=== PATIENT | male | born 1940 | race Caucasian/White ===

== ENCOUNTER → 2019-10-24 | Outpatient (CLI) | payer MEDICARE, OTHER, SELFPAY | PROVIDERS: Family Provider Electrodiagnostic Medicine; Visit Provider Nurse Practitioner | DX: E22.0 Acromegaly and pituitary gigantism (principal); D51.9 Vitamin B12 deficiency anemia, unspecified | CPT/HCPCS: 96372; J2353; J3420 ==

== ENCOUNTER 2019-11-04 12:59 | Outpatient (CLI) | payer MEDICARE, OTHER, SELFPAY ==
--- NOTE | 2019-11-04 13:15 | MR_ITS ---
WS: [id number] MRI HEAD WITH CONTRAST WITH PITUITARY PROTOCOL TECHNIQUE: Sagittal T1, T2 axial, T2 axial FLAIR, axial susceptibility weighted imaging, axial diffus ion weighted images, and coronal T2 images were obtained. Pre and post-T1 axial and post T1 coronal i mages. ADC and FSPGR images. High-resolution pituitary imaging CLINICAL INFORMATION: PITUITARY ADENOMA COMPARISON: MRI 6 30,015 FINDINGS: No evidence of restricted diffusion to suggest acute ischemia. Ventricular system and basal cisterns are patent. Moderate small vessel changes with moderate parenchymal volume loss. Small vessel changes in the basia. Normal posterior fossa. Normal vascular flow voids at the skull base. No extra-axial fl uid collections. No evidence of mass or mass effect. No hemosiderin on the susceptibility weighted im ages. Normal optic chiasm and pituitary infundibulum. No evidence of sellar or suprasellar mass. No evidenc e of microadenoma. Normal cavernous sinuses and Meckel's cave. Normal dural venous sinuses. No abnorm al intracranial enhancement. Normal vascular flow voids at the skull base. Proximal 7th and 8th cranial nerves appear normal. Mild disc bulging upper cervical spine at C3-C4 with mild central canal stenosis. MR/MR pituitary wo/w con* [id number] IMPRESSION: 1. No evidence of restricted diffusion to suggest acute ischemia. 2. Moderate small vessel changes with moderate parenchymal volume loss. Small vessel changes in the basia. This is slightly progressed since 2014. 3. No evidence of enhancing sellar or suprasellar mass. No evidence of microad enoma. 4. No abnormal intracranial enhancement. 5. No other significant interval changes.
== END 2019-11-04 13:00 | disposition home or self-care (01) ==
LOC: RADWPI 13:05
PROVIDERS: Family Provider Electrodiagnostic Medicine; PCP Electrodiagnostic Medicine; Referring Provider Electrodiagnostic Medicine; Visit Provider Electrodiagnostic Medicine
DX: D35.2 Benign neoplasm of pituitary gland (principal)
CPT/HCPCS: 70553; A9579

== ENCOUNTER 2019-11-17 09:03 | Outpatient (CLI) | payer MEDICARE, OTHER, SELFPAY ==
[2019-11-17 10:23] LABS: Alanine Aminotransferase 252 U/L (0-41); Albumin Level 4.1 g/dL (3.5-5.2); Alkaline Phosphatase 197 IU/L (40-130); Anion Gap 13.2 (5-19); Aspartate Amino Transferase 201 U/L (0-40); Blood Urea Nitrogen 19 mg/dL (8-23); Carbon Dioxide 31 mmol/L (22-29); Chloride 96 mmol/L (98-107); Free T4 Free Thyroxine 1.23 ng/dL (0.82-1.77); Globulin 3.3 g/dL (1.3-4.6); Glucose 177 mg/dL (74-106); Potassium 4.2 mmol/L (3.5-5.1); Sodium 136 mmol/L (136-145); Thyroid Stimulating Hormone 0.03 uIU/mL (0.27-4.20); Total Bilirubin 2.8 mg/dL (0.15-1.2); Total Protein 7.4 g/dL (6.6-8.7)
[2019-11-17 11:36] LABS: Basophils % 0.1 %; Eosinophils % 0.4 %; Hematocrit 45.5 % (42.0-52.0); Hemoglobin 14.8 g/dL (11.7-16.6); Lymphocytes # 0.7 10^3/uL (0.8-4.8); Lymphocytes % 8.6 %; Mean Corpuscular HGB Conc 32.5 g/dL (30.0-36.0); Mean Corpuscular Hemoglobin 29.7 pg (28.0-34.0); Mean Corpuscular Volume 91.2 fL (80-94); Mean Platelet Volume 10.3 fL (7.4-10.4); Monocytes # 0.4 10^3/uL (0.2-0.9); Monocytes % 5.3 %; Neutrophils # 6.6 10^3/uL (1.8-7.7); Neutrophils % 85.5 %; Nucleated Red Blood Cells % 0 %; Platelet Count 150 10^3/cmm (130-400); Red Blood Count 4.99 10^6/uL (4.1-5.3); Red Cell Distribution Width 12.6 % (12.1-15.1); White Blood Count 7.7 10^3/uL (4.0-10.0)
== END 2019-11-17 09:04 | disposition home or self-care (01) ==
LOC: ONCMED 09:08
PROVIDERS: Family Provider Electrodiagnostic Medicine; PCP Electrodiagnostic Medicine; Visit Provider Nurse Practitioner
DX: E22.0 Acromegaly and pituitary gigantism (principal); D51.9 Vitamin B12 deficiency anemia, unspecified; D35.2 Benign neoplasm of pituitary gland
CPT/HCPCS: 80053; 83003; 84146; 84305; 84307; 84439; 84443; 85025

== ENCOUNTER 2019-11-24 13:02 | Outpatient (CLI) | payer MEDICARE, OTHER, SELFPAY ==
[2019-11-24] MEDS: octreotide LAR depot 30 mg Kit IM (13:40)
[2019-11-24] MEDS: cyanocobalamin 1,000 mcg/mL SDV 1000 MCG IM (13:45)
--- NOTE | 2019-11-24 23:03 | ONC FU_ITS ---
Dr. Epstein Patient Follow-Up Note Patient: Asif Mcmillan Unit #: [id number]: 1940 Dicatated By: Yandel Epstein M.D.Date of Visit:Nov 24, 2019 Onc Med Follow-up/Prog Note Chief Complaint: Pituitary adenoma/acromegaly. 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 He also has B12 deficiency. He underwent transsphenoidal hypophysectomy for pituitary adenoma in 1999. He had associated acromegaly. He has since then been on treatment with Sandostatin analog. During this time he has continued to have mildly elevated but stable growth hormone levels. He has been stable clinically with no obvious recurrence/progression of his tumor. During followup, he did develop evidence of B12 deficiency, for which he remains on B12 replacement. His other medical illnesses include hypertension, hyperlipidemia, type 2 diabetes, GERD, and benign prostatic hypertrophy. He also is being followed by Dr. Mejias for thyroid nodules. He had smoked in the past, but he quit at least 25 years ago. On a visit in March 2013 he had reported some mild GI symptoms, which he had just attributed to a bug . His symptoms, however, persisted. He eventually presented to the emergency room in June 2013, at which point he had elevated liver enzymes and jaundice. CT showed multiple obstructing calculi in the common bile duct. He was transferred to [facility] in [place] where he underwent ERCP and stone extraction. In December 2013 he underwent left total knee arthroplasty by Dr. Miller in [place]. He underwent carpal tunnel release surgery in November or December 2017. He has been feeling pretty good generally, though he says that about a month ago he developed chills and pretty severe abdominal pain. Those symptoms had subsequently improved, but since then he has continued to have some mild discomfort in the epigastric area. He has had pretty good energy. ECOG score is 1. Appetite has been okay. He has not had shortness of breath or cough. He occasionally has a little bit of chest pain. He also sometimes has acid reflux. His bowel and bladder function have been okay. He currently is not having any significant joint or bone pain. He sometimes has lightheadedness, and he sometimes has numbness in his feet. Medications: Acetaminophen 1 Tablet (of 500 mg) Oral PRN, Lovastatin 40 mg - Take 1 Tablet Oral daily, MetFORMIN HCl 1 (500 mg) Tablet Oral daily, Metoprolol Succinate ER 1 Tablet (of 25 mg) Tablet SR 24 HR Oral daily, Probiotic Daily 1 Capsule Oral daily, Quinapril HCl 1 (10 mg) Tablet Oral daily PRN Allergies: No Known Allergies. Review of Systems: Constitutional - His energy is pretty good. He does light work. Appetite is good and weight is stable. He had chills about a month ago, but no documented fever. He has no night sweating. ECOG score is 1, ENMT - His sinuses are dry. No mouth sores. No sore throat or difficulty swallowing, Hematologic/Lymphatic - No abnormal bruising or bleeding, Respiratory - No shortness of breath. No cough. No pleuritic pain or hemoptysis, Cardiovascular - He occasionally has a little bit of chest pain. No palpitations, Gastrointestinal - He has had some discomfort in the epigstric area. No nausea or vomiting. He sometimes has acid reflux. No diarrhea or constipation. No blood in the stool or black stools, Genitourinary (M) - No dysuria or hematuria. No urinary frequency. No urgency or incontinence, Musculoskeletal - He currently has no significant joint or bone pain, Integumentary - No skin complications, Neurologic - No headache. He sometimes has lightheadedness. He sometimes has numbness in his feet, Psychiatric - No anxiety or depression. No insomnia. Vital Signs: Performed on Nov 24, 2019 13:18 Height - 68.00 in Weight - 199.8 lbs (LOW) BSA - 2.04 sq.m BMI - 30.38 (HIGH) Temperature - 97.8 F (LOW) Pulse - 77 /min Respiration - 20 /min BP - 163/80 mm(hg) (HIGH) O2 Sat - 93 % (LOW) Pain - 0 Physical Examination: Constitutional - He looks good generally, Eyes - Sclerae nonicteric. Conjunctivae clear, ENMT - No lesions noted in the oral cavity, Hematologic/Lymphatic - No cervical, clavicular, or axillary adenopathy, Respiratory - Lungs are clear with good air movement bilaterally, Cardiovascular - Heart rhythm is regular. There is a II/ systolic murmur at the base. There is no gallop or rub noted, Abdomen - Soft and nontender. Liver and spleen are not enlarged. There is no abdominal mass or ascites noted and there is no inguinal adenopathy, Extremities - No edema, Integumentary - There is a raised, keratotic skin lesion in the posterior aspect of the upper left arm. The appearance is suspicious for squamous cell cancer, Neurologic - No focal neurologic deficits noted. Lab/Imaging: CBC shows hemoglobin 14.8 g, white blood cell count 7700, and platelet count 150,000. His comprehensive metabolic profile shows elevated total bilirubin at 2.8 mg/dL with SGOT 201/40 U/L, SGPT 252/41 U/L, and alkaline phosphatase 197/130 IU/L. Impression: 1. Patient with pituitary adenoma with associated acromegaly. He has been on treatment with Sandostatin LAR following transsphenoidal hypophysectomy in 1999, thus far with no evidence of disease progression. 2. During followup he also was found to have evidence of B12 deficiency, for which he has been on B12 replacement. His other medical illnesses include: 3. Hypertension. 4. Hyperlipidemia. 5. Type II diabetes. 6. GERD. 7. Benign prostatic hypertrophy, status post TURP in September 2009. 8. Degenerative arthritis. 9. He had an episode of choledocholithiasis in June 2013. He was treated successfully with ERCP and stone extraction. 10. He is followed by Dr. Mejias for thyroid nodules. During follow-up he has continued his monthly somatostatin analog injections and he also has continued monthly B12 injections. His overall clinical status has remained stable, though last month he did have an episode of significant abdominal pain with chills. Since then he is continued to have some mild discomfort in the epigastric area. His bilirubin and liver enzymes are again mildly elevated. The clinical picture is very suspicious for recurrence of common duct stones. In addition, he does have a fairly prominent skin lesion on the left arm, appearance of which is suspicious for a squamous cell cancer. Plan: He continues treatment with Sandostatin LAR 30 mg by intramuscular injection monthly, and he will continue his monthly B12 injections. He will be scheduled for CT abdomen/pelvis. He will have further evaluation as indicated. In the meantime, he is to check with Dr. Soto regarding excision of the skin lesion on his left arm. I will see him again in 6 months, or sooner as needed. Signed By: Yanedl Epstein M.D. <<Signature on File>>
== END 2019-11-24 13:03 | disposition home or self-care (01) ==
LOC: ONCMED 13:06
PROVIDERS: Family Provider Electrodiagnostic Medicine; PCP Electrodiagnostic Medicine; Visit Provider Internal Medicine Medical Oncology
DX: E22.0 Acromegaly and pituitary gigantism (principal); D51.9 Vitamin B12 deficiency anemia, unspecified; E04.1 Nontoxic single thyroid nodule; I10 Essential (primary) hypertension; E78.5 Hyperlipidemia, unspecified; E11.9 Type 2 diabetes mellitus without complications; K21.9 Gastro-esophageal reflux disease without esophagitis; N40.0 Benign prostatic hyperplasia without lower urinary tract symptoms; M19.90 Unspecified osteoarthritis, unspecified site; L98.9 Disorder of the skin and subcutaneous tissue, unspecified; Z79.84 Long term (current) use of oral hypoglycemic drugs; Z87.891 Personal history of nicotine dependence
CPT/HCPCS: 96372; 99214; J2353; J3420

== ENCOUNTER 2019-12-05 08:51 | Outpatient (CLI) | payer MEDICARE, OTHER, SELFPAY ==
--- NOTE | 2019-12-05 08:59 | CT_ITS ---
WS: [id number] CT scan of the abdomen and pelvis with Oral and IV contrast. Additional two-dimensional coronal and s agittal reconstruction was performed. 12/05/2019 Clinical Data: Anemia, esophageal REFLUX, BENIGN NEOPLASM OF PITUITARY GLAND Comparison: CT abdomen and pelvis, 12/31/2017 DLP: 1165.[address] scans at [facility] use at least one of these dose optimization techniques: automat ed exposure control; mA and/or kV adjustment per patient size (includes targeted exams where dose is matched to clinical indication); or iterative reconstruction. Findings: The lower lungs show no nodules, masses or effusions. The liver, spleen, adrenal glands and pancreas are not changed. There is air in the liver bile ducts unchanged. The gallbladder is absent with clips in the gallbladder fossa from a cholecystectomy. The kidneys show equal bilateral contrast excretion with bilateral cysts. The left cyst is 6.0 cm with p eripheral calcification. No renal masses, hydronephrosis or calculi can be seen. The abdominal aorta is normal in size with calcification in the wall.. No appendicitis or diverticulitis is seen. Oral contrast is in the stomach, small bowel and proximal colon and there is no bowel dilatation. No abscess, adenopathy, ascites, mass, obstruction or free ai r is seen. The bladder shows a thick wall probably from chronic outlet obstruction. The prostate is enlarged.. N o inguinal hernia is seen. 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 CT/CT abdomen pelvis w con* [id number] Impression: 1. Cholecystectomy, biliary air, prostate enlargement, renal cysts and bladder wall thickening unchanged. 2. Negative for acute intra-abdominal or pelvic abnormalities.
[2019-12-05] MEDS: iohexol 300 mg/mL 50 mL Btl PO (09:08)
[2019-12-05] MEDS: iohexol 300 mg/mL 100 mL Btl IV (11:47)
== END 2019-12-05 08:52 | disposition home or self-care (01) ==
LOC: ONCMED 08:56
PROVIDERS: Family Provider Electrodiagnostic Medicine; PCP Electrodiagnostic Medicine; Visit Provider Internal Medicine Medical Oncology
DX: R10.13 Epigastric pain (principal); R74.8 Abnormal levels of other serum enzymes; N40.0 Benign prostatic hyperplasia without lower urinary tract symptoms; Q61.02 Congenital multiple renal cysts; Z90.49 Acquired absence of other specified parts of digestive tract
CPT/HCPCS: 74177; Q9967

== ENCOUNTER → 2019-12-22 08:13 | Outpatient (BNVA) | payer MEDICARE, OTHER, SELFPAY | PROVIDERS: Family Provider Electrodiagnostic Medicine; PCP Electrodiagnostic Medicine; Visit Provider Urology | DX: C67.9 Malignant neoplasm of bladder, unspecified (principal); N39.9 Disorder of urinary system, unspecified; N42.1 Congestion and hemorrhage of prostate; N40.1 Benign prostatic hyperplasia with lower urinary tract symptoms; Z85.51 Personal history of malignant neoplasm of bladder | CPT/HCPCS: 81001 ==

== ENCOUNTER 2019-12-25 12:12 | Outpatient (CLI) | payer MEDICARE, OTHER, SELFPAY ==
[2019-12-25] MEDS: octreotide LAR depot 30 mg Kit IM (12:39)
[2019-12-25] MEDS: cyanocobalamin 1,000 mcg/mL SDV 1000 MCG SUBCUT (12:40)
== END 2019-12-25 12:13 | disposition home or self-care (01) ==
LOC: ONCMED 12:14
PROVIDERS: Family Provider Electrodiagnostic Medicine; PCP Electrodiagnostic Medicine; Visit Provider Internal Medicine Medical Oncology
DX: E22.0 Acromegaly and pituitary gigantism (principal); D51.9 Vitamin B12 deficiency anemia, unspecified
CPT/HCPCS: 96372; J2353; J3420

== ENCOUNTER 2020-01-23 09:53 | Outpatient (CLI) | payer MEDICARE, OTHER, SELFPAY ==
[2020-01-23] MEDS: cyanocobalamin 1,000 mcg/mL SDV 1000 MCG SUBCUT (10:10)
[2020-01-23] MEDS: octreotide LAR depot 30 mg Kit IM (10:12)
== END 2020-01-23 09:54 | disposition home or self-care (01) ==
LOC: ONCMED 09:53
PROVIDERS: Family Provider Electrodiagnostic Medicine; PCP Electrodiagnostic Medicine; Visit Provider Internal Medicine Medical Oncology
DX: E22.0 Acromegaly and pituitary gigantism (principal); D51.9 Vitamin B12 deficiency anemia, unspecified
CPT/HCPCS: 96372; J2353; J3420

== ENCOUNTER 2020-02-23 13:45 | Outpatient (CLI) | payer MEDICARE, OTHER, SELFPAY ==
[2020-02-23] MEDS: cyanocobalamin 1,000 mcg/mL SDV 1000 MCG IM (13:55)
[2020-02-23] MEDS: octreotide LAR depot 30 mg Kit IM (13:55)
== END 2020-02-23 13:46 | disposition home or self-care (01) ==
LOC: ONCMED 13:45
PROVIDERS: Family Provider Electrodiagnostic Medicine; PCP Electrodiagnostic Medicine; Visit Provider Internal Medicine Medical Oncology
DX: E22.0 Acromegaly and pituitary gigantism (principal); D35.2 Benign neoplasm of pituitary gland; D51.9 Vitamin B12 deficiency anemia, unspecified
CPT/HCPCS: 96372; J2353; J3420

== ENCOUNTER 2020-03-07 19:50 | Emergency (ER) | payer MEDICARE, OTHER, SELFPAY ==
[2020-03-07 19:51] VITALS: BP 96/62; PULSE 118; RESP 20; TEMP 37.5; O2SAT 97; BMI 27.2
--- NOTE | 2020-03-07 19:57 | CTR_ITS ---
PROCEDURE INFORMATION: Exam: CT Head Without Contrast Exam date and time: 03/07/2020 8:05 PM Age: 79 years old Clinical indication: Altered mental status/memory loss and fever; Confusion or disorientation; Patient HX: AMS - fever - known pituitary adenoma TECHNIQUE: Imaging protocol: Computed tomography of the head without contrast. Radiation optimization: All CT scans at this facility use at least one of these dose optimization techniques: automated exposure control; mA and/or kV adjustment per patient size (includes targeted exams where dose is matched to clinical indication); or iterative reconstruction.Total DLP: 797.96 mGy-cm COMPARISON: MR pituitary wo/w con* [id number] 11/04/2019 1:13 PM FINDINGS: Brain: Mild atrophy and mild white matter chronic microvascular changes are noted. No hemorrhage or CT evidence of acute infarction is seen. Ventricles: Normal. No ventriculomegaly. Bones/joints: Unremarkable. No acute fracture. Sinuses: Mild right anterior ethmoid sinusitis is appreciated. Mastoid air cells: Visualized mastoid air cells are well aerated. Soft tissues: Unremarkable. CT/CT head wo con* [id number] IMPRESSION: No acute intracranial abnormality. Radiation Dose CTDIVOL = (mGy): DLP = 797.96 (mGy-cm)
--- NOTE | 2020-03-07 19:57 | XR_ITS ---
WS: [id number] PORTABLE CHEST HISTORY: ams COMPARISON: 07/11/2013 Pacer pads are present over the thorax. Coarse interstitial thickening throughout both lungs. Increasing consolidation and density in the RIG HT infrahilar region is probably areas of atelectasis. Similar findings on the LEFT which are partial ly obscured. No pleural effusion or pneumothorax. Cardiac size: Normal. Mediastinum/Aorta: Moderate atherosclerosis aorta with ectasia. 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 Sclerotic foci in the RIGHT scapula. Degenerative changes at the glenohumeral joints. XR/XR chest 1V portable [id number] IMPRESSION: 1. Chronic emphysema. 2. Bilateral lower lung fuller increasing consolidations. Probably atelectasis but developing pneumonia is a possibility also.
--- NOTE | 2020-03-07 20:00 | ECG_ITS ---
Measurements Intervals [place] Rate: 112 P: -67 CA: 94 QRS: -30 QRSD: 94 T: -17 QT: 278 QTc: 380 JUNCTIONAL TACHYCARDIA INFERIOR MYOCARDIAL INFARCTION , OF INDETERMINATE AGE [40+ ms Q WAVE AND/OR ST/T ABNORMALITY IN II/aVF] No previous ECG available for comparison Electronically Signed On 03-08-2020 18:33:01 CDT by Joanne Carpenter M.D. [id number]
[2020-03-07 20:05] LABS: ABG PH Result 7.41 (7.35-7.45); Arterial Blood Gas Hematocrit 46.9 % (42-52); Base Excess ABG -4.7 mmol/L (-2.0-2.0); Blood Gas Allen Test Pos; Blood Gas Sample Site Radial, right; Blood Gas Sample Type Arterial; HCO3 ABG 18.5 mmol/L (22-26); Oxygen Device NRB; PO2 ABG 62.5 mmHg (80.0-100.0)
[2020-03-07 20:10] LABS: Hematocrit 48.6 % (42.0-52.0); Hemoglobin 16.3 g/dL (11.7-16.6); Mean Corpuscular HGB Conc 33.5 g/dL (30.0-36.0); Mean Corpuscular Hemoglobin 30.9 pg (28.0-34.0); Mean Platelet Volume 9.8 fL (7.4-10.4); Nucleated Red Blood Cells % 0 %; Platelet Count 112 10^3/cmm (130-400); Positive M 1; Red Blood Count 5.28 10^6/uL (4.1-5.3); White Blood Count 5.9 10^3/uL (4.0-10.0)
--- NOTE | 2020-03-07 20:15 | W.ED.FEVER ---
HPI - Fever General: Chief Complaint: Fever Stated Complaint: fever/ sob/ htn Time Seen by Provider: 03/07/20 19:57 History of Present Illness: HPI Narrative: 79-year-old male presents with fever and altered mental status. Temperature 100.4 at home, with altered mental status. He is normally ANO x4 according to family. He was significantly confused, and on the way to the hospital in the ambulance became unresponsive for a brief period. At that point his blood pressure was 77 systolic. His oxygen levels were low as well. He is awake and talking on arrival here. MD elicited complaint: fever Onset (ago): hour(s) Associated symptoms: Reports chills and confusion; Deny chest pain, dysuria, headache(s), sinus pain or vomiting Review of Systems Const: Reports: fever and chills Eyes: Denies: change in vision ENMT: Denies: painful swallowing or facial/sinus pain Card: Denies: chest pain Resp: Reports: shortness of breath GI: Denies: vomiting : Reports: urinary frequency; Denies: painful urination or urinary urgency Neuro: Reports: confusion; Denies: headache or seizure-like activity PFS ED PFSH: Social History Smoking and tobacco status: former smoker Alcohol intake: never Adopted: No Caregiver/support person: No Lives independently: Yes Marital status: / Current occupational status: retired History of recent travel: No Current gender identity: Male Physical Exam Const: GENERAL APPEARANCE: well developed ORIENTATION/CONSCIOUSNESS: Yes oriented to person; not oriented to place and not oriented to time HENMT: COMMON NORMALS: normocephalic HEAD & SCALP: normocephalic FACE & SINUS: normal facial exam NOSE: no nasal discharge Eye: COMMON NORMALS: PERRL, EOMs intact bilaterally and conjunctivae normal EYELID: eyelids normal CONJUNCTIVA: Yes conjunctivae normal PUPIL: Yes PERRL Neck/C-Spine: COMMON NORMALS: full ROM GENERAL: No tracheal deviation OTHER: Soft tissue mass present in the base of the anterior neck. Reportedly a fatty tumor. Chest: COMMONS NORMALS: inspection of chest normal CHEST: No tenderness Resp: COMMON NORMALS: clear to auscultation bilaterally EFFORT & INSPECTION: Yes tachypneic, Yes respiratory distress, No retractions, No uses accessory muscles and No tracheal deviation AUSCULTATION: clear to auscultation bilaterally, no rhonchi, no wheezes and diminished lung sounds Cardio: COMMON NORMALS: regular rhythm RATE: tachycardic RHYTHM: regular rhythm HEART SOUNDS: no murmurs PERIPHERAL PULSES: radial pulses present GI: INSPECTION: No abdominal distension AUSCULTATION: No hyperactive bowel sounds and No hypoactive bowel sounds PALPATION: No guarding and No rigid PERCUSSION: no dullness to percussion and no tympanic to percussion Neuro: SENSORIUM/ORIENTATION: Yes oriented to person, No oriented to place and No oriented to time Skin: COMMON NORMALS: no rashes or lesions noted GENERAL SKIN EXAM: no rashes or lesions noted Course Vital Signs: Vital signs: Vital Signs Temperature 99.5 F 03/07/20 19:51 Pulse Rate 96 03/08/20 00:25 Respiratory Rate 20 H 03/08/20 00:25 Blood Pressure 104/52 03/08/20 00:25 Pulse Oximetry 93 03/08/20 00:25 MDM - Fever MDM Narrative: Medical decision making narrative: 79-year-old male presents with mental status changes and low blood pressure. Blood pressure was 77 systolic in the ambulance. Fluid boluses brought his pressure up some. At the beginning of his ER stay, he went into SVT with a sustained rate over 200-220. 2 doses of adenosine did not completely break his rhythm. He was then bolused 15 mg of Cardizem with resolution to sinus tachycardia with a rate of 100 or so. He is placed on a drip. He is given 4 L of fluid now. His blood pressure is 120/52. He is awake and talking. He is on oxygen. Chest x-ray shows some likely pulmonary edema as does CTA of the chest done for hypoxia. CT of the belly shows dilated liver and bile ducts with small stones throughout. His bilirubin is 6.1. He has elevated transaminases. His lactic acid was 7. ERCP is suggested. We do not have that capability here. He has been given Levaquin Vanco and Zosyn. He is not on pressors at this point. We have a call out to the hospitalist team at [facility] in [place] as we do not have gastroenterology here. Lab Data: Labs: Lab Results 03/07/20 03/07/20 03/07/20 Range/Units 19:55 19:55 19:55 WBC 5.9 (4.0-10.0) 10^3/ uL RBC 5.28 (4.1-5.3) 10^6/u L Hgb 16.3 (11.7-16.6) g/dL Hct 48.6 (42.0-52.0) % MCV 92.0 (80-94) fL MCH 30.9 (28.0-34.0) pg MCHC 33.5 (30.0-36.0) g/dL RDW 13.0 (12.1-15.1) % Plt Count 112 L (130-400) 10^3/c mm MPV 9.8 (7.4-10.4) fL Nucleated RBC % (a uto) 0 % Total Counted 100 (0-100) Segmented Neutroph ils 51 % Band Neutrophils 34.0 % Lymphocytes (Manua l) 7 % Monocytes (Manual) 8.0 % Absolute Monocytes 0.5 (0.1-0.6) 10^3/c mm Nucleated RBCs # 0.0 /100WBC Platelet Estimate Decreased (Normal) Specimen Type Sample Site ABG pH (7.35-7.45) ABG pCO2 (35-45) mmHg ABG pO2 (80.0-100.0) mmH g ABG HCO3 (22-26) mmol/L ABG Base Excess (-2.0-2.0) mmol/ L Aniket Test Hematocrit (42-52) % O2 Delivery Device O2 Liters/Min % Business Enterprise Officer ID Sodium 140 (136-145) mmol/L Potassium 4.4 (3.5-5.1) mmol/L Chloride 100 (98-107) mmol/L Carbon Dioxide 23 (22-29) mmol/L Anion Gap 21.4 H (5-19) BUN 25 H (8-23) mg/dL Creatinine 1.3 H (0.7-1.2) mg/dL Glucose 298 H (65-115) mg/dL Calculated Osmolal ity 298 H (285-295) mOsm/k g Lactate 7.3 H* (0.5-2.2) mmol/L Calcium 11.0 H (8.5-10.5) mg/dL Total Bilirubin 6.1 H (0.15-1.2) mg/dL AST 281 H (0-40) U/L ALT 367 H (0-41) U/L Alkaline Phosphata se 192 H (40-130) IU/L Troponin T Baselin e (0-15) ng/mL C-Reactive Protein 130.1 H (0.0-4.9) mg/L NT-Pro-B Natriuret Pep (0-450) pg/mL Total Protein 6.3 L (6.6-8.7) g/dL Albumin 3.3 L (3.5-5.2) g/dL Globulin 3.0 (1.3-4.6) g/dL 03/07/20 03/07/20 03/07/20 Range/Units 19:55 19:55 20:05 WBC (4.0-10.0) 10^3/ uL RBC (4.1-5.3) 10^6/u L Hgb (11.7-16.6) g/dL Hct (42.0-52.0) % MCV (80-94) fL MCH (28.0-34.0) pg MCHC (30.0-36.0) g/dL RDW (12.1-15.1) % Plt Count (130-400) 10^3/c mm MPV (7.4-10.4) fL Nucleated RBC % (a uto) % Total Counted (0-100) Segmented Neutroph ils % Band Neutrophils % Lymphocytes (Manua l) % Monocytes (Manual) % Absolute Monocytes (0.1-0.6) 10^3/c mm Nucleated RBCs # /100WBC Platelet Estimate (Normal) Specimen Type Arterial Sample Site Radial, right ABG pH 7.41 (7.35-7.45) ABG pCO2 29.0 L (35-45) mmHg ABG pO2 62.5 L (80.0-100.0) mmH g ABG HCO3 18.5 L (22-26) mmol/L ABG Base Excess -4.7 L (-2.0-2.0) mmol/ L Aniket Test Pos Hematocrit 46.9 (42-52) % O2 Delivery Device Nrb O2 Liters/Min 12.0 % Business Enterprise Officer ID [email or web address] Sodium (136-145) mmol/L Potassium (3.5-5.1) mmol/L Chloride (98-107) mmol/L Carbon Dioxide (22-29) mmol/L Anion Gap (5-19) BUN (8-23) mg/dL Creatinine (0.7-1.2) mg/dL Glucose (65-115) mg/dL Calculated Osmolal ity (285-295) mOsm/k g Lactate (0.5-2.2) mmol/L Calcium (8.5-10.5) mg/dL Total Bilirubin (0.15-1.2) mg/dL AST (0-40) U/L ALT (0-41) U/L Alkaline Phosphata se (40-130) IU/L Troponin T Baselin e 49 H (0-15) ng/mL C-Reactive Protein (0.0-4.9) mg/L NT-Pro-B Natriuret Pep 6473 H (0-450) pg/mL Total Protein (6.6-8.7) g/dL Albumin (3.5-5.2) g/dL Globulin (1.3-4.6) g/dL Critical Care Time Critical Care Time: Critical Care Time: Yes Total Critical Care Time: 70 Attestation: This case had a high probability of a clinically significant, sudden, or life threatening deterioration of this patient's condition which required my full and direct attention, intervention and personal management. Discharge Plan Discharge Prescriptions: No Action lidocaine HCl 2 % jelly 1 applic INTRA-URET ONCE Qty: 1 RF: 0 metoprolol succinate 25 mg tablet extended release 24 hr 25 mg PO DAILY RF: 0 lovastatin 40 mg tablet 40 mg PO DAILY RF: 0 metformin 500 mg tablet 500 mg PO DAILY RF: 0 Adult Probiotic 3 billion cell capsule 3,000 mmu cells PO DAILY RF: 0 Coding Level of Care Code ED Api Product Manager for Chg Fwd Exam Comprehensive
[2020-03-07 20:25] LABS: Alanine Aminotransferase 367 U/L (0-41); Albumin Level 3.3 g/dL (3.5-5.2); Alkaline Phosphatase 192 IU/L (40-130); Anion Gap 21.4 (5-19); Aspartate Amino Transferase 281 U/L (0-40); Blood Urea Nitrogen 25 mg/dL (8-23); C Reactive Protein 130.1 mg/L (0.0-4.9); Carbon Dioxide 23 mmol/L (22-29); Chloride 100 mmol/L (98-107); Glucose 298 mg/dL (65-115); Osmolality Calculated 298 mOsm/kg (285-295); Potassium 4.4 mmol/L (3.5-5.1); Sodium 140 mmol/L (136-145); Total Bilirubin 6.1 mg/dL (0.15-1.2); Total Protein 6.3 g/dL (6.6-8.7)
[2020-03-07] MEDS: sodium chloride 0.9% 1,000 ML 999 ML IV ×2 (20:34→20:35)
[2020-03-07 20:37] LABS: Lactate (Lactic Acid level) 7.3 mmol/L (0.5-2.2)
[2020-03-07 20:45] LABS: Slide Review Slide Review Perform
[2020-03-07 20:46] LABS: Segmented Neutrophils 51 %; Total Cells Counted 100 (0-100)
[2020-03-07 20:47] LABS: Lymphocytes 7 %; Monocytes Absolute 0.5 10^3/cmm (0.1-0.6); Platelet Estimate Decreased (Normal)
[2020-03-07 20:56] VITALS: BP 86/34; PULSE 191; RESP 20; O2SAT 94
[2020-03-07 20:57] VITALS: BP 86/34; PULSE 94; RESP 18
[2020-03-07] MEDS: adenosine 3 mg/mL SDV 2mL 6 MG IVP (20:58)
[2020-03-07] MEDS: adenosine 3 mg/mL SDV 2mL 12 MG IVP (20:59)
--- NOTE | 2020-03-07 21:02 | US_ITS ---
WS: [id number] RIGHT UPPER QUADRANT ULTRASOUND HISTORY: sepsis, elevated liver enzymes COMPARISON: CT 03/07/2020 Liver: 18.1 cm in length. Liver slightly enlarged with mild central bile duct dilatation. No mass ramona ntified. Gallbladder: Gallbladder has been surgically removed. CBD: 2.1 cm, marked dilatation of the common bile duct and the central intrahepatic ducts demonstrate s mild to moderate dilatation. Pancreatic head is not well visualized. Pancreas: Poorly visualized. Right kidney: 13.4 cm in length. Mild diffuse cortical thinning. Pelvic cyst in the lower pole with a maximum diameter of 2.0 cm. Aorta and IVC: Unremarkable. No ascites. US/US gall bladder [id number] IMPRESSION: 1. Intrahepatic and extra hepatic bile duct dilatation. Highly suspicious for distal obstructing process such as choledocholithiasis or pancreatic mass. 2. Prior cholecystectomy. 3. Mild hepatomegaly.
[2020-03-07 21:09] VITALS: BP 105/51; PULSE 101; RESP 21; O2SAT 94
[2020-03-07 21:45] VITALS: BP 97/51; PULSE 100; RESP 20; O2SAT 93
[2020-03-07] MEDS: acetaminophen 325 mg Tablet 650 MG PO (21:46)
[2020-03-07] MEDS: cefTRIAXone 1,000 MG in sodium chloride 0.9% (plus) 50 ML 100 MG IV (21:46)
[2020-03-07] MEDS: vancomycin 1,000 MG in sodium chloride 0.9% 250 ML 250 MG IV (22:34)
[2020-03-07 22:36] VITALS: BP 113/59; PULSE 101; RESP 23; O2SAT 92
[2020-03-07] MEDS: iodixanol 320 mg/mL 100mL Btl IV (22:48)
[2020-03-07 23:05] LABS: NT Pro B Type Natriuretic Pept 6473 pg/mL (0-450)
--- NOTE | 2020-03-07 23:20 | CTR_ITS ---
PROCEDURE INFORMATION: Exam: CT Angiography Chest With Contrast Exam date and time: 03/07/2020 11:43 PM Age: 79 years old Clinical indication: Fever; Abdominal pain; Generalized; Dyspnea; Chest pain; Type not specified; Prior surgery; Surgery date: 6+ months; Surgery type: Gb, back, hernia; Additional info: Hypoxia, abdominal pain TECHNIQUE: Imaging protocol: Computed tomographic angiography of the chest with intravenous contrast. 3D rendering: MIP and/or 3D reconstructed images were created by the technologist. Radiation optimization: All CT scans at this facility use at least one of these dose optimization techniques: automated exposure control; mA and/or kV adjustment per patient size (includes targeted exams where dose is matched to clinical indication); or iterative reconstruction.Total DLP: 1756.95 mGy-cm Contrast material: VISI; Contrast volume: 95 ml; Contrast route: IV; COMPARISON: CT chest wo con [id number] 10/26/2014 10:54 AM FINDINGS: Pulmonary arteries: Mild patient motion occurs during the examination. No pulmonary embolus is seen. Aorta: Atherosclerotic changes are seen in the thoracic aorta. 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 Lungs: Mild dependent atelectasis is seen in both lungs high. Mild pulmonary edema is also appreciated. Pleural space: Unremarkable. No pneumothorax. No pleural effusion. Heart: Unremarkable. No cardiomegaly. No pericardial effusion. Lymph nodes: Unremarkable. No enlarged lymph nodes. Bones/joints: Unremarkable. No acute fracture. Soft tissues: Unremarkable. IMPRESSION: 1. Mild patient motion. No pulmonary embolus is seen. 2. Mild pulmonary edema and bilateral subsegmental atelectasis. 3. Atherosclerosis and coronary artery disease. 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 PROCEDURE INFORMATION: Exam: CT Abdomen And Pelvis With Contrast Exam date and time: 03/07/2020 11:43 PM Age: 79 years old Clinical indication: Fever; Abdominal pain; Generalized; Dyspnea; Chest pain; Type not specified; Prior surgery; Surgery date: 6+ months; Surgery type: Gb, back, hernia; Additional info: Hypoxia, abdominal pain TECHNIQUE: Imaging protocol: Computed tomography of the abdomen and pelvis with intravenous contrast. Radiation optimization: All CT scans at this facility use at least one of these dose optimization techniques: automated exposure control; mA and/or kV adjustment per patient size (includes targeted exams where dose is matched to clinical indication); or iterative reconstruction.Total DLP: 1756.95 mGy-cm Contrast material: VISI; Contrast volume: 95 ml; Contrast route: IV; COMPARISON: CT chest wo con [id number] 10/26/2014 10:54 AM FINDINGS: Liver: Normal. No mass. Gallbladder and bile ducts: The gallbladder is been removed. Moderate biliary ductal dilatation is noted. Trace pneumobilia is also appreciated. Small radiodense structures are seen in the distal common bile duct. The largest structure and is near the ampulla and measures 15 mm. Pancreas: The pancreas appears normal. No pancreatic ductal dilatation. Spleen: Normal. No splenomegaly. Adrenals: Normal. No mass. Kidneys and ureters: A 5.7 cm exophytic left renal cyst with tiny wall calcifications is noted. A small 2.7 cm right renal cyst is also seen. No hydronephrosis. Stomach and bowel: Diverticulosis coli is seen, without evidence of diverticulitis. No intestinal obstruction. Appendix: The appendix is normal. Intraperitoneal space: Unremarkable. No free air. No significant fluid collection. Vasculature: Unremarkable. No abdominal aortic aneurysm. Lymph nodes: Unremarkable. No enlarged lymph nodes. Bladder: Unremarkable as visualized. Reproductive: The prostate gland is moderately enlarged. Bones/joints: Unremarkable. No acute fracture. Soft tissues: Unremarkable. CT/CT angio chest w abd pel w con IMPRESSION: 1. Biliary ductal dilatation and small radiodense structures in the distal common bile duct. Ductal stones, small hematomas or a neoplastic process are primary considerations. Consider ERCP for further assessment. 2. Complex left renal cyst. 3. Prostatomegaly. 4. Diverticulosis coli. Radiation Dose CTDIVOL = (mGy): DLP = 1756.95~1756.95 (mGy-cm)
[2020-03-07 23:26] LABS: Troponin(5th) Baseline 49 ng/mL (0-15)
[2020-03-08] MEDS: levofloxacin-dextrose 5 % 750 MG/150 ML PREMIX 100 MG IV (00:24)
[2020-03-08 00:25] VITALS: BP 104/52; PULSE 96; RESP 20; O2SAT 93
[2020-03-08 01:49] LABS: Add Urine Microscopic? YES; Bilirubin Urine 2+ (NEGATIVE); Blood Urine 3+ (Negative); Glucose Urine UA 4+ (Normal); Ketones Urine 1+ (Negative); Leukocyte Esterase Urine Trace (Negative); Nitrate Urine Negative (Negative); Protein Urine 1+ (Negative); Specific Gravity, Urine 1.015 (1.005-1.030); Urine Appearance Cloudy (CLEAR); Urine Color Amber (Yellow); Urobilinogen Urine 4+ mg/dL (Negative); pH Urine 5 (5-7)
[2020-03-08 01:50] LABS: RBC Urine >100 /hpf (0-2)
[2020-03-08 01:51] LABS: Squamous Epithelial Cell Urine 0-4 (0-5); WBC Urine 0-4 /hpf (0-5)
[2020-03-08 01:52] LABS: Renal Epithelial Cells Urine 0-4 /hpf
[2020-03-08 01:53] LABS: Bacteria Urine 1+; Fine Granular Casts Urine 0-4 /lpf; Mucus Urine TRACE
[2020-03-08 01:54] LABS: Coarse Granular Casts Urine 0-4 /lpf
[2020-03-08 01:55] LABS: Add Urine Culture? Yes; Other Casts Urine EPITHELIAL /lpf
--- NOTE | 2020-03-08 10:14 | PC.NURSE ---
Lab called critical blood culture results. Neha Dillard called d/t pt being transferred there last evening. Spoke with MANUELA Seals on unit and reported blood culture results 2/2 bottles positive for gram negative rods.
--- NOTE | 2020-03-08 17:01 | PC.NURSE ---
Spoke with MANUELA Pierre at [facility]. Relayed critical blood culture results. 4/4 bottles with gram negative rods. 1/4 bottles with gram + cocci in chains.
== END 2020-03-08 02:13 ==
LOC: ER 20:34
PROVIDERS: Emergency Provider Emergency Medicine; PCP Electrodiagnostic Medicine
DX: R50.9 Fever, unspecified (principal); R06.02 Shortness of breath; R41.82 Altered mental status, unspecified; Z79.84 Long term (current) use of oral hypoglycemic drugs; Z87.891 Personal history of nicotine dependence
CPT/HCPCS: 12345; 36415; 36600; 51702; 70450; 71045; 71275; 74177; 76705; 80053; 81001; 82803; 83605; 83880; 84484; 85007; 85025; 86140; 87040; 87077; 87086; 87186; 87205; 93005; 96365; 96366; 96367; 96368; 96375; 99284; 99291; J0153; J0696; J1956; J3370; J3490; J7030; J7050; Q9967

== ENCOUNTER 2020-03-24 13:44 | Outpatient (CLI) | payer MEDICARE, OTHER, SELFPAY ==
[2020-03-24] MEDS: octreotide LAR depot 30 mg Kit IM (14:06)
[2020-03-24] MEDS: cyanocobalamin 1,000 mcg/mL SDV 1000 MCG IM (14:07)
== END 2020-03-24 13:45 | disposition home or self-care (01) ==
LOC: ONCMED 13:49
PROVIDERS: PCP Electrodiagnostic Medicine; Visit Provider Internal Medicine Medical Oncology
DX: E22.0 Acromegaly and pituitary gigantism (principal); D51.9 Vitamin B12 deficiency anemia, unspecified; D35.2 Benign neoplasm of pituitary gland; I10 Essential (primary) hypertension; E11.9 Type 2 diabetes mellitus without complications; E78.5 Hyperlipidemia, unspecified; K21.9 Gastro-esophageal reflux disease without esophagitis; N40.0 Benign prostatic hyperplasia without lower urinary tract symptoms
CPT/HCPCS: 96372; J2353; J3420

== ENCOUNTER 2020-04-26 12:58 | Outpatient (CLI) | payer MEDICARE, OTHER, SELFPAY ==
[2020-04-26] MEDS: cyanocobalamin 1,000 mcg/mL SDV 1000 MCG SUBCUT (13:20)
[2020-04-26] MEDS: octreotide LAR depot 30 mg Kit IM (13:25)
== END 2020-04-26 12:59 | disposition home or self-care (01) ==
LOC: ONCMED 13:01
PROVIDERS: PCP Electrodiagnostic Medicine; Visit Provider Internal Medicine Medical Oncology
DX: E22.0 Acromegaly and pituitary gigantism (principal); D51.9 Vitamin B12 deficiency anemia, unspecified; D35.2 Benign neoplasm of pituitary gland; I10 Essential (primary) hypertension; E11.9 Type 2 diabetes mellitus without complications; E78.5 Hyperlipidemia, unspecified; K21.9 Gastro-esophageal reflux disease without esophagitis; N40.0 Benign prostatic hyperplasia without lower urinary tract symptoms
CPT/HCPCS: 96372; J2353; J3420

== ENCOUNTER → 2020-04-27 14:26 | Outpatient (BNVA) | payer MEDICARE, OTHER, SELFPAY | PROVIDERS: PCP Electrodiagnostic Medicine; Visit Provider Urology | DX: N40.1 Benign prostatic hyperplasia with lower urinary tract symptoms (principal); R33.8 Other retention of urine; Z85.51 Personal history of malignant neoplasm of bladder; N32.89 Other specified disorders of bladder | CPT/HCPCS: 81001 ==

== ENCOUNTER → 2020-05-03 07:58 | Outpatient (BNVA) | payer MEDICARE, OTHER, SELFPAY | PROVIDERS: PCP Electrodiagnostic Medicine; Visit Provider Urology | DX: R33.8 Other retention of urine (principal); N32.89 Other specified disorders of bladder; N42.1 Congestion and hemorrhage of prostate; Z85.51 Personal history of malignant neoplasm of bladder | CPT/HCPCS: 81001 ==

== ENCOUNTER 2020-05-19 09:42 | Outpatient (CLI) | payer MEDICARE, OTHER, SELFPAY ==
[2020-05-19 10:48] LABS: Basophils % 0.3 %; Eosinophils # 0.1 10^3/uL (0.0-0.8); Eosinophils % 1.9 %; Hemoglobin 12.6 g/dL (11.7-16.6); Lymphocytes % 28.6 %; Mean Corpuscular HGB Conc 30.7 g/dL (30.0-36.0); Mean Corpuscular Volume 94.5 fL (80-94); Mean Platelet Volume 10.1 fL (7.4-10.4); Monocytes # 0.3 10^3/uL (0.2-0.9); Monocytes % 7.7 %; Neutrophils # 2.24 10^3/uL (1.8-7.7); Neutrophils % 61.5 %; Nucleated Red Blood Cells % 0 %; Platelet Count 183 10^3/cmm (130-400); Red Blood Count 4.34 10^6/uL (4.1-5.3); Red Cell Distribution Width 12.1 % (12.1-15.1); White Blood Count 3.6 10^3/uL (4.0-10.0)
[2020-05-19 11:01] LABS: Alanine Aminotransferase 11 U/L (0-41); Albumin Level 4.3 g/dL (3.5-5.2); Alkaline Phosphatase 57 IU/L (40-130); Anion Gap 10.1 (5-19); Aspartate Amino Transferase 20 U/L (0-40); Blood Urea Nitrogen 10 mg/dL (8-23); Calcium 10.1 mg/dL (8.5-10.5); Carbon Dioxide 31 mmol/L (22-29); Chloride 98 mmol/L (98-107); Globulin 3.1 g/dL (1.3-4.6); Glucose 126 mg/dL (65-115); Osmolality Calculated 278 mOsm/kg (285-295); Potassium 4.1 mmol/L (3.5-5.1); Sodium 135 mmol/L (136-145); Total Bilirubin 0.6 mg/dL (0.15-1.2); Total Protein 7.4 g/dL (6.6-8.7)
== END 2020-05-19 09:43 | disposition home or self-care (01) ==
LOC: ONCMED 09:46
PROVIDERS: PCP Electrodiagnostic Medicine; Visit Provider Internal Medicine Medical Oncology
DX: D35.2 Benign neoplasm of pituitary gland (principal); E22.0 Acromegaly and pituitary gigantism
CPT/HCPCS: 80053; 84305; 85025

== ENCOUNTER 2020-05-26 13:51 | Outpatient (CLI) | payer MEDICARE, OTHER, SELFPAY ==
[2020-05-26] MEDS: cyanocobalamin 1,000 mcg/mL SDV 1000 MCG IM (14:55)
[2020-05-26] MEDS: octreotide LAR depot 30 mg Kit IM (15:04)
--- NOTE | 2020-05-30 17:22 | ONC FU_ITS ---
[facility] Patient Note Patient: Asif Mcmillan Unit #: [id number]: 1940 Dictated By: Arash RichmondDate of Visit: May 26, 2020 Onc MED Follow-Up/Prog Note Chief Complaint: Pituitary adenoma/acromegaly. 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 He also has B12 deficiency. He underwent transsphenoidal hypophysectomy for pituitary adenoma in 1999. He had associated acromegaly. He has since then been on treatment with Sandostatin analog. During this time he has continued to have mildly elevated but stable growth hormone levels. He has been stable clinically with no obvious recurrence/progression of his tumor. During followup, he did develop evidence of B12 deficiency, for which he remains on B12 replacement. His other medical illnesses include hypertension, hyperlipidemia, type 2 diabetes, GERD, and benign prostatic hypertrophy. He also is being followed by Dr. Mejias for thyroid nodules. He had smoked in the past, but he quit at least 25 years ago. On a visit in March 2013 he had reported some mild GI symptoms, which he had just attributed to a bug . His symptoms, however, persisted. He eventually presented to the emergency room in June 2013, at which point he had elevated liver enzymes and jaundice. CT showed multiple obstructing calculi in the common bile duct. He was transferred to [facility] in [place] where he underwent ERCP and stone extraction. In December 2013 he underwent left total knee arthroplasty by Dr. Miller in [place]. He underwent carpal tunnel release surgery in November or December 2017. Mr Mcmillan is here today for followup. He was last seen in October [address] Epstein. He had reported some abdominal pain at that visit and Dr. Epstein had ordered a CT of the abdomen pelvis. This was done on December 05, 2019. There was no acute findings. Reported cholecystectomy, biliary area, prostate enlargement, renal cyst and bladder wall thickening unchanged. Was negative for acute intra-abdominal or pelvic abnormalities. 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 Mr. Manjarrez presented to the emergency room on March 07, 2020 with complaints of fever and altered mental status. His temperature had been 100.4 at home. He was confused and on the way to the hospital became unresponsive for a brief moment while in the ambulance. However he was awake and talkative upon arrival to the ER. He was hypotensive. He did have SVT with sustained rate of over 200-2 20. 2 doses of adenosine did not completely break his rhythm. He then had Cardizem bolus which resolved the tachycardia to a rate of 100 or so. His chest x-ray showed some pulmonary edema and did this CTA. CTA of the abdomen showed dilated liver and bile ducts with small stones throughout. His bilirubin was 6.1 and he had elevated transaminases. Lactic acid was 7. An ERCP was suggested and therefore he was transferred to [facility] in [place]. Mr. Manjarrez reports no recent abdominal pain. He states overall he is doing pretty good but has had some gas in his abdomen which does cause a little discomfort. But he states he is eating good and his bowels are moving well. He denies any constipation. He denies any fever or chills. He denies any shortness of breath or orthopnea. He denies any chest pain or palpitations. He states overall he is been more active and is doing well. His ECOG is 1. Past Medical History: Benign prostatic hypertorphy Diabetes type II Gastroesophageal reflux disease Hyperlipidemia Hypertension Melanoma Past Surgical History: Laminectomy Flu vaccine in 2019 Carpal tunnel surgery in 2018 Flu vaccine in 2017 Flu vaccine in 2016 Flu vaccine in 2014 Flu vaccine in 2013 Left knee surgery in 2008 PANSPHENOIDAL HYPOPHYSECTOY 1999,TURP 2008,BACK SURGERY 2000,MELANOMA EXCISION RIGHT EAR 1994,DEVIATED SEPTUM REPAIR 1994 Allergies: No Known Allergies. Medications: Acetaminophen 1 Tablet (of 500 mg) Oral PRN [employer]S Gas Relief 1 Capsule (of 125 mg) Oral daily PRN Finasteride 1 Tablet (of 5 mg) Oral daily Lovastatin 40 mg - Take 1 Tablet Oral daily MetFORMIN HCl 1 (500 mg) Tablet Oral daily Metoprolol Succinate ER 1 Tablet (of 25 mg) Tablet SR 24 HR Oral daily Probiotic Daily 1 Capsule Oral daily Quinapril HCl 1 (10 mg) Tablet Oral daily PRN Family History: Mr. Mcmillan does not know if his mother is alive. Mr. Mcmillan does not know if his father is alive. Social History: Mr. Mcmillan is and he is retired. Mr. Mcmillan no longer smokes. He has no history of drinking. He has indicated exposure to the following products: cigarettes. Mr. Mcmillan reports the following support systems: lives with spouse, significant other, family, or friends, lives in own house, supportive family/friends willing to assist with needs, and adequate transportation available for expected visits. His diet consists of regular meals. He indicates his activity level as: daily activities. Review Of Symptoms: Constitutional Denies fevers, chills, night sweats, excessive fatigue or weight loss. Allergic/Immunologic No reactions. Eyes Denies significant visual changes. No diplopia. No amaurosis. ENMT Denies changes in hearing, sore throat, mouth sores, difficulty or changes in swallowing ability, and/or sinus drainage. Endocrine Denies hot flashes or night sweats. Hematologic/Lymphatic Denies easy bruising or bleeding. The patient denies any tender or palpable lymph nodes. Respiratory Denies dyspnea on exertion, chest pain, cough or hemoptysis. Denies orthopnea. Cardiovascular Denies anginal chest pain, palpitations or orthopnea. Gastrointestinal Denies nausea, vomiting, diarrhea, GI bleeding, or constipation. Denies change in bowel habits and/or stool color, no heartburn or early satiety. More prone to constipation that diarrhea . Constipation is controlled. Genitourinary (M) Denies hematuria, dysuria, increased frequency, urgency, hesitancy or incontinence. Musculoskeletal Denies joint pain, swelling or redness. No decreased range of motion. Integumentary Denies chronic rashes, inflammation, ulcerations or skin changes. Neurologic Denies headache, blurred vision, and no areas of focal weakness or numbness. Normal gait. No sensory problems. Psychiatric Denies insomnia, depression, radha or mood swings. Vital Signs: Performed on May 26, 2020 14:20 Height - 68.00 in Weight - 200.8 lbs (HIGH) BSA - 2.05 sq.m BMI - 30.53 (HIGH) Temperature - 98.2 F (LOW) Pulse - 67 /min Respiration - 18 /min BP - 152/72 mm(hg) (HIGH) O2 Sat - 96 % Pain - 0,1 - No physically strenuous activity, but ambulatory and able to carry out light or sedentary work (e.g. office work, light house work). (ECOG) Physical Examination: Constitutional Alert, oriented, no acute distress. Skin pink, warm and dry. Head Normocephalic; atraumatic. Eyes Conjunctivae and sclerae are clear and without icterus. Pupils are reactive and equal. Neck Supple without masses or thyromegaly. No jugular venous distension. Hematologic/Lymphatic No petechiae or purpura. No tender or palpable lymph nodes in the cervical, supraclavicular area. Respiratory Lungs are clear to auscultation without rhonchi or wheezing. Cardiovascular Regular rate and rhythm of heart without murmurs,clicks, gallops or rubs. Abdomen Non-tender, non-distended, no masses, ascites. No guarding or rebound tenderness. No pulsatile masses. Back/Spine Non-tender to palpation. Extremities No visible deformities, no cyanosis, clubbing or edema. Musculoskeletal No tenderness or swelling, normal range of motion without obvious weakness. Integumentary No rashes or lesions. Neurologic No sensory or motor deficits, normal cerebellar function, normal gait. Psychiatric Alert and oriented times three. Coherent speech. Verbalizes understanding of our discussions today. Laboratory:Test performed on May 19, 2020 09:55 Sodium 135 mmol/L Potassium 4.1 mmol/L Chloride 98 mmol/L CO2 31 mmol/L Anion Gap 10.1 BUN 10 mg/dL Creatinine 0.6 mg/dL Cr Clearance (Est) 125.8700 mL/min Glucose 126 mg/dL Calcium 10.1 mg/dL Protein, Total 7.4 g/dL Albumin 4.3 g/dL Globulin 3.1 g/dL Bilirubin, Total 0.6 mg/dL ALT (SGPT) 11 U/L AST (SGOT) 20 U/L Alkaline Phosphatase 57 IU/L WBC 3.6 10 3/uL RBC 4.34 10 6/uL HGB 12.6 g/dL HCT 41.0 % MCV 94.5 fL MCH 29.0 pg MCHC 30.7 g/dL RDW 12.1 % Platelet Count 183 10 3/cmm MPV 10.1 fL Neutrophils 2.24 10 3/uL Lymphocytes 1.0 10 3/uL Monocytes 0.3 10 3/uL Eosinophils 0.1 10 3/uL Basophils 0.0 10 3/uL Neutrophil % 61.5 % Lymphocyte % 28.6 % Monocyte % 7.7 % Eosinophil % 1.9 % Basophils % 0.3 % NRBC % 0 % Impression: 1. Patient with pituitary adenoma with associated acromegaly. He has been on treatment with Sandostatin LAR following transsphenoidal hypophysectomy in 1999, thus far with no evidence of disease progression. 2. During followup he also was found to have evidence of B12 deficiency, for which he has been on B12 replacement. His other medical illnesses include: 3. Hypertension. 4. Hyperlipidemia. 5. Type II diabetes. 6. GERD. 7. Benign prostatic hypertrophy, status post TURP in September 2009. 8. Degenerative arthritis. 9. He had an episode of choledocholithiasis in June 2013. He was treated successfully with ERCP and stone extraction. 10. He is followed by Dr. Mejias for thyroid nodules. During follow-up he has continued his monthly somatostatin analog injections and he also has continued monthly B12 injections. His overall clinical status has remained stable, though last month he did have an episode of significant abdominal pain with chills. Since then he is continued to have some mild discomfort in the epigastric area. His bilirubin and liver enzymes are again mildly elevated. The clinical picture is very suspicious for recurrence of common duct stones. In addition, he does have a fairly prominent skin lesion on the left arm, appearance of which is suspicious for a squamous cell cancer. In February 2020 who presented to the ER with fever, confusion and elevated bilirubin of 6.1 and elevated transaminases. He did have abnormalities on the CT which warranted him being transferred to [facility] for ERCP. He is continued with monthly Sandostatin and B12. He is tolerated this well. He has recovered from his procedure in February and states overall he thinks he is doing much better. He continues to have a little bit of abdominal gas but is following with Dr. Soto for that. Plan: 1. Proceed with monthly Sandostatin LAR 30 mg by intramuscular injection 2. continue his monthly B12 injections. 3. Labs from May 19, 2020 were reviewed and discussed with Mr. Manjarrez in detail. White count 3.6, hemoglobin 12.6, platelets 1 83,000 ANC is 2200. Potassium 4.1 random glucose 126, bilirubin 0.6 and LFTs are normal. 4. We will plan to have him return in 3 months for follow-up with Dr. Epstein which is all earlier than his normal 6-month appointment due to the bile duct extraction in February 2020. At that time I requested that he have a somatomedin, CBC CMP. 5. He will continue monthly B12 and Sandostatin injections in the interim. 6. Mr. Byrne was instructed to contact us in the interim should questions or problems arise. 7. He states that he has did have a follow-up CT of the abdomen pelvis and thinks Dr. Soto is ordering this. He will call us if they request that we order it instead. This would be a 3 follow-up of his bile duct extraction in February 2020. Signed By: Arash Richmond-, AOCNP Yandel Epstein MD <<Signature on File>>
== END 2020-05-26 13:52 | disposition home or self-care (01) ==
LOC: ONCMED 13:55
PROVIDERS: PCP Electrodiagnostic Medicine; Visit Provider Nurse Practitioner
DX: E22.0 Acromegaly and pituitary gigantism (principal); D35.2 Benign neoplasm of pituitary gland; E53.8 Deficiency of other specified B group vitamins; I10 Essential (primary) hypertension; E78.5 Hyperlipidemia, unspecified; E11.9 Type 2 diabetes mellitus without complications; K21.9 Gastro-esophageal reflux disease without esophagitis; E04.1 Nontoxic single thyroid nodule; Z79.899 Other long term (current) drug therapy
CPT/HCPCS: 96372; 99214; J2353; J3420

== ENCOUNTER 2020-06-28 13:37 | Outpatient (CLI) | payer MEDICARE, OTHER, SELFPAY ==
[2020-06-28] MEDS: cyanocobalamin 1,000 mcg/mL SDV 1000 MCG IM (14:00)
[2020-06-28] MEDS: octreotide LAR depot 30 mg Kit IM (14:05)
== END 2020-06-28 13:38 | disposition home or self-care (01) ==
LOC: ONCMED 13:39
PROVIDERS: PCP Electrodiagnostic Medicine; Visit Provider Nurse Practitioner
DX: E22.0 Acromegaly and pituitary gigantism (principal); D35.2 Benign neoplasm of pituitary gland; D51.9 Vitamin B12 deficiency anemia, unspecified; I10 Essential (primary) hypertension; E11.9 Type 2 diabetes mellitus without complications; E78.5 Hyperlipidemia, unspecified; K21.9 Gastro-esophageal reflux disease without esophagitis; N40.0 Benign prostatic hyperplasia without lower urinary tract symptoms
CPT/HCPCS: 96372; J2353; J3420

== ENCOUNTER 2020-07-30 08:12 | Outpatient (CLI) | payer MEDICARE, OTHER, SELFPAY ==
[2020-07-30] MEDS: cyanocobalamin 1,000 mcg/mL SDV 1000 MCG IM (08:36)
[2020-07-30] MEDS: octreotide LAR depot 30 mg Kit IM (08:37)
== END 2020-07-30 08:13 | disposition home or self-care (01) ==
LOC: ONCMED 08:14
PROVIDERS: PCP Electrodiagnostic Medicine; Visit Provider Nurse Practitioner
DX: D35.2 Benign neoplasm of pituitary gland (principal); D51.9 Vitamin B12 deficiency anemia, unspecified; E22.0 Acromegaly and pituitary gigantism; E11.9 Type 2 diabetes mellitus without complications
CPT/HCPCS: 96372; J2353; J3420

== ENCOUNTER → 2020-08-09 08:25 | Outpatient (BNVA) | payer MEDICARE, OTHER, SELFPAY | PROVIDERS: PCP Electrodiagnostic Medicine; Visit Provider Urology | DX: N40.1 Benign prostatic hyperplasia with lower urinary tract symptoms (principal); N32.89 Other specified disorders of bladder | CPT/HCPCS: 81001 ==

== ENCOUNTER 2020-08-23 06:17 | Outpatient (CLI) | payer MEDICARE, OTHER, SELFPAY ==
[2020-08-23 09:16] LABS: Basophils % 0.2 %; Eosinophils # 0.1 10^3/uL (0.0-0.8); Hematocrit 41.8 % (42.0-52.0); Hemoglobin 12.8 g/dL (11.7-16.6); Lymphocytes # 1.2 10^3/uL (0.8-4.8); Lymphocytes % 29.8 %; Mean Corpuscular HGB Conc 30.6 g/dL (30.0-36.0); Mean Corpuscular Hemoglobin 27.4 pg (28.0-34.0); Mean Corpuscular Volume 89.5 fL (80-94); Monocytes # 0.2 10^3/uL (0.2-0.9); Monocytes % 5.7 %; Neutrophils # 2.47 10^3/uL (1.8-7.7); Neutrophils % 61.3 %; Nucleated Red Blood Cells % 0 %; Platelet Count 161 10^3/cmm (130-400); Red Blood Count 4.67 10^6/uL (4.1-5.3); Red Cell Distribution Width 14.7 % (12.1-15.1)
[2020-08-23 09:44] LABS: Alanine Aminotransferase 10 U/L (0-41); Albumin Level 4.2 g/dL (3.5-5.2); Alkaline Phosphatase 76 IU/L (40-130); Anion Gap 8.5 (5-19); Aspartate Amino Transferase 14 U/L (0-40); Blood Urea Nitrogen 11 mg/dL (8-23); Calcium 10.4 mg/dL (8.5-10.5); Carbon Dioxide 31 mmol/L (22-29); Chloride 100 mmol/L (98-107); Globulin 2.6 g/dL (1.3-4.6); Glucose 224 mg/dL (65-115); Osmolality Calculated 286 mOsm/kg (285-295); Potassium 4.5 mmol/L (3.5-5.1); Sodium 135 mmol/L (136-145); Total Bilirubin 0.4 mg/dL (0.15-1.2); Total Protein 6.8 g/dL (6.6-8.7)
[2020-08-29 17:43] LABS: IGF1 LC/MS 391 ng/mL (34-246); Z Score (Female) 3.1 SD (-2.0 - +2.0)
== END 2020-08-23 06:18 | disposition home or self-care (01) ==
LOC: ONCMED 06:20
PROVIDERS: PCP Electrodiagnostic Medicine; Visit Provider Nurse Practitioner
DX: D35.2 Benign neoplasm of pituitary gland (principal); E22.0 Acromegaly and pituitary gigantism; D51.9 Vitamin B12 deficiency anemia, unspecified; Z23 Encounter for immunization; I10 Essential (primary) hypertension; E78.5 Hyperlipidemia, unspecified; K21.9 Gastro-esophageal reflux disease without esophagitis; N40.0 Benign prostatic hyperplasia without lower urinary tract symptoms
CPT/HCPCS: 36415; 80053; 84305; 85025; 90471; 90686

== ENCOUNTER 2020-08-30 06:13 | Outpatient (CLI) | payer MEDICARE, OTHER, SELFPAY ==
[2020-08-30] MEDS: octreotide LAR depot 30 mg Kit IM (15:35)
[2020-08-30] MEDS: cyanocobalamin 1,000 mcg/mL SDV 1000 MCG IM (15:35)
--- NOTE | 2020-09-03 12:42 | ONC FU_ITS ---
Dr. Epstein Patient Follow-Up Note Patient: Asif Mcmillan Unit #: [id number]: 1940 Dicatated By: Yandel Epstein M.D.Date of Visit:Aug 30, 2020 Onc Med Follow-up/Prog Note Chief Complaint: Pituitary adenoma/acromegaly. 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 He also has B12 deficiency. He underwent transsphenoidal hypophysectomy for pituitary adenoma in 1999. He had associated acromegaly. He has since then been on treatment with Sandostatin analog. During this time he has continued to have mildly elevated but stable growth hormone levels. He has been stable clinically with no obvious recurrence/progression of his tumor. During followup, he did develop evidence of B12 deficiency, for which he remains on B12 replacement. His other medical illnesses include hypertension, hyperlipidemia, type 2 diabetes, GERD, and benign prostatic hypertrophy. He also is being followed by Dr. Mejias for thyroid nodules. He had smoked in the past, but he quit at least 25 years ago. On a visit in March 2013 he had reported some mild GI symptoms, which he had just attributed to a bug . His symptoms, however, persisted. He eventually presented to the emergency room in June 2013, at which point he had elevated liver enzymes and jaundice. CT showed multiple obstructing calculi in the common bile duct. He was transferred to [facility] in [place] where he underwent ERCP and stone extraction. In December 2013 he underwent left total knee arthroplasty by Dr. Miller in [place]. He underwent carpal tunnel release surgery in November or December 2017. INTERIM HISTORY: I had seen him for a follow-up visit in October 2019. At that time he was having recurrence of some mild GI symptoms and his bilirubin and liver enzymes had become mildly elevated. His CT abdomen/pelvis on 12/05/2019 showed no acute findings. On 03/07/2020 he presented to the emergency room with fever and altered mental status. His CT scans at that time showed biliary ductal dilatation with small radiodense structures in the distal common bile duct, consistent with stones, hematomas, or neoplastic process. He was transferred to [place] for hospital admission, where he underwent another ERCP/bile duct drainage procedure. He recovered uneventfully. He is seen for a follow-up visit. He has been feeling pretty good generally. He has not been as active, he says he needs more exercise. His ECOG score is 1. He has good appetite. He has not had fever. He has very occasional night sweating. He does not complain of shortness of breath, cough, or chest pain. He has no GI complaints other than some mild constipation, which he manages adequately with a laxative. Bladder function is adequate. He does follow with Dr. Rubin. He has no significant joint or bone pain. He does report having numbness going down the lateral aspect of his left leg. Medications: Acetaminophen 1 Tablet (of 500 mg) Oral PRN, CVS Gas Relief 1 Capsule (of 125 mg) Oral daily PRN, Finasteride 1 Tablet (of 5 mg) Oral daily, Lovastatin 40 mg - Take 1 Tablet Oral daily, MetFORMIN HCl 1 (500 mg) Tablet Oral daily, Metoprolol Succinate ER 1 Tablet (of 25 mg) Tablet SR 24 HR Oral daily, Probiotic Daily 1 Capsule Oral daily, Quinapril HCl 1 (10 mg) Tablet Oral daily PRN Allergies: No Known Allergies. Review of Systems: Constitutional - His energy is pretty good, though he has not been as active. Appetite is good. He has not had fever. He has just very occasional night sweating. ECOG score is 1, ENMT - No sinus congestion/drainage. No mouth sores. No sore throat or difficulty swallowing, Hematologic/Lymphatic - He does have some bruising, Respiratory - No shortness of breath. No cough. No pleuritic pain or hemoptysis, Cardiovascular - No angina pain. No palpitations, Gastrointestinal - No nausea or vomiting. No heartburn or acid reflux. He does complain of having a lot of gas. He has mild constipation, adequately managed with senna. No blood in the stool or black stools, Genitourinary (M) - No dysuria or hematuria. No urinary frequency. No urgency or incontinence, Musculoskeletal - He currently is not having any significant joint or bone pain, Integumentary - No skin rash, Neurologic - No headache or dizziness. He has some numbness going down the lateral aspect of his left leg. No other focal neurologic symptoms, Psychiatric - No anxiety or depression. No insomnia. Vital Signs: Weight is 203 pounds. Blood pressure 150/64, pulse 68, respirations 18, temp 97.6 degrees, oxygen saturation 98%. Physical Examination: Constitutional - He looks good generally, Eyes - Sclerae nonicteric. Conjunctivae clear, ENMT - No lesions noted in the oral cavity, Hematologic/Lymphatic - No cervical, clavicular, or axillary adenopathy, Respiratory - Lungs are clear with good air movement bilaterally, Cardiovascular - Heart rhythm is regular. There is a II/ systolic murmur. There is no gallop or rub noted, Abdomen - Mildly distended and tympanic. Liver and spleen are not enlarged. There is no abdominal mass or ascites noted and there is no inguinal adenopathy, Extremities - No edema, Neurologic - No focal neurologic deficits noted. Lab/Imaging: CBC shows hemoglobin 12.8 g, white blood cell count 4000, and platelet count 161,000. Comprehensive metabolic profile shows normal renal function with BUN 11 and creatinine 0.7 mg/dL. The bilirubin and liver enzymes are normal. Impression: 1. Patient with pituitary adenoma with associated acromegaly. He has been on treatment with Sandostatin LAR following transsphenoidal hypophysectomy in 1999, thus far with no evidence of disease progression. 2. During followup he also was found to have evidence of B12 deficiency, for which he has been on B12 replacement. His other medical illnesses include: 3. Hypertension. 4. Hyperlipidemia. 5. Type II diabetes. 6. GERD. 7. Benign prostatic hypertrophy, status post TURP in September 2009. 8. Degenerative arthritis. 9. He had an episode of choledocholithiasis in June 2013. He was treated successfully with ERCP and stone extraction. 10. He is followed by Dr. Mejias for thyroid nodules. During follow-up he continued his monthly somatostatin analog injections and he also continued monthly B12 injections. In February 2020 he had another episode of choledocholithiasis requiring hospitalization and another ERCP/biliary drainage procedure. He has otherwise been stable. Overall, he appears to be doing well clinically. Plan: He continues treatment with Sandostatin LAR 30 mg by intramuscular injection monthly, and he will continue his monthly B12 injections. He will be scheduled for a follow-up visit in 6 months. Signed By: Yandel Epstein M.D. <<Signature on File>>
== END 2020-08-30 06:14 | disposition home or self-care (01) ==
LOC: ONCMED 06:16
PROVIDERS: PCP Electrodiagnostic Medicine; Visit Provider Internal Medicine Medical Oncology
DX: D35.2 Benign neoplasm of pituitary gland (principal); E22.0 Acromegaly and pituitary gigantism; E53.8 Deficiency of other specified B group vitamins; I10 Essential (primary) hypertension; E78.5 Hyperlipidemia, unspecified; E11.9 Type 2 diabetes mellitus without complications; K21.9 Gastro-esophageal reflux disease without esophagitis; N40.0 Benign prostatic hyperplasia without lower urinary tract symptoms; M19.90 Unspecified osteoarthritis, unspecified site; E04.1 Nontoxic single thyroid nodule; Z87.19 Personal history of other diseases of the digestive system; Z79.899 Other long term (current) drug therapy
CPT/HCPCS: 96372; 99214; J2353; J3420

== ENCOUNTER 2020-09-30 12:42 | Outpatient (CLI) | payer MEDICARE, OTHER, SELFPAY ==
[2020-09-30] MEDS: octreotide LAR depot 30 mg Kit IM (13:15)
[2020-09-30] MEDS: cyanocobalamin 1,000 mcg/mL SDV 1000 MCG SUBCUT (13:20)
== END 2020-09-30 12:43 | disposition home or self-care (01) ==
LOC: ONCMED 12:45
PROVIDERS: PCP Electrodiagnostic Medicine; Visit Provider Internal Medicine Medical Oncology
DX: Z51.11 Encounter for antineoplastic chemotherapy (principal); D35.2 Benign neoplasm of pituitary gland; D51.9 Vitamin B12 deficiency anemia, unspecified; E22.0 Acromegaly and pituitary gigantism; E11.9 Type 2 diabetes mellitus without complications; K21.9 Gastro-esophageal reflux disease without esophagitis; N40.0 Benign prostatic hyperplasia without lower urinary tract symptoms; Z79.899 Other long term (current) drug therapy
CPT/HCPCS: 96372; J2353; J3420

== ENCOUNTER 2020-11-04 12:39 | Outpatient (CLI) | payer MEDICARE, OTHER, SELFPAY ==
[2020-11-04] MEDS: octreotide LAR depot 30 mg Kit IM (12:57)
[2020-11-04] MEDS: cyanocobalamin 1,000 mcg/mL SDV 1000 MCG IM (13:00)
== END 2020-11-04 12:40 | disposition home or self-care (01) ==
PROVIDERS: PCP Electrodiagnostic Medicine; Visit Provider Internal Medicine Medical Oncology
DX: E22.0 Acromegaly and pituitary gigantism (principal); D51.9 Vitamin B12 deficiency anemia, unspecified; D35.2 Benign neoplasm of pituitary gland; I10 Essential (primary) hypertension; E11.9 Type 2 diabetes mellitus without complications; E78.5 Hyperlipidemia, unspecified; K21.9 Gastro-esophageal reflux disease without esophagitis; N40.0 Benign prostatic hyperplasia without lower urinary tract symptoms
CPT/HCPCS: 96372; J2353; J3420

== ENCOUNTER 2020-12-06 12:43 | Outpatient (CLI) | payer MEDICARE, OTHER, SELFPAY ==
[2020-12-06] MEDS: cyanocobalamin 1,000 mcg/mL SDV 1000 MCG IM (13:10)
[2020-12-06] MEDS: octreotide LAR depot 30 mg Kit IM (13:12)
== END 2020-12-06 12:44 | disposition home or self-care (01) ==
LOC: ONCMED 12:45
PROVIDERS: PCP Electrodiagnostic Medicine; Visit Provider Internal Medicine Medical Oncology
DX: D35.2 Benign neoplasm of pituitary gland (principal); D51.9 Vitamin B12 deficiency anemia, unspecified; E22.0 Acromegaly and pituitary gigantism
CPT/HCPCS: 96372; J2353; J3420

== ENCOUNTER → 2020-12-17 08:11 | Outpatient (BNVA) | payer MEDICARE, OTHER, SELFPAY | PROVIDERS: PCP Electrodiagnostic Medicine; Visit Provider Urology | DX: Z85.51 Personal history of malignant neoplasm of bladder (principal); N42.1 Congestion and hemorrhage of prostate; N40.1 Benign prostatic hyperplasia with lower urinary tract symptoms | CPT/HCPCS: 81003 ==

== ENCOUNTER 2021-01-04 12:28 | Outpatient (CLI) | payer MEDICARE, OTHER, SELFPAY ==
[2021-01-04] MEDS: cyanocobalamin 1,000 mcg/mL SDV 1000 MCG IM (12:54)
[2021-01-04] MEDS: octreotide LAR depot 30 mg Kit IM (12:56)
== END 2021-01-04 12:29 | disposition home or self-care (01) ==
PROVIDERS: PCP Electrodiagnostic Medicine; Visit Provider Internal Medicine Medical Oncology
DX: E22.0 Acromegaly and pituitary gigantism (principal); D51.9 Vitamin B12 deficiency anemia, unspecified
CPT/HCPCS: 96372; J2353; J3420

== ENCOUNTER 2021-01-24 08:21 | Outpatient (CLI) | payer MEDICARE, OTHER, SELFPAY ==
--- NOTE | 2021-01-24 08:33 | CT_ITS ---
WS: [id number] CT ABDOMEN PELVIS TECHNIQUE: Contrast-enhanced CT of the abdomen and pelvis with coronal and sagittal reformatted image s. CLINICAL INFORMATION: RIGHT LOWER ABDOMINAL PAIN COMPARISON: CT December 05, 2019 DLP: 1133.[address] scans at [facility] use at least one of these dose optimization techniques: automat ed exposure control; mA and/or kV adjustment per patient size (includes targeted exams where dose is matched to clinical indication); or iterative reconstruction. FINDINGS: Diffuse fatty infiltration of the liver. Cholecystectomy. Pneumobilia. This is similar in appearance to the prior examinations. Mild hepatomegaly. Normal portal vein and splenic vein. Prominence of the common bile duct with pneumobilia in the proximal common bile duct. Common bile duct dilatation is im proved since March 07, 2020. Suggestion of increased attenuation debris within the proximal common bile duct. Pancreas appears normal. Normal spleen. Lung bases are well aerated. Adrenal glands are normal. Bilateral renal cortical atrop hy. No hydronephrosis. Calcified left renal exophytic cyst measuring 5 cm unchanged. Normal caliber a bdominal aorta. Heterogeneously enhancing markedly enlarged prostate is unchanged. Diffuse thickening of the bladder. Prostate measures 7.0 CM. Sigmoid diverticulosis. No evidence of acute diverticulitis. No free fluid in the pelvis. Mild spondylitic changes lumbar spine. CT/CT abdomen pelvis w con* [id number] IMPRESSION: 1. Markedly enlarged prostate with heterogeneous enhancement and bladder outle t obstruction is unchanged measuring 7 cm. Diffuse bladder wall thickening. 2. Cholecystectomy with pneumobilia. Prominent common bile duct is persistent but improved since March 07, 2020 with suggestion of increased attenuation debris . This can be further evaluated with MRCP. 3. Bilateral renal cortical atrophy. Stable calcified 5.1 cm left renal cyst. 4. Normal caliber abdominal aorta. 5. No other significant changes from previous.
[2021-01-24] MEDS: iohexol 300 mg/mL 50 mL Btl PO (08:56)
[2021-01-24 09:03] LABS: Blood Urea Nitrogen 14 mg/dL (8-23)
[2021-01-24] MEDS: iohexol 300 mg/mL 100 mL Btl IV (10:09)
== END 2021-01-24 08:22 | disposition home or self-care (01) ==
PROVIDERS: PCP Electrodiagnostic Medicine; Visit Provider Electrodiagnostic Medicine
DX: R10.31 Right lower quadrant pain (principal); K80.50 Calculus of bile duct without cholangitis or cholecystitis without obstruction; N26.1 Atrophy of kidney (terminal); N28.1 Cyst of kidney, acquired; Z90.49 Acquired absence of other specified parts of digestive tract; N40.0 Benign prostatic hyperplasia without lower urinary tract symptoms; R10.9 Unspecified abdominal pain
CPT/HCPCS: 74177; 80053; 82565; 84520; Q9967

== ENCOUNTER 2021-01-24 08:37 | Outpatient (CLI) | payer MEDICARE, OTHER, SELFPAY ==
[2021-01-24 10:17] LABS: Alanine Aminotransferase 42 U/L (0-41); Albumin Level 3.9 g/dL (3.5-5.2); Alkaline Phosphatase 103 IU/L (40-130); Anion Gap 9.3 (5-19); Aspartate Amino Transferase 16 U/L (0-40); Blood Urea Nitrogen 15 mg/dL (8-23); Calcium 10.1 mg/dL (8.5-10.5); Carbon Dioxide 32 mmol/L (22-29); Chloride 97 mmol/L (98-107); Globulin 2.7 g/dL (1.3-4.6); Glucose 162 mg/dL (65-115); Osmolality Calculated 282 mOsm/kg (285-295); Potassium 4.3 mmol/L (3.5-5.1); Sodium 134 mmol/L (136-145); Total Bilirubin 0.4 mg/dL (0.15-1.2); Total Protein 6.6 g/dL (6.6-8.7)
== END 2021-01-24 08:38 | disposition home or self-care (01) ==
LOC: LAB 08:41
PROVIDERS: PCP Electrodiagnostic Medicine; Visit Provider Electrodiagnostic Medicine
DX: R10.9 Unspecified abdominal pain (principal); K80.50 Calculus of bile duct without cholangitis or cholecystitis without obstruction
CPT/HCPCS: 80053

== ENCOUNTER 2021-02-07 12:27 | Outpatient (CLI) | payer MEDICARE, OTHER, SELFPAY ==
[2021-02-07] MEDS: cyanocobalamin 1,000 mcg/mL SDV 1000 MCG IM (12:50)
[2021-02-07] MEDS: octreotide LAR depot 30 mg Kit IM (12:54)
== END 2021-02-07 12:28 | disposition home or self-care (01) ==
PROVIDERS: PCP Electrodiagnostic Medicine; Visit Provider Internal Medicine Medical Oncology
DX: E22.0 Acromegaly and pituitary gigantism (principal); D35.2 Benign neoplasm of pituitary gland; D51.9 Vitamin B12 deficiency anemia, unspecified; I10 Essential (primary) hypertension; E11.9 Type 2 diabetes mellitus without complications; E78.5 Hyperlipidemia, unspecified; K21.9 Gastro-esophageal reflux disease without esophagitis; N40.0 Benign prostatic hyperplasia without lower urinary tract symptoms
CPT/HCPCS: 96372; J2353; J3420

== ENCOUNTER 2021-03-03 12:35 | Outpatient (CLI) | payer MEDICARE, OTHER, SELFPAY ==
[2021-03-03 13:13] LABS: Basophils % 0.3 %; Eosinophils # 0.1 10^3/uL (0.0-0.8); Eosinophils % 1.5 %; Hematocrit 42.7 % (42.0-52.0); Hemoglobin 13.3 g/dL (11.7-16.6); Lymphocytes # 1.3 10^3/uL (0.8-4.8); Lymphocytes % 32.8 %; Mean Corpuscular HGB Conc 31.1 g/dL (30.0-36.0); Mean Corpuscular Hemoglobin 28.6 pg (28.0-34.0); Mean Corpuscular Volume 91.8 fL (80-94); Mean Platelet Volume 9.9 fL (7.4-10.4); Monocytes # 0.3 10^3/uL (0.2-0.9); Neutrophils # 2.32 10^3/uL (1.8-7.7); Neutrophils % 58.1 %; Nucleated Red Blood Cells % 0 %; Platelet Count 165 10^3/cmm (130-400); Red Blood Count 4.65 10^6/uL (4.1-5.3); Red Cell Distribution Width 13.9 % (12.1-15.1)
[2021-03-03 13:35] LABS: Alanine Aminotransferase 17 U/L (0-41); Albumin Level 3.9 g/dL (3.5-5.2); Alkaline Phosphatase 95 IU/L (40-130); Anion Gap 11.5 (5-19); Aspartate Amino Transferase 13 U/L (0-40); Blood Urea Nitrogen 12 mg/dL (8-23); Carbon Dioxide 31 mmol/L (22-29); Chloride 102 mmol/L (98-107); Globulin 2.6 g/dL (1.3-4.6); Glucose 143 mg/dL (65-115); Osmolality Calculated 292 mOsm/kg (285-295); Potassium 4.5 mmol/L (3.5-5.1); Sodium 140 mmol/L (136-145); Total Bilirubin 0.4 mg/dL (0.15-1.2); Total Protein 6.5 g/dL (6.6-8.7)
--- NOTE | 2021-03-06 10:41 | ONC FU_ITS ---
Dr. Epstein Patient Follow-Up Note Patient: Asif Mcmillan Unit #: [id number]: [id number] Dicatated By: Yandel Eptsein M.D.Date of Visit:March 03, 2021 Onc Med Follow-up/Prog Note Chief Complaint: Pituitary adenoma/acromegaly. History of Present Illness: This is an 80 year-old man with acromegaly. He also has B12 deficiency. He underwent transsphenoidal hypophysectomy for pituitary adenoma in 1999. He had associated acromegaly. He has since then been on treatment with Sandostatin analog. During this time he has continued to have mildly elevated but stable growth hormone levels. He has been stable clinically with no obvious recurrence/progression of his tumor. During followup, he did develop evidence of B12 deficiency, for which he remains on B12 replacement. His other medical illnesses include hypertension, hyperlipidemia, type 2 diabetes, GERD, and benign prostatic hypertrophy. He also is being followed by Dr. Mejias for thyroid nodules. He had smoked in the past, but he quit at least 25 years ago. On a visit in March 2013 he had reported some mild GI symptoms, which he had just attributed to a bug . His symptoms, however, persisted. He eventually presented to the emergency room in June 2013, at which point he had elevated liver enzymes and jaundice. CT showed multiple obstructing calculi in the common bile duct. He was transferred to [facility] in [place] where he underwent ERCP and stone extraction. In December 2013 he underwent left total knee arthroplasty by Dr. Miller in [place]. He underwent carpal tunnel release surgery in November or December 2017. INTERIM HISTORY: I had seen him for a follow-up visit in October 2019. At that time he was having recurrence of some mild GI symptoms and his bilirubin and liver enzymes had become mildly elevated. His CT abdomen/pelvis on 12/05/2019 showed no acute findings. On 03/07/2020 he presented to the emergency room with fever and altered mental status. His CT scans at that time showed biliary ductal dilatation with small radiodense structures in the distal common bile duct, consistent with stones, hematomas, or neoplastic process. He was transferred to [place] for hospital admission, where he underwent another ERCP/bile duct drainage procedure. He recovered uneventfully. He is seen for a follow-up visit. He has been feeling pretty good, though is concerned that he may be starting another round of GI problems. Is in pain complaint has been postprandial bloating. He had seen Dr. Soto, and he is going to try stopping the Metformin. His energy is not been terribly good, but he is doing light work. ECOG score is one. He has good appetite. He has not had fever. He did have an episode of night sweating 3 or 4 days ago. He does not complain of shortness of breath or cough. He had an episode of chest pain last week. He has not been having abdominal pain or nausea, and he has not been having acid reflux symptoms. Bowel function has been adequate with a laxative. He has no complaints. He has been having pain in his right shoulder and he also has pain in his knees and in his lower back. He does not complain of headache or dizziness. He has no focal neurologic symptoms. Medications: Acetaminophen 1 Tablet (of 500 mg) Oral PRN, [employer] Gas Relief 1 Capsule (of 125 mg) Oral daily PRN, Finasteride 1 Tablet (of 5 mg) Oral daily, Lovastatin 40 mg - Take 1 Tablet Oral daily, Metoprolol Succinate ER 1 Tablet (of 25 mg) Tablet SR 24 HR Oral daily, Probiotic Daily 1 Capsule Oral daily, Quinapril HCl 1 (10 mg) Tablet Oral daily PRN Allergies: No Known Allergies. Vital Signs: Performed on March 03, 2021 14:56 Height - 68.00 in Weight - 201.6 lbs (HIGH) BSA - 2.05 sq.m BMI - 30.65 (HIGH) Temperature - 98.6 F Pulse - 65 /min Respiration - 18 /min BP - 140/63 mm(hg) O2 Sat - 96 % Pain - 0 Fatigue - 0 Physical Examination: Constitutional - He looks pretty good generally, Eyes - Sclerae nonicteric. Conjunctivae clear, ENMT - No lesions noted in the oral cavity, Hematologic/Lymphatic - No cervical, clavicular, or axillary adenopathy, Respiratory - Lungs are clear with good air movement bilaterally, Cardiovascular - Heart rhythm is regular. There is a II/ systolic murmur. There is no gallop or rub noted, Abdomen - Mildly distended and tympanic. Liver and spleen are not enlarged. There is no abdominal mass or ascites noted and there is no inguinal adenopathy, Extremities - No edema, Neurologic - No focal neurologic deficits noted. Lab/Imaging: Test performed on March 03, 2021 12:55 Sodium 140 mmol/L Potassium 4.5 mmol/L Chloride 102 mmol/L CO2 31 mmol/L Anion Gap 11.5 BUN 12 mg/dL Creatinine 0.7 mg/dL Cr Clearance (Est) 107.05 mL/min Glucose 143 mg/dL Osmolality - Calculated 292 mOsm/kg Calcium 10.0 mg/dL Protein, Total 6.5 g/dL Albumin 3.9 g/dL Globulin 2.6 g/dL Bilirubin, Total 0.4 mg/dL ALT (SGPT) 17 U/L AST (SGOT) 13 U/L Alkaline Phosphatase 95 IU/L WBC 4.0 10 3/uL RBC 4.65 10 6/uL HGB 13.3 g/dL HCT 42.7 % MCV 91.8 fL MCH 28.6 pg MCHC 31.1 g/dL RDW 13.9 % Platelet Count 165 10 3/cmm MPV 9.9 fL Neutrophils 2.32 10 3/uL Lymphocytes 1.3 10 3/uL Monocytes 0.3 10 3/uL Eosinophils 0.1 10 3/uL Basophils 0.0 10 3/uL Neutrophil % 58.1 % Lymphocyte % 32.8 % Monocyte % 7.0 % Eosinophil % 1.5 % Basophils % 0.3 % NRBC % 0 % Problem List: 1. Pituitary adenoma with associated acromegaly. He has been on treatment with Sandostatin LAR following transsphenoidal hypophysectomy in 1999, thus far with no evidence of disease progression. 2. During followup he also was found to have evidence of B12 deficiency, for which he has been on B12 replacement. 3. He has had episodes of choledocholithiasis. He was treated with ERCP and stone extraction in June 2013 and with ERCP and a biliary drainage procedure in February 2020. 4. Hypertension. 5. Hyperlipidemia. 6. Type II diabetes. 7. GERD. 8. Benign prostatic hypertrophy, status post TURP in September 2009. 9. Degenerative arthritis. 10. He is followed by Dr. Mejias for thyroid nodules. Problems Addressed with this Encounter and Plan: 1. Patient with pituitary adenoma with associated acromegaly. He has been on treatment with Sandostatin LAR following transsphenoidal hypophysectomy in 1999. During follow-up his clinical status has remained stable with no evidence of progression of the pituitary adenoma. He continues treatment with Sandostatin LAR 30 mg by intramuscular injection monthly He will be scheduled for a follow-up visit in 6 months. 2. During followup he also was found to have evidence of B12 deficiency. He continues replacement therapy with B12 1000 mcg by subcutaneous injection monthly. Signed By: Yandel Epstein M.D. <<Signature on File>>
[2021-03-07 14:52] LABS: IGF1 LC/MS 430 ng/mL (34-246); Z Score (Female) 3.4 SD (-2.0 - +2.0)
== END 2021-03-03 12:36 | disposition home or self-care (01) ==
PROVIDERS: PCP Electrodiagnostic Medicine; Visit Provider Internal Medicine Medical Oncology
DX: D35.2 Benign neoplasm of pituitary gland (principal); D51.9 Vitamin B12 deficiency anemia, unspecified; E22.0 Acromegaly and pituitary gigantism; E11.9 Type 2 diabetes mellitus without complications; E78.5 Hyperlipidemia, unspecified; K21.9 Gastro-esophageal reflux disease without esophagitis; N40.0 Benign prostatic hyperplasia without lower urinary tract symptoms; M19.90 Unspecified osteoarthritis, unspecified site; E04.2 Nontoxic multinodular goiter; Z79.818 Long term (current) use of other agents affecting estrogen receptors and estrogen levels; Z79.899 Other long term (current) drug therapy
CPT/HCPCS: 36415; 80053; 84305; 85025; 99214

== ENCOUNTER 2021-03-10 06:19 | Outpatient (CLI) | payer MEDICARE, OTHER, SELFPAY ==
[2021-03-10] MEDS: cyanocobalamin 1,000 mcg/mL SDV 1000 MCG IM (08:30)
[2021-03-10] MEDS: octreotide LAR depot 30 mg Kit IM (08:35)
== END 2021-03-10 06:20 | disposition home or self-care (01) ==
PROVIDERS: PCP Electrodiagnostic Medicine; Visit Provider Nurse Practitioner
DX: C75.1 Malignant neoplasm of pituitary gland (principal); E22.0 Acromegaly and pituitary gigantism; D51.9 Vitamin B12 deficiency anemia, unspecified; K80.50 Calculus of bile duct without cholangitis or cholecystitis without obstruction
CPT/HCPCS: 96372; J2353; J3420

== ENCOUNTER 2021-04-07 12:14 | Outpatient (CLI) | payer MEDICARE, OTHER, SELFPAY ==
[2021-04-07] MEDS: octreotide LAR depot 30 mg Kit IM (13:25)
[2021-04-07] MEDS: cyanocobalamin 1,000 mcg/mL SDV 1000 MCG IM (16:30)
== END 2021-04-07 12:15 | disposition home or self-care (01) ==
LOC: ONCMED 12:17
PROVIDERS: PCP Electrodiagnostic Medicine; Visit Provider Internal Medicine Medical Oncology
DX: D35.2 Benign neoplasm of pituitary gland (principal); E22.0 Acromegaly and pituitary gigantism; Z79.899 Other long term (current) drug therapy
CPT/HCPCS: 96372; J2353; J3420

== ENCOUNTER 2021-05-11 15:17 | Outpatient (CLI) | payer MEDICARE, OTHER, SELFPAY ==
[2021-05-11] MEDS: cyanocobalamin 1,000 mcg/mL SDV 1000 MCG IM (16:00)
[2021-05-11] MEDS: octreotide LAR depot 30 mg Kit IM (16:10)
== END 2021-05-11 15:18 | disposition home or self-care (01) ==
LOC: ONCMED 15:17
PROVIDERS: PCP Electrodiagnostic Medicine; Visit Provider Internal Medicine Medical Oncology
DX: D36.7 Benign neoplasm of other specified sites (principal); E22.0 Acromegaly and pituitary gigantism; D51.9 Vitamin B12 deficiency anemia, unspecified; Z79.899 Other long term (current) drug therapy; Z79.818 Long term (current) use of other agents affecting estrogen receptors and estrogen levels
CPT/HCPCS: 96372; J2353; J3420

== ENCOUNTER 2021-06-09 12:21 | Outpatient (CLI) | payer MEDICARE, OTHER, SELFPAY ==
[2021-06-09] MEDS: octreotide LAR depot 30 mg Kit IM (13:00)
[2021-06-09] MEDS: cyanocobalamin 1,000 mcg/mL SDV 1000 MCG IM (13:00)
== END 2021-06-09 12:22 | disposition home or self-care (01) ==
LOC: ONCMED 12:25
PROVIDERS: PCP Electrodiagnostic Medicine; Visit Provider Internal Medicine Medical Oncology
DX: E22.0 Acromegaly and pituitary gigantism (principal); D51.9 Vitamin B12 deficiency anemia, unspecified; Z79.899 Other long term (current) drug therapy
CPT/HCPCS: 96372; J2353; J3420

== ENCOUNTER 2021-07-14 12:28 | Outpatient (CLI) | payer MEDICARE, OTHER, SELFPAY ==
[2021-07-14] MEDS: cyanocobalamin 1,000 mcg/mL SDV 1000 MCG IM (13:03)
[2021-07-14] MEDS: octreotide LAR depot 30 mg Kit IM (13:05)
== END 2021-07-14 12:29 | disposition home or self-care (01) ==
PROVIDERS: PCP Electrodiagnostic Medicine; Visit Provider Internal Medicine Medical Oncology
DX: D35.2 Benign neoplasm of pituitary gland (principal); E22.0 Acromegaly and pituitary gigantism; E53.8 Deficiency of other specified B group vitamins
CPT/HCPCS: 96372; J2353; J3420

== ENCOUNTER → 2021-08-09 07:53 | Outpatient (BNVA) | payer MEDICARE, OTHER, SELFPAY | PROVIDERS: PCP Electrodiagnostic Medicine; Visit Provider Urology | DX: N40.1 Benign prostatic hyperplasia with lower urinary tract symptoms (principal); N42.1 Congestion and hemorrhage of prostate; Z85.51 Personal history of malignant neoplasm of bladder | CPT/HCPCS: 81003 ==

== ENCOUNTER 2021-08-11 12:34 | Outpatient (CLI) | payer MEDICARE, OTHER, SELFPAY ==
[2021-08-11] MEDS: cyanocobalamin 1,000 mcg/mL SDV 1000 MCG IM (12:57)
[2021-08-11] MEDS: octreotide LAR depot 30 mg Kit IM (12:58)
== END 2021-08-11 12:35 | disposition home or self-care (01) ==
PROVIDERS: PCP Electrodiagnostic Medicine; Visit Provider Internal Medicine Medical Oncology
DX: E22.0 Acromegaly and pituitary gigantism (principal); D51.9 Vitamin B12 deficiency anemia, unspecified; Z79.899 Other long term (current) drug therapy
CPT/HCPCS: 96372; J2353; J3420

== ENCOUNTER 2021-09-01 10:34 | Outpatient (CLI) | payer MEDICARE, OTHER, SELFPAY ==
[2021-09-01 11:08] LABS: Eosinophils # 0.1 10^3/uL (0.0-0.8); Eosinophils % 2.2 %; Hematocrit 45.2 % (42.0-52.0); Hemoglobin 14.4 g/dL (11.7-16.6); Lymphocytes # 1.3 10^3/uL (0.8-4.8); Lymphocytes % 24.4 %; Mean Corpuscular HGB Conc 31.9 g/dL (30.0-36.0); Mean Corpuscular Hemoglobin 29.2 pg (28.0-34.0); Mean Corpuscular Volume 91.7 fl (80-94); Mean Platelet Volume 9.6 fL (7.4-10.4); Monocytes # 0.5 10^3/uL (0.2-0.9); Monocytes % 8.4 %; Neutrophils # 3.57 10^3/uL (1.8-7.7); Neutrophils % 64.8 %; Nucleated Red Blood Cells % 0 %; Platelet Count 199 10^3/cmm (130-400); Red Blood Count 4.93 10^6/uL (4.1-5.3); Red Cell Distribution Width 13.6 % (12.1-15.1); White Blood Count 5.5 10^3/uL (4.0-10.0)
[2021-09-01 11:29] LABS: Alanine Aminotransferase 19 U/L (0-41); Albumin Level 3.9 g/dL (3.5-5.2); Alkaline Phosphatase 123 IU/L (40-130); Anion Gap 10.7 (5-19); Aspartate Amino Transferase 14 U/L (0-40); Blood Urea Nitrogen 10 mg/dL (8-23); Calcium 10.3 mg/dL (8.5-10.5); Carbon Dioxide 32 mmol/L (22-29); Chloride 98 mmol/L (98-107); Glucose 86 mg/dL (65-115); Osmolality Calculated 280 mOsm/kg (285-295); Potassium 4.7 mmol/L (3.5-5.1); Sodium 136 mmol/L (136-145); Total Bilirubin 0.4 mg/dL (0.15-1.2); Total Protein 6.9 g/dL (6.6-8.7)
[2021-09-01 14:07] LABS: Estmated Average Glucose 166; Hemoglobin A1C 7.4 % (4.0-6.0)
--- NOTE | 2021-09-03 11:04 | ONC FU_ITS ---
Dr. Epstein Patient Follow-Up Note Patient: Asif Mcmillan Unit #: [id number]: [id number] Dicatated By: Yandel Epstein M.D.Date of Visit:Sep 01, 2021 Onc Med Follow-up/Prog Note Chief Complaint: Pituitary adenoma/acromegaly. History of Present Illness: This is an 80 year-old man with acromegaly. He also has B12 deficiency. He underwent transsphenoidal hypophysectomy for pituitary adenoma in 1999. He had associated acromegaly. He has since then been on treatment with Sandostatin analog. During this time he has continued to have mildly elevated but stable growth hormone levels. He has been stable clinically with no obvious recurrence/progression of his tumor. During followup, he did develop evidence of B12 deficiency, for which he remains on B12 replacement. His other medical illnesses include hypertension, hyperlipidemia, type 2 diabetes, GERD, and benign prostatic hypertrophy. He also is being followed by Dr. Mejias for thyroid nodules. He had smoked in the past, but he quit at least 25 years ago. On a visit in March 2013 he had reported some mild GI symptoms, which he had just attributed to a bug . His symptoms, however, persisted. He eventually presented to the emergency room in June 2013, at which point he had elevated liver enzymes and jaundice. CT showed multiple obstructing calculi in the common bile duct. He was transferred to [facility] in [place] where he underwent ERCP and stone extraction. In December 2013 he underwent left total knee arthroplasty by Dr. Miller in [place]. He underwent carpal tunnel release surgery in November or December 2017. INTERIM HISTORY: I had seen him for a follow-up visit in October 2019. At that time he was having recurrence of some mild GI symptoms and his bilirubin and liver enzymes had become mildly elevated. His CT abdomen/pelvis on 12/05/2019 showed no acute findings. On 03/07/2020 he presented to the emergency room with fever and altered mental status. His CT scans at that time showed biliary ductal dilatation with small radiodense structures in the distal common bile duct, consistent with stones, hematomas, or neoplastic process. He was transferred to [place] for hospital admission, where he underwent another ERCP/bile duct drainage procedure. He recovered uneventfully. He then continued his Somatostatin and B12 injections monthly. He is seen for a follow-up visit. His main complaint is the recently have been having significant problems again with his stomach , mainly constipation and bloating. Recently he has been able to get his bowel function straightened out taking MiraLAX and prune juice, but with an added laxative as needed. He says his energy is pretty good. He is able to do light work. ECOG score is 1. He has good appetite. He has no fever or night sweats. He occasionally has cough. He does not complain of shortness of breath. He has chest pain occasionally, but that is attributable to gas. His bladder function remains adequate. He has continued to follow-up with Dr. Rubin. He currently has no significant joint or bone pain. He does not complain of headache and he has no focal neurologic symptoms. Medications: Acetaminophen 1 Tablet (of 500 mg) Oral PRN, CVS Gas Relief 1 Capsule (of 125 mg) Oral daily PRN, Lovastatin 40 mg - Take 1 Tablet Oral daily, Metoprolol Succinate ER 1 Tablet (of 25 mg) Tablet SR 24 HR Oral daily, Probiotic Daily 1 Capsule Oral daily, Quinapril HCl 1 (10 mg) Tablet Oral daily PRN Allergies: No Known Allergies. Vital Signs: Performed on Sep 01, 2021 13:28 Height - 68.00 in Weight - 207.2 lbs (HIGH) BSA - 2.07 sq.m BMI - 31.50 (HIGH) Temperature - 98.1 F (LOW) Pulse - 64 /min Respiration - 18 /min BP - 153/73 mm(hg) (HIGH) O2 Sat - 94 % (LOW) Pain - 0 Fatigue - 0 Physical Examination: Constitutional - He looks pretty good generally, Eyes - Sclerae nonicteric. Conjunctivae clear, ENMT - No lesions noted in the oral cavity, Hematologic/Lymphatic - No cervical, clavicular, or axillary adenopathy, Respiratory - Lungs are clear with good air movement bilaterally, Cardiovascular - Heart rhythm is regular. There is a II/ systolic murmur. There is no gallop or rub noted, Abdomen - Mildly distended but soft. Liver and spleen are not enlarged. There is no abdominal mass or ascites noted and there is no inguinal adenopathy, Extremities - No edema, Neurologic - No focal neurologic deficits noted. Lab/Imaging: Test performed on Sep 01, 2021 10:56 Sodium 136 mmol/L Potassium 4.7 mmol/L Chloride 98 mmol/L Est Avg Glucose (eAG) 166 mg/dL CO2 32 mmol/L Anion Gap 10.7 BUN 10 mg/dL Creatinine 0.5 mg/dL Cr Clearance (Est) 154.03 mL/min Glucose 86 mg/dL Osmolality - Calculated 280 mOsm/kg Calcium 10.3 mg/dL Protein, Total 6.9 g/dL Albumin 3.9 g/dL Globulin 3.0 g/dL Bilirubin, Total 0.4 mg/dL ALT (SGPT) 19 U/L AST (SGOT) 14 U/L Alkaline Phosphatase 123 IU/L Hemoglobin A1C % 7.4 % WBC 5.5 10 3/uL RBC 4.93 10 6/uL HGB 14.4 g/dL HCT 45.2 % MCV 91.7 fl MCH 29.2 pg MCHC 31.9 g/dL RDW 13.6 % Platelet Count 199 10 3/cmm MPV 9.6 fL Neutrophils 3.57 10 3/uL Lymphocytes 1.3 10 3/uL Monocytes 0.5 10 3/uL Eosinophils 0.1 10 3/uL Basophils 0.0 10 3/uL Neutrophil % 64.8 % Lymphocyte % 24.4 % Monocyte % 8.4 % Eosinophil % 2.2 % Basophils % 0.0 % NRBC % 0 % Problem List: 1. Pituitary adenoma with associated acromegaly. He has been on treatment with Sandostatin LAR following transsphenoidal hypophysectomy in 1999, thus far with no evidence of disease progression. 2. During followup he also was found to have evidence of B12 deficiency, for which he has been on B12 replacement. 3. He has had episodes of choledocholithiasis. He was treated with ERCP and stone extraction in June 2013 and with ERCP and a biliary drainage procedure in February 2020. 4. Hypertension. 5. Hyperlipidemia. 6. Type II diabetes. 7. GERD. 8. Benign prostatic hypertrophy, status post TURP in September 2009. 9. Degenerative arthritis. 10. He is followed by Dr. Mejias for thyroid nodules. Problems Addressed with this Encounter and Plan: 1. Patient with pituitary adenoma with associated acromegaly. He has been on treatment with Sandostatin LAR following transsphenoidal hypophysectomy in 1999. During follow-up his clinical status has remained stable with no evidence of progression of the pituitary adenoma. He continues treatment with Sandostatin LAR 30 mg by intramuscular injection monthly. He will be scheduled for a follow-up visit in 6 months. 2. During followup he also was found to have evidence of B12 deficiency. He continues replacement therapy with B12 1000 mcg by subcutaneous injection monthly. Signed By: Yandel Epstein M.D. <<Signature on File>>
[2021-09-05 15:47] LABS: IGF1 LC/MS 468 ng/mL (34-246); Z Score (Male) 3.6 SD (-2.0 - +2.0)
== END 2021-09-01 10:35 | disposition home or self-care (01) ==
LOC: ONCMED 10:36
PROVIDERS: PCP Electrodiagnostic Medicine; Visit Provider Internal Medicine Medical Oncology
DX: D35.2 Benign neoplasm of pituitary gland (principal); E22.0 Acromegaly and pituitary gigantism; D51.9 Vitamin B12 deficiency anemia, unspecified; K80.50 Calculus of bile duct without cholangitis or cholecystitis without obstruction; I10 Essential (primary) hypertension; E78.5 Hyperlipidemia, unspecified; E11.9 Type 2 diabetes mellitus without complications; K21.9 Gastro-esophageal reflux disease without esophagitis; N40.0 Benign prostatic hyperplasia without lower urinary tract symptoms; M19.90 Unspecified osteoarthritis, unspecified site; E04.2 Nontoxic multinodular goiter; Z79.818 Long term (current) use of other agents affecting estrogen receptors and estrogen levels; Z79.899 Other long term (current) drug therapy
CPT/HCPCS: 36415; 80053; 83003; 83036; 84305; 85025; 99214

== ENCOUNTER 2021-09-08 06:29 | Outpatient (CLI) | payer MEDICARE, OTHER, SELFPAY ==
[2021-09-08] MEDS: cyanocobalamin 1,000 mcg/mL SDV 1000 MCG IM (08:32)
[2021-09-08] MEDS: octreotide LAR depot 30 mg Kit IM (08:34)
== END 2021-09-08 06:30 | disposition home or self-care (01) ==
LOC: ONCMED 06:29
PROVIDERS: PCP Electrodiagnostic Medicine; Visit Provider Nurse Practitioner
DX: D35.2 Benign neoplasm of pituitary gland (principal); E22.0 Acromegaly and pituitary gigantism; D51.9 Vitamin B12 deficiency anemia, unspecified; Z79.899 Other long term (current) drug therapy
CPT/HCPCS: 96372; J2353; J3420

== ENCOUNTER 2021-10-11 08:22 | Outpatient (CLI) | payer MEDICARE, OTHER, SELFPAY ==
[2021-10-11] MEDS: octreotide LAR depot 30 mg Kit IM (08:54)
[2021-10-11] MEDS: cyanocobalamin 1,000 mcg/mL SDV 1000 MCG IM (08:54)
== END 2021-10-11 08:23 | disposition home or self-care (01) ==
LOC: ONCMED 08:24
PROVIDERS: PCP Electrodiagnostic Medicine; Visit Provider Internal Medicine Medical Oncology
DX: D35.2 Benign neoplasm of pituitary gland (principal); E53.8 Deficiency of other specified B group vitamins; E22.0 Acromegaly and pituitary gigantism
CPT/HCPCS: 96372; J2353; J3420

== ENCOUNTER 2021-10-19 07:57 | Outpatient (CLI) | payer MEDICARE, OTHER, SELFPAY ==
--- NOTE | 2021-10-19 08:07 | XRR_ITS ---
PROCEDURE INFORMATION: Exam: XR Abdomen Exam date and time: 10/19/2021 8:07 AM Age: 81 years old Clinical indication: Abdominal pain; Generalized; Prior surgery; Surgery type: Gb; Patient HX: History--abd pain all over abd; Additional info: Constipation/gastritis/dm type ii TECHNIQUE: Imaging protocol: XR of the abdomen. Views: Frontal supine view of the abdomen. 1 View. COMPARISON: CT abdomen pelvis w con* [id number] 01/24/2021 10:06 AM FINDINGS: Gastrointestinal tract: The bowel gas pattern is nonspecific. No evidence of bowel obstruction. A metallic density is seen in the right central pelvis Bones/joints: Unremarkable. XR/XR KUB [id number] IMPRESSION: No acute findings.
== END 2021-10-19 07:58 | disposition home or self-care (01) ==
LOC: RAD 08:00
PROVIDERS: PCP Electrodiagnostic Medicine; Visit Provider Electrodiagnostic Medicine
DX: I10 Essential (primary) hypertension (principal); K59.00 Constipation, unspecified; K29.70 Gastritis, unspecified, without bleeding; E11.9 Type 2 diabetes mellitus without complications
CPT/HCPCS: 74018

== ENCOUNTER 2021-11-10 12:18 | Outpatient (CLI) | payer MEDICARE, SELFPAY ==
[2021-11-10] MEDS: cyanocobalamin 1,000 mcg/mL SDV 1000 MCG IM (12:52)
[2021-11-10] MEDS: octreotide LAR depot 30 mg Kit IM (12:53)
== END 2021-11-10 12:19 | disposition home or self-care (01) ==
LOC: ONCMED 12:24
PROVIDERS: PCP Electrodiagnostic Medicine; Visit Provider Internal Medicine Medical Oncology
DX: D35.2 Benign neoplasm of pituitary gland (principal); D51.9 Vitamin B12 deficiency anemia, unspecified; E22.0 Acromegaly and pituitary gigantism; Z79.899 Other long term (current) drug therapy
CPT/HCPCS: 96372; J2353; J3420

== ENCOUNTER 2021-12-12 13:16 | Outpatient (CLI) | payer MEDICARE, SELFPAY ==
[2021-12-12] MEDS: cyanocobalamin 1,000 mcg/mL SDV 1000 MCG IM (13:35)
[2021-12-12] MEDS: octreotide LAR depot 30 mg Kit IM (13:40)
== END 2021-12-12 13:17 | disposition home or self-care (01) ==
PROVIDERS: PCP Electrodiagnostic Medicine; Visit Provider Internal Medicine Medical Oncology
DX: E22.0 Acromegaly and pituitary gigantism (principal); D51.9 Vitamin B12 deficiency anemia, unspecified; D35.2 Benign neoplasm of pituitary gland; Z79.818 Long term (current) use of other agents affecting estrogen receptors and estrogen levels
CPT/HCPCS: 96372; J2353; J3420

== ENCOUNTER → 2021-12-13 08:16 | Outpatient (BNVA) | payer MEDICARE, SELFPAY | PROVIDERS: PCP Electrodiagnostic Medicine; Visit Provider Urology | DX: N40.1 Benign prostatic hyperplasia with lower urinary tract symptoms (principal) | CPT/HCPCS: 81003 ==

== ENCOUNTER 2022-01-09 13:30 | Outpatient (CLI) | payer MEDICARE, SELFPAY ==
[2022-01-09] MEDS: octreotide LAR depot 30 mg Kit IM (13:56)
[2022-01-09] MEDS: cyanocobalamin 1,000 mcg/mL SDV 1000 MCG SUBCUT (13:56)
== END 2022-01-09 13:31 | disposition home or self-care (01) ==
PROVIDERS: PCP Electrodiagnostic Medicine; Visit Provider Internal Medicine Medical Oncology
DX: D35.2 Benign neoplasm of pituitary gland (principal); E22.0 Acromegaly and pituitary gigantism; D51.9 Vitamin B12 deficiency anemia, unspecified; Z79.818 Long term (current) use of other agents affecting estrogen receptors and estrogen levels
CPT/HCPCS: 96372; 96401; J2353; J3420

== ENCOUNTER 2022-02-09 13:05 | Outpatient (CLI) | payer MEDICARE, SELFPAY ==
[2022-02-09] MEDS: octreotide LAR depot 30 mg Kit IM (13:45)
[2022-02-09] MEDS: cyanocobalamin 1,000 mcg/mL SDV 1000 MCG IM (14:26)
== END 2022-02-09 13:06 | disposition home or self-care (01) ==
PROVIDERS: PCP Electrodiagnostic Medicine; Visit Provider Internal Medicine Medical Oncology
DX: D35.2 Benign neoplasm of pituitary gland (principal); D51.9 Vitamin B12 deficiency anemia, unspecified; E22.0 Acromegaly and pituitary gigantism; Z79.818 Long term (current) use of other agents affecting estrogen receptors and estrogen levels; Z79.899 Other long term (current) drug therapy
CPT/HCPCS: 96372; J2353; J3420

== ENCOUNTER 2022-03-13 12:34 | Oncology outpatient (recurring) (ONCR) | payer MEDICARE, SELFPAY ==
[2022-03-13] MEDS: octreotide LAR depot 30 mg Kit IM (14:23)
[2022-03-13] MEDS: cyanocobalamin 1,000 mcg/mL SDV 1000 MCG IM (14:24)
== END 2022-03-28 23:59 | disposition home or self-care (01) ==
PROVIDERS: PCP Electrodiagnostic Medicine; Referring Provider Internal Medicine Endocrinology, Diabetes & Metabolism; Visit Provider Internal Medicine Medical Oncology
DX: D35.2 Benign neoplasm of pituitary gland (principal); E22.0 Acromegaly and pituitary gigantism; D51.9 Vitamin B12 deficiency anemia, unspecified; Z79.818 Long term (current) use of other agents affecting estrogen receptors and estrogen levels; Z79.899 Other long term (current) drug therapy
CPT/HCPCS: 80053; 83003; 84305; 85025; 96372; 99214; 99999; J2353; J3420

== ENCOUNTER 2022-03-29 21:44 | Emergency (ER) | payer MEDICARE, SELFPAY ==
--- NOTE | 2022-03-29 21:48 | XRR_ITS ---
PROCEDURE INFORMATION: Exam: XR Chest Exam date and time: 03/29/2022 10:17 PM Age: 81 years old Clinical indication: Dyspnea and shortness of breath TECHNIQUE: Imaging protocol: XR of the chest. Views: 1 view. COMPARISON: 1. CT angio chest w abd pel w con 03/07/2020 11:31 PM 2. CR XR chest 1V portable [id number] 03/07/2020 8:[address] FINDINGS: Lungs: The lung bases are suboptimally assessed due to technique however the upper lungs are clear of focal consolidation. Minimal interstitial prominence in the lung bases with some interval improvement. Tiny calcified granuloma right upper lobe. Pleural spaces: Unremarkable. No pleural effusion. No pneumothorax. Heart/Mediastinum: Cardiac silhouette appears normal in size. No obvious vascular congestion. Vasculature: Tortuous thoracic aorta which is probable mildly aneurysmal as noted on most recent CT. Bones/joints: Calcific densities around the right glenohumeral joint are likely ossified bodies in the joint/bursa, unchanged. No acute osseous findings. Other findings: Single view was submitted. XR/XR chest 1V portable [id number] IMPRESSION: 1. No obvious acute consolidation. Suboptimal lung base assessment. Followup including lateral view may be obtained if clinically indicated. 2. Mild ascending aortic aneurysm. Follow-up CT with contrast may be considered if there is a clinical concern for acute aortic pathology.
[2022-03-29 22:04] VITALS: BP 150/67; PULSE 101; RESP 18; TEMP 37.1; O2SAT 92
[2022-03-29 22:42] LABS: Basophils % 0.2 %; Eosinophils % 0.3 %; Hematocrit 43.6 % (42.0-52.0); Lymphocytes # 0.3 10^3/uL (0.8-4.8); Mean Corpuscular HGB Conc 32.1 g/dL (30.0-36.0); Mean Corpuscular Hemoglobin 29.8 pg (28.0-34.0); Mean Corpuscular Volume 92.8 fl (80-94); Mean Platelet Volume 9.4 fL (7.4-10.4); Monocytes # 0.2 10^3/uL (0.2-0.9); Monocytes % 3.5 %; Neutrophils # 5.64 10^3/uL (1.8-7.7); Neutrophils % 90.8 %; Nucleated Red Blood Cells % 0 %; Platelet Count 159 10^3/cmm (130-400); Red Cell Distribution Width 13.1 % (12.1-15.1); White Blood Count 6.2 10^3/uL (4.0-10.0)
--- NOTE | 2022-03-29 22:57 | ED_ITS ---
HPI - Abdominal Pain General: Chief Complaint: Abdominal Pain Stated Complaint: ABD Pain/SOB/N/V Time Seen by Provider: 03/29/22 22:33 Source: patient Mode of arrival: ambulatory Limitations: no limitations History of Present Illness: History [id number] male Mcswelucho been having since resolved. He denies any constipation denies any vomiting states when he gets the pain he has some shortness of breath with it. Denies any cough or fever denies any chest pain. Iintermittent epigastric abdominal pain And cramping in nature and states that happened earlier in the night Associated Symptoms: Denies chills, dysuria and fever(s) Review of Systems Const: Denies: fever(s), chills, body aches or change in appetite Eyes: Denies: blurry vision or eye discomfort ENMT: Denies: throat pain or dental pain Card: Denies: chest pain Resp: Denies: dyspnea GI: Reports: abdominal pain : Denies: dysuria Musc: Denies: neck pain or back pain Skin/Breast: Denies: rash Neuro: Denies: headache(s) Psych: Denies: depression [place]/Lymph: Denies: easy bruising All/Imm: Denies: urticaria PFSH ED PFSH: Medical History Acromegaly Benign essential hypertension BPH NOS w ur obs/LUTS Degenerative arthritis Diabetes mellitus Elevated PSA GERD (gastroesophageal reflux disease) History of primary bladder cancer History of thyroid nodule Other and unspecified hyperlipidemia Pituitary adenoma, GH-producing Prostatic hemorrhage Type 2 diabetes mellitus without complications Vitamin B12 deficiency anemia, unspecified Surgical History H/O transurethral destruction of bladder lesion History of back surgery History of carpal tunnel release History of cholecystectomy History of ERCP ERCP with stone extraction for choledocholithiasis in 2012 and in 2019 History of knee replacement History of left inguinal hernia repair History of melanoma excision (1994) excision of melanoma from the right ear 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 Family History Father , AT AGE 75 Renal failure Diabetes Mother , AT AGE 63 Cancer CAD (coronary artery disease) Denies family history of Clotting disorder Dementia Hyperlipidemia Psychiatric illness Chronic kidney disease (CKD) Suicide Anesthesia complication Bleeding disorder Lung disease Hypertension Stroke Social History Smoking and tobacco status: former smoker Alcohol intake: never Adopted: No Caregiver/support person: No Lives independently: Yes Marital status: / Current occupational status: retired History of recent travel: No Current gender identity: Male Physical Exam Const: COMMON NORMALS: no acute distress, patient oriented x3 and healthy appearing HENMT: COMMON NORMALS: normocephalic and atraumatic HEAD & SCALP: normocephalic and atraumatic Eye: COMMON NORMALS: Equal, round and reactive pupils present and EOMs intact bilaterally PUPIL: Yes Equal, round and reactive pupils present Neck/C-Spine: COMMON NORMALS: full ROM and supple Chest: COMMONS NORMALS: normal inspection of the chest and normal palpation of entire chest wall Resp: COMMON NORMALS: normal respiratory effort, No retractions, No use of accessory muscles and clear to auscultation bilaterally AUSCULTATION: clear to auscultation bilaterally Cardio: COMMON NORMALS: regular rate, regular rhythm and No murmurs present (Cardio) RATE: regular rate RHYTHM: regular rhythm GI: COMMON NORMALS: Normal to inspection, nondistended, normoactive bowel sounds present, Soft to palpation, non-tender and no masses PALPATION: Yes Soft to palpation Extremity: COMMON NORMALS: normal to inspection and full ROM Neuro: COMMON NORMALS: patient oriented x3, moves all extremities and no focal motor deficits Psych: COMMON NORMALS: mental status grossly normal, Normal thought process present and cooperative THOUGHT PROCESS: Normal thought process present Skin: COMMON NORMALS: no rashes or lesions noted and no wounds GENERAL SKIN EXAM: no rashes or lesions noted Course Vital Signs: Vital signs: Vital Signs Temperature 98.7 F 03/29/22 22:04 Pulse Rate 101 H 03/29/22 22:04 Respiratory Rate 18 03/29/22 22:04 Blood Pressure 150/67 03/29/22 22:04 Pulse Oximetry 92 03/29/22 22:04 MDM - Abdominal Pain Medical Decision Making Patient presents here with choledocholithiasis with pancreatitis likely caused by stone patient's pain is improved here he does not appear to be septic he has a normal white count did speak to physician at [facility] will transfer for higher level of care as patient needs an ERCP. Lab Data : 03/29/22 22:35 03/29/22 22:35 Labs/Radiology: Radiology Impressions Chest X-Ray 03/29/22 21:48 IMPRESSION: 1. No obvious acute consolidation. Suboptimal lung base assessment. Followup including lateral view may be obtained if clinically indicated. 2. Mild ascending aortic aneurysm. Follow-up CT with contrast may be considered if there is a clinical concern for acute aortic pathology. Abdomen/Pelvis CT 03/29/22 23:27 IMPRESSION: 1. Common bile duct dilated to 16 mm with a suspected 15 mm calculus in the distal common bile duct at level of the pancreatic head, MRCP could further evaluate this. 2. Emphysematous changes. 3. Bibasilar atelectasis. 4. Left kidney cyst with thin peripheral calcification of the wall similar to prior exam appears benign, negative follow-up advised. 5. Prostate gland enlarged and nodular appearance. 6. Diverticulosis without diverticulitis. COMMENTS: Consistent with the [place] [employer]'s Incidental Findings Committee white paper (J Am Crista Radiol 2018): Any incidental renal lesion less than 1 cm or classified as too small to characterize, or any incidental cystic renal lesion characterized as simple-appearing, is likely benign. No follow-up imaging is recommended for these lesions per consensus recommendations based on imaging criteria. Laboratory Results WBC 6.2 10^3/uL (4.0-10.0) 03/29/22 22:35 RBC 4.70 10^6/uL (4.1-5.3) 03/29/22 22:35 Hgb 14.0 g/dL (11.7-16.6) 03/29/22 22:35 Hct 43.6 % (42.0-52.0) 03/29/22 22:35 MCV 92.8 fl (80-94) 03/29/22 22:35 MCH 29.8 pg (28.0-34.0) 03/29/22 22:35 MCHC 32.1 g/dL (30.0-36.0) 03/29/22 22:35 RDW 13.1 % (12.1-15.1) 03/29/22 22:35 Plt Count 159 10^3/cmm (130-400) 03/29/22 22:35 MPV 9.4 fL (7.4-10.4) 03/29/22 22:35 Neut % (Auto) 90.8 % 03/29/22 22:35 Lymph % (Auto) 5.0 % 03/29/22 22:35 [place] % (Auto) 3.5 % 03/29/22 22:35 Eos % (Auto) 0.3 % 03/29/22 22:35 Baso % (Auto) 0.2 % 03/29/22 22:35 Neut # (Auto) 5.64 10^3/uL (1.8-7.7) 03/29/22 22:35 Lymph # (Auto) 0.3 10^3/uL (0.8-4.8) L 03/29/22 22:35 [place] # (Auto) 0.2 10^3/uL (0.2-0.9) 03/29/22 22:35 Eos # (Auto) 0.0 10^3/uL (0.0-0.8) 03/29/22 22:35 Baso # (Auto) 0.0 10^3/uL (0.0-0.1) 03/29/22 22:35 Nucleated RBC % (auto) 0 % 03/29/22: Nucleated RBCs # 0.0 /100WBC 03/29/22 22:35 Sodium 137 mmol/L (136-145) 03/29/22 22:35 Potassium 4.4 mmol/L (3.5-5.1) 03/29/22 22:35 Chloride 101 mmol/L (98-107) 03/29/22 22:35 Carbon Dioxide 24 mmol/L (22-29) 03/29/22 22:35 Anion Gap 16.4 (5-19) 03/29/22 22:35 BUN 13 mg/dL (8-23) 03/29/22 22:35 Creatinine 0.7 mg/dL (0.7-1.2) 03/29/22 22:35 GFR Calculation Not Reportable 03/29/22 22:35 Glucose 177 mg/dL (65-115) H 03/29/22 22:35 Calculated Osmolality 288 mOsm/kg (285-295) 03/29/22 22:35 Calcium 10.4 mg/dL (8.5-10.5) 03/29/22 22:35 Total Bilirubin 1.7 mg/dL (0.15-1.2) H 03/29/22 22:35 AST 402 U/L (0-40) H 03/29/22 22:35 ALT 196 U/L (0-41) H 03/29/22 22:35 Alkaline Phosphatase 326 IU/L (40-130) H 03/29/22 22:35 Total Protein 7.0 g/dL (6.6-8.7) 03/29/22 22:35 Albumin 4.0 g/dL (3.5-5.2) 03/29/22 22:35 Globulin 3.0 g/dL (1.3-4.6) 03/29/22 22:35 Lipase 6357 U/L (13-60) H 03/29/22 22:35 EKG Data EKG 1: I personally reviewed and interpreted this EKG as follows: EKG interpretation date: 03/30/22 EKG interpretation time: 00:10 Interpretation: nsr hr [address] or t wave abnormalities qrs 96 qtc 371 Discharge Plan Discharge Patient Disposition: Xfer Short-Term Hosp Clinical Impression: Choledocholithiasis, Pancreatitis Condition: Stable Referrals: David Soto DO [Primary Care Provider] - Coding Level of Care Code ED Physical Chemistry Teacher for Chg Fwd Exam Comprehensive
--- NOTE | 2022-03-29 22:59 | ECG_ITS ---
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 Measurements Intervals [place] Rate: 96 P: 48 WV: 180 QRS: -15 QRSD: 96 T: 46 QT: 317 QTc: 402 Interpretive Statements SINUS RHYTHM Compared to ECG 03/07/2020 20:01:29 Junctional tachycardia no longer present Myocardial infarct finding no longer present Electronically Signed On 03-30-2022 9:33:52 CDT by Mahad Aldana M.D. [id number]
[2022-03-29 23:02] LABS: Alanine Aminotransferase 196 U/L (0-41); Alkaline Phosphatase 326 IU/L (40-130); Aspartate Amino Transferase 402 U/L (0-40); Blood Urea Nitrogen 13 mg/dL (8-23); Calcium 10.4 mg/dL (8.5-10.5); Carbon Dioxide 24 mmol/L (22-29); Chloride 101 mmol/L (98-107); Glucose 177 mg/dL (65-115); Osmolality Calculated 288 mOsm/kg (285-295); Sodium 137 mmol/L (136-145); Total Bilirubin 1.7 mg/dL (0.15-1.2)
[2022-03-29 23:17] LABS: Anion Gap 16.4 (5-19); Potassium 4.4 mmol/L (3.5-5.1)
--- NOTE | 2022-03-29 23:27 | CTR_ITS ---
PROCEDURE INFORMATION: Exam: CT Abdomen And Pelvis Without Contrast Exam date and time: 03/29/2022 11:40 PM Age: 81 years old Clinical indication: Bloating and nausea and vomiting; Prior surgery; Surgery type: Left inguinal hernia repair. Gb. Patient HX: C/O abd bloating with n/v. History of bladder cancer. ; Additional info: Abd pain TECHNIQUE: Imaging protocol: Computed tomography of the abdomen and pelvis without contrast. Radiation optimization: All CT scans at this facility use at least one of these dose optimization techniques: automated exposure control; mA and/or kV adjustment per patient size (includes targeted exams where dose is matched to clinical indication); or iterative reconstruction. COMPARISON: CT abdomen pelvis w con* [id number] 01/24/2021 10:06 AM RADIATION DOSE METRICS: Total DLP (mGy-cm): 1769.03 FINDINGS: Lungs: Emphysematous changes. Bibasilar atelectasis. Liver: Normal. No mass. Gallbladder and bile ducts: Common bile duct dilated to 16 mm with a suspected 15 mm calculus in the distal common bile duct at level of the pancreatic head, MRCP could further evaluate this. Pancreas: Normal. No ductal dilation. Spleen: Normal. No splenomegaly. Adrenal glands: Normal. No mass. Kidneys and ureters: Left kidney cyst with thin peripheral calcification of the wall similar to prior exam appears benign, negative follow-up advised. Stomach and bowel: Diverticulosis without diverticulitis. Appendix: No evidence of appendicitis. Intraperitoneal space: Unremarkable. No free air. No significant fluid collection. Vasculature: Unremarkable. No abdominal aortic aneurysm. Lymph nodes: Unremarkable. No enlarged lymph nodes. Urinary bladder: Unremarkable as visualized. Reproductive: Prostate gland enlarged and nodular appearance. Bones/joints: Unremarkable. No acute fracture. Soft tissues: Unremarkable. Left buttocks punctate pocket of air in the subcutaneous fat may be related to an injection. CT/CT abdomen pelvis wo con [id number] IMPRESSION: 1. Common bile duct dilated to 16 mm with a suspected 15 mm calculus in the distal common bile duct at level of the pancreatic head, MRCP could further evaluate this. 2. Emphysematous changes. 3. Bibasilar atelectasis. 4. Left kidney cyst with thin peripheral calcification of the wall similar to prior exam appears benign, negative follow-up advised. 5. Prostate gland enlarged and nodular appearance. 6. Diverticulosis without diverticulitis. COMMENTS: Consistent with the [place] [employer]'s Incidental Findings Committee white paper (J Am Crista Radiol 2018): Any incidental renal lesion less than 1 cm or classified as too small to characterize, or any incidental cystic renal lesion characterized as simple-appearing, is likely benign. No follow-up imaging is recommended for these lesions per consensus recommendations based on imaging criteria.
[2022-03-30 00:14] LABS: Lipase 6357 U/L (13-60)
[2022-03-30] MEDS: piperacillin-tazobactam 3.375 GM in sodium chloride 0.9% (plus) 50 ML IV (00:30)
--- NOTE | 2022-03-30 03:05 | PC.NURSE ---
report called to Courtney Cooney RN at [facility], daughter updated AWAITING EMS TRANSPORT
[2022-03-30 03:07] VITALS: BP 132/62; PULSE 75; RESP 18; O2SAT 92
--- NOTE | 2022-03-30 03:56 | PC.NURSE ---
0330 Assumed pt care from Janie ROY
[2022-03-30 05:37] VITALS: BP 142/56; PULSE 77; RESP 18; O2SAT 91
--- NOTE | 2022-03-30 05:56 | PC.NURSE ---
0315 Pt sleeping no distress noted.
--- NOTE | 2022-03-30 05:57 | PC.NURSE ---
0545 Pt sleeping and arouses easily awaiting transfer to [facility] via EMS
--- NOTE | 2022-03-30 07:15 | PC.NURSE ---
Shift report received. Pt resting in bed, eyes closed, resp even and unlabored. Care assumed.
[2022-03-30 07:48] VITALS: BP 129/64; PULSE 76; RESP 18; O2SAT 93
== END 2022-03-30 07:46 | disposition short-term general hospital (02) ==
PROVIDERS: Emergency Medicine; Emergency Provider Emergency Medicine; PCP Electrodiagnostic Medicine
DX: K80.50 Calculus of bile duct without cholangitis or cholecystitis without obstruction (principal); K85.90 Acute pancreatitis without necrosis or infection, unspecified
CPT/HCPCS: 71045; 74176; 80053; 83690; 85025; 93005; 96365; 99284; J2543

== ENCOUNTER 2022-04-14 09:27 | Oncology outpatient (recurring) (ONCR) | payer MEDICARE, SELFPAY ==
[2022-04-14] MEDS: cyanocobalamin 1,000 mcg/mL SDV 1000 MCG IM (10:16)
[2022-04-14] MEDS: octreotide LAR depot 30 mg Kit IM (10:19)
== END 2022-04-27 23:59 | disposition home or self-care (01) ==
LOC: ONCMED 09:27
PROVIDERS: PCP Electrodiagnostic Medicine; Referring Provider Internal Medicine Endocrinology, Diabetes & Metabolism; Visit Provider Internal Medicine Medical Oncology
DX: E22.0 Acromegaly and pituitary gigantism (principal); Z79.818 Long term (current) use of other agents affecting estrogen receptors and estrogen levels; Z79.899 Other long term (current) drug therapy
CPT/HCPCS: 96372; J2353; J3420

== ENCOUNTER 2022-05-15 12:00 | Oncology outpatient (recurring) (ONCR) | payer MEDICARE, SELFPAY ==
[2022-05-15 12:27] LABS: Eosinophils # 0.1 10^3/uL (0.0-0.8); Eosinophils % 2.7 %; Hematocrit 41.3 % (42.0-52.0); Hemoglobin 13.1 g/dL (11.7-16.6); Lymphocytes # 1.2 10^3/uL (0.8-4.8); Lymphocytes % 29.5 %; Mean Corpuscular HGB Conc 31.7 g/dL (30.0-36.0); Mean Corpuscular Hemoglobin 29.3 pg (28.0-34.0); Mean Corpuscular Volume 92.4 fl (80-94); Mean Platelet Volume 10.2 fL (7.4-10.4); Monocytes # 0.3 10^3/uL (0.2-0.9); Monocytes % 6.8 %; Neutrophils # 2.49 10^3/uL (1.8-7.7); Neutrophils % 60.8 %; Nucleated Red Blood Cells % 0 %; Platelet Count 146 10^3/cmm (130-400); Red Blood Count 4.47 10^6/uL (4.1-5.3); Red Cell Distribution Width 12.8 % (12.1-15.1); White Blood Count 4.1 10^3/uL (4.0-10.0)
[2022-05-15 12:48] VITALS: BP 150/71; PULSE 59; RESP 18; TEMP 35.8; O2SAT 97
[2022-05-15] MEDS: cyanocobalamin 1,000 mcg/mL SDV 1000 MCG IM (12:49)
[2022-05-15] MEDS: octreotide LAR depot 30 mg Kit IM (12:50)
[2022-05-15 12:52] LABS: Alanine Aminotransferase 8 U/L (0-41); Alkaline Phosphatase 84 IU/L (40-130); Anion Gap 11.5 (5-19); Aspartate Amino Transferase 14 U/L (0-40); Blood Urea Nitrogen 10 mg/dL (8-23); Calcium 9.9 mg/dL (8.5-10.5); Carbon Dioxide 30 mmol/L (22-29); Chloride 100 mmol/L (98-107); Globulin 2.5 g/dL (1.3-4.6); Glucose 144 mg/dL (65-115); Osmolality Calculated 286 mOsm/kg (285-295); Potassium 4.5 mmol/L (3.5-5.1); Sodium 137 mmol/L (136-145); Total Bilirubin 0.7 mg/dL (0.15-1.2); Total Protein 6.5 g/dL (6.6-8.7)
== END 2022-05-28 23:59 | disposition home or self-care (01) ==
PROVIDERS: PCP Electrodiagnostic Medicine; Referring Provider Internal Medicine Endocrinology, Diabetes & Metabolism; Visit Provider Internal Medicine Medical Oncology
DX: D51.9 Vitamin B12 deficiency anemia, unspecified (principal); D35.2 Benign neoplasm of pituitary gland; Z79.818 Long term (current) use of other agents affecting estrogen receptors and estrogen levels; Z79.899 Other long term (current) drug therapy; E22.0 Acromegaly and pituitary gigantism
CPT/HCPCS: 36415; 80053; 85025; 96372; J2353; J3420

== ENCOUNTER 2022-06-01 06:38 | Outpatient (CLI) | payer MEDICARE, SELFPAY ==
[2022-06-01 07:37] VITALS: BMI 30.4
--- NOTE | 2022-06-01 08:47 | ECG_ITS ---
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 Interpretive Statements NAME OF STUDY: LEXISCAN SESTAMIBI STRESS TEST INDICATION: [Chest Pain] Procedure: At the baseline, the blood pressure was 132/56 mmHg with a heart rate of 69bpm. The electrocardiogram showed normal sinus rhythm, normal axis with normal ST and T's. The Lexiscan was infused over a period of 20 seconds. A total of 0.4 mg of Lexiscan was infused. The stress phase was continued for a total of 5 minutes. Heart rate was at the end of stress phase was 79 bpm and a blood pressure of 130/63 mmHg. The EKG at the peak infusion revealed since normal sinus rhythm with no significant ST-T wave changes. Sestamibi was injected 20 seconds after the Lexiscan infusion. Blood pressure at the end of recovery phase was 132/63 mmHg with a heart rate of 78 bpm. Conclusion: 1. Normal EKG response to Lexiscan infusion 2. No Lexiscan induced chest pain or cardiac arrhythmia. 3. Normal blood pressure and heart rate response. 4. Sestamibi/sestamibi perfusion scan pending; see separate report. Electronically Signed On 06-19-2022 0:05:27 CDT by Steve Back M.D. [id number]
--- NOTE | 2022-06-01 08:48 | NMCV_ITS ---
NM mariia perf SPECT r/s* [id number] Asif Mcmillan Age: 81 Gender: M : 1940 Exam Date: 06/01/2022 08:45 Ordering Phys: David Soto DO Technologist: DANIELLE Paula Exam Location: [facility] Indications: Chest pain STRESS TEST Please see separate stress test report in [facility] for full findings IMAGE PROTOCOL Rest/Stress 1 Lexiscan Day Radiopharmaceutical Dose (mCi) Administration Site Administered by Rest: Tc-99m 10.6 IV DANIELLE Paula Sestamibi Stress:Tc-99m 32.6 IV DANIELLE Freeman Sestamibi Rest: 01-Jun-2022 60 Discovery 630 Stress: 01-Jun-2022 30 Discovery 630 0.4mg Lexiscan. Supine position only as patient was unable to lay prone. SPECT RESULTS Technical Quality: Good Raw Data Analysis: Corrected for breathing artifact on Rest study Image Corrections: Patient motion artifact - motion correction applied Summed Stress Score: 0 Summed Rest Score: 0 Summed Difference Score: 0 PERFUSION FINDINGS SPECT images demonstrate homogeneous tracer distribution throughout the myocardium. FUNCTIONAL RESULTS (calculated via Gated SPECT) Stress Image LV EF (%): 66 Stress EDV (mL):146 TID: 1.08 Stress ESV (mL):49 FUNCTIONAL FINDINGS: There is normal left ventricular systolic function. IMPRESSIONS 1. Normal myocardial perfusion imaging with no evidence of ischemia. 2. LV systolic function is normal Steve Back MD (Electronically Signed) Final Date: 06 June 2022 13:26 S
[2022-06-01] MEDS: regadenoson 0.4 Mg/5 ml Syringe IVP (09:25)
[2022-06-01 09:26] VITALS: BP 132/63; PULSE 78
== END 2022-06-01 06:39 | disposition home or self-care (01) ==
LOC: CDL 06:39
PROVIDERS: PCP Electrodiagnostic Medicine; Visit Provider Electrodiagnostic Medicine
DX: R07.9 Chest pain, unspecified (principal); R06.02 Shortness of breath
CPT/HCPCS: 78452; 93017; A9500; J2785

== ENCOUNTER → 2022-06-13 07:54 | Outpatient (BNVA) | payer MEDICARE, SELFPAY | PROVIDERS: PCP Electrodiagnostic Medicine; Visit Provider Urology | DX: N40.1 Benign prostatic hyperplasia with lower urinary tract symptoms (principal); Z85.51 Personal history of malignant neoplasm of bladder | CPT/HCPCS: 51741; 51798; 52000; 81003; 99213 ==

== ENCOUNTER 2022-06-16 09:50 | Oncology outpatient (recurring) (ONCR) | payer MEDICARE, SELFPAY ==
[2022-06-16] MEDS: octreotide LAR depot 30 mg Kit IM (10:21)
[2022-06-16] MEDS: cyanocobalamin 1,000 mcg/mL SDV 1000 MCG IM (10:27)
== END 2022-06-28 23:59 | disposition home or self-care (01) ==
PROVIDERS: PCP Electrodiagnostic Medicine; Referring Provider Internal Medicine Endocrinology, Diabetes & Metabolism; Visit Provider Internal Medicine Medical Oncology
DX: E22.0 Acromegaly and pituitary gigantism (principal); Z79.818 Long term (current) use of other agents affecting estrogen receptors and estrogen levels; Z79.899 Other long term (current) drug therapy
CPT/HCPCS: 96372; J2353; J3420

== ENCOUNTER 2022-07-18 15:32 | Oncology outpatient (recurring) (ONCR) | payer MEDICARE, SELFPAY ==
[2022-07-18] MEDS: octreotide LAR depot 30 mg Kit IM (15:50)
[2022-07-18] MEDS: cyanocobalamin 1,000 mcg/mL SDV 1000 MCG IM (15:51)
== END 2022-07-28 23:59 | disposition home or self-care (01) ==
LOC: ONCMED 15:32
PROVIDERS: PCP Electrodiagnostic Medicine; Visit Provider Internal Medicine Medical Oncology
DX: E22.0 Acromegaly and pituitary gigantism (principal); Z79.818 Long term (current) use of other agents affecting estrogen receptors and estrogen levels; Z79.899 Other long term (current) drug therapy
CPT/HCPCS: 96372; J2353; J3420

== ENCOUNTER 2022-08-18 09:56 | Oncology outpatient (recurring) (ONCR) | payer MEDICARE, SELFPAY ==
[2022-08-18] MEDS: cyanocobalamin 1,000 mcg/mL SDV 1000 MCG IM (10:21)
[2022-08-18] MEDS: octreotide LAR depot 30 mg Kit IM (10:26)
== END 2022-08-28 23:59 | disposition home or self-care (01) ==
LOC: ONCMED 09:57
PROVIDERS: PCP Electrodiagnostic Medicine; Visit Provider Internal Medicine Medical Oncology
DX: E22.0 Acromegaly and pituitary gigantism (principal); Z79.818 Long term (current) use of other agents affecting estrogen receptors and estrogen levels; Z79.899 Other long term (current) drug therapy
CPT/HCPCS: 96372; 96401; J2353; J3420

== ENCOUNTER 2022-09-19 11:16 | Oncology outpatient (recurring) (ONCR) | payer MEDICARE, SELFPAY ==
[2022-09-19 11:55] LABS: Basophils % 0.1 %; Eosinophils % 0.4 %; Hematocrit 40.1 % (42.0-52.0); Lymphocytes # 1.2 10^3/uL (0.8-4.8); Lymphocytes % 17.3 %; Mean Corpuscular HGB Conc 32.4 g/dL (30.0-36.0); Mean Corpuscular Hemoglobin 30.2 pg (28.0-34.0); Mean Platelet Volume 9.5 fL (7.4-10.4); Monocytes # 0.7 10^3/uL (0.2-0.9); Monocytes % 10.6 %; Neutrophils # 4.96 10^3/uL (1.8-7.7); Neutrophils % 71.2 %; Nucleated Red Blood Cells % 0 %; Platelet Count 206 10^3/cmm (130-400); Red Blood Count 4.31 10^6/uL (4.1-5.3); Red Cell Distribution Width 12.6 % (12.1-15.1)
[2022-09-19 12:13] LABS: Alanine Aminotransferase 7 U/L (0-41); Albumin Level 3.6 g/dL (3.5-5.2); Alkaline Phosphatase 73 U/L (40-130); Anion Gap 11.4 (5-19); Aspartate Amino Transferase 12 U/L (0-40); Blood Urea Nitrogen 14 mg/dL (8-23); Calcium 10.6 mg/dL (8.5-10.5); Carbon Dioxide 30 mmol/L (22-29); Chloride 99 mmol/L (98-107); Globulin 3.2 g/dL (1.3-4.6); Glucose 121 mg/dL (65-115); Osmolality Calculated 284 mOsm/kg (285-295); Potassium 4.4 mmol/L (3.5-5.1); Sodium 136 mmol/L (136-145); Total Bilirubin 0.6 mg/dL (0.15-1.2); Total Protein 6.8 g/dL (6.6-8.7)
[2022-09-19 12:36] LABS: Estmated Average Glucose 157; Hemoglobin A1C 7.1 % (4.0-6.0)
[2022-09-19] MEDS: octreotide LAR depot 30 mg Kit IM (13:04)
[2022-09-19] MEDS: cyanocobalamin 1,000 mcg/mL SDV 1000 MCG IM (13:04)
[2022-09-28 13:39] LABS: IGF1 LC/MS 307 ng/mL (34-246); Z Score (Male) 2.5 SD (-2.0 - +2.0)
== END 2022-09-27 23:59 | disposition home or self-care (01) ==
PROVIDERS: PCP Electrodiagnostic Medicine; Visit Provider Internal Medicine Medical Oncology
DX: E22.0 Acromegaly and pituitary gigantism (principal); D35.2 Benign neoplasm of pituitary gland; D51.9 Vitamin B12 deficiency anemia, unspecified; Z79.818 Long term (current) use of other agents affecting estrogen receptors and estrogen levels; Z79.899 Other long term (current) drug therapy; Z87.891 Personal history of nicotine dependence
CPT/HCPCS: 36415; 80053; 83003; 83036; 84305; 85025; 96372; 96401; 99214; J2353; J3420

== ENCOUNTER 2022-10-25 10:22 | Oncology outpatient (recurring) (ONCR) | payer MEDICARE, SELFPAY ==
[2022-10-25] MEDS: octreotide LAR depot 30 mg Kit IM (14:22)
[2022-10-25] MEDS: cyanocobalamin 1,000 mcg/mL SDV 1000 MCG IM (14:22)
== END 2022-10-28 23:59 | disposition home or self-care (01) ==
LOC: ONCMED 10:23
PROVIDERS: PCP Electrodiagnostic Medicine; Visit Provider Internal Medicine Medical Oncology
DX: E22.0 Acromegaly and pituitary gigantism (principal); D51.9 Vitamin B12 deficiency anemia, unspecified; Z79.818 Long term (current) use of other agents affecting estrogen receptors and estrogen levels
CPT/HCPCS: 96372; J2353; J3420

== ENCOUNTER → 2022-12-26 07:56 | Outpatient (BNVA) | payer MEDICARE, SELFPAY | PROVIDERS: PCP Electrodiagnostic Medicine; Visit Provider Urology | DX: N40.1 Benign prostatic hyperplasia with lower urinary tract symptoms (principal); Z85.51 Personal history of malignant neoplasm of bladder | CPT/HCPCS: 51741; 51798; 81003; 99213 ==

== ENCOUNTER → 2023-03-06 12:50 | Outpatient (BNVA) | payer MEDICARE, SELFPAY | PROVIDERS: PCP Electrodiagnostic Medicine; Visit Provider Dermatology | DX: L57.0 Actinic keratosis (principal); L56.8 Other specified acute skin changes due to ultraviolet radiation; L81.4 Other melanin hyperpigmentation; L72.0 Epidermal cyst; Z86.006 Personal history of melanoma in-situ; L57.8 Other skin changes due to chronic exposure to nonionizing radiation | CPT/HCPCS: 17000; 17003; 99213 ==

== ENCOUNTER → 2023-07-11 13:07 | Outpatient (BNVA) | payer MEDICARE, SELFPAY | PROVIDERS: PCP Electrodiagnostic Medicine; Visit Provider Dermatology | DX: L57.0 Actinic keratosis (principal); L56.8 Other specified acute skin changes due to ultraviolet radiation; L81.4 Other melanin hyperpigmentation; L98.8 Other specified disorders of the skin and subcutaneous tissue; L57.8 Other skin changes due to chronic exposure to nonionizing radiation; Z86.006 Personal history of melanoma in-situ; Z87.891 Personal history of nicotine dependence | CPT/HCPCS: 17000; 17003; 99213 ==

== ENCOUNTER → 2023-10-31 09:00 | Outpatient (BNVA) | payer MEDICARE, SELFPAY | PROVIDERS: PCP Electrodiagnostic Medicine; Visit Provider Internal Medicine | DX: D35.2 Benign neoplasm of pituitary gland (principal); E22.0 Acromegaly and pituitary gigantism; E11.9 Type 2 diabetes mellitus without complications; K80.20 Calculus of gallbladder without cholecystitis without obstruction; R79.89 Other specified abnormal findings of blood chemistry | CPT/HCPCS: 82533; 84146; 84305; 84439; 84443; 99204 ==

== ENCOUNTER 2023-12-07 07:37 | Outpatient (CLI) | payer MEDICARE, SELFPAY ==
[2023-12-07 08:21] LABS: Cortisol Random 8.21 ug/dL (2.47-19.5); Free T4 Free Thyroxine 1.28 ng/dL (0.82-1.77); Thyroid Stimulating Hormone 0.03 uIU/mL (0.27-4.20)
[2023-12-07 08:51] LABS: Prolactin 6.96 ng/mL (4.0-15.2)
[2023-12-16 17:35] LABS: IGF1 LC/MS 508 ng/mL (34-246); Z Score (Male) 3.8 SD (-2.0 - +2.0)
== END 2023-12-07 07:38 | disposition home or self-care (01) ==
LOC: LAB 07:39
PROVIDERS: PCP Electrodiagnostic Medicine; Visit Provider Internal Medicine
DX: E11.9 Type 2 diabetes mellitus without complications (principal); D35.2 Benign neoplasm of pituitary gland; E22.0 Acromegaly and pituitary gigantism
CPT/HCPCS: 36415; 82533; 84146; 84305; 84439; 84443

== ENCOUNTER → 2023-12-14 07:18 | Outpatient (BNVA) | payer MEDICARE, SELFPAY | PROVIDERS: PCP Electrodiagnostic Medicine; Visit Provider Internal Medicine | DX: D35.2 Benign neoplasm of pituitary gland (principal); E22.0 Acromegaly and pituitary gigantism; E11.9 Type 2 diabetes mellitus without complications; K80.20 Calculus of gallbladder without cholecystitis without obstruction; R79.89 Other specified abnormal findings of blood chemistry | CPT/HCPCS: 99214 ==

== ENCOUNTER 2024-01-14 07:20 | Outpatient (CLI) | payer MEDICARE, SELFPAY ==
[2024-01-20 16:36] LABS: IGF1 LC/MS 618 ng/mL (34-246); Z Score (Male) 4.4 SD (-2.0 - +2.0)
== END 2024-01-14 07:21 | disposition home or self-care (01) ==
LOC: LAB 07:22
PROVIDERS: PCP Electrodiagnostic Medicine; Visit Provider Internal Medicine
DX: D35.2 Benign neoplasm of pituitary gland (principal); E22.0 Acromegaly and pituitary gigantism; E11.9 Type 2 diabetes mellitus without complications
CPT/HCPCS: 36415; 84305

== ENCOUNTER → 2024-01-18 07:17 | Outpatient (BNVA) | payer MEDICARE, SELFPAY | PROVIDERS: PCP Electrodiagnostic Medicine; Visit Provider Internal Medicine | DX: D35.2 Benign neoplasm of pituitary gland (principal); E22.0 Acromegaly and pituitary gigantism; E11.9 Type 2 diabetes mellitus without complications; K80.20 Calculus of gallbladder without cholecystitis without obstruction; K59.00 Constipation, unspecified | CPT/HCPCS: 99214 ==

== ENCOUNTER → 2024-02-12 11:15 | Outpatient (BNVA) | payer MEDICARE, SELFPAY | PROVIDERS: PCP Electrodiagnostic Medicine; Visit Provider Nurse Practitioner Family | DX: L57.0 Actinic keratosis (principal); L56.8 Other specified acute skin changes due to ultraviolet radiation; L81.4 Other melanin hyperpigmentation; L98.8 Other specified disorders of the skin and subcutaneous tissue; L57.8 Other skin changes due to chronic exposure to nonionizing radiation; Z86.006 Personal history of melanoma in-situ | CPT/HCPCS: 17000; 99213 ==

== ENCOUNTER 2024-02-27 08:09 | Outpatient (CLI) | payer MEDICARE, SELFPAY ==
[2024-03-04 14:30] LABS: IGF1 LC/MS 553 ng/mL (34-246); Z Score (Male) 4.1 SD (-2.0 - +2.0)
== END 2024-02-27 08:10 | disposition home or self-care (01) ==
LOC: LAB 08:11
PROVIDERS: PCP Electrodiagnostic Medicine; Visit Provider Internal Medicine
DX: D35.2 Benign neoplasm of pituitary gland (principal); E22.0 Acromegaly and pituitary gigantism; E11.9 Type 2 diabetes mellitus without complications; K80.20 Calculus of gallbladder without cholecystitis without obstruction; K59.00 Constipation, unspecified
CPT/HCPCS: 36415; 84305; 99214

== ENCOUNTER 2024-03-17 06:54 | Outpatient (CLI) | payer MEDICARE, SELFPAY ==
[2024-03-23 14:49] LABS: IGF1 LC/MS 254 ng/mL (34-246)
== END 2024-03-17 06:55 | disposition home or self-care (01) ==
PROVIDERS: PCP Electrodiagnostic Medicine; Visit Provider Internal Medicine
DX: D35.2 Benign neoplasm of pituitary gland (principal); E22.0 Acromegaly and pituitary gigantism
CPT/HCPCS: 36415; 84305

== ENCOUNTER → 2024-03-20 07:30 | Outpatient (BNVA) | payer MEDICARE, SELFPAY | PROVIDERS: PCP Electrodiagnostic Medicine; Visit Provider Internal Medicine | DX: D35.2 Benign neoplasm of pituitary gland (principal); E22.0 Acromegaly and pituitary gigantism; E11.9 Type 2 diabetes mellitus without complications; K80.20 Calculus of gallbladder without cholecystitis without obstruction; K59.00 Constipation, unspecified; I10 Essential (primary) hypertension | CPT/HCPCS: 99214 ==

== ENCOUNTER 2024-03-27 07:02 | Outpatient (CLI) | payer MEDICARE, SELFPAY ==
[2024-04-02 12:54] LABS: IGF1 LC/MS 202 ng/mL (34-246); Z Score (Male) 1.5 SD (-2.0 - +2.0)
== END 2024-03-27 07:03 | disposition home or self-care (01) ==
LOC: LAB 07:04
PROVIDERS: PCP Electrodiagnostic Medicine; Visit Provider Internal Medicine
DX: D35.2 Benign neoplasm of pituitary gland (principal); E22.0 Acromegaly and pituitary gigantism
CPT/HCPCS: 36415; 84305

== ENCOUNTER 2024-04-22 07:19 | Outpatient (CLI) | payer MEDICARE, SELFPAY ==
[2024-04-22 08:05] LABS: Estmated Average Glucose 148; Hemoglobin A1C 6.8 % (4.0-6.0)
[2024-04-26 16:34] LABS: IGF1 LC/MS 150 ng/mL (34-246); Z Score (Male) 0.8 SD (-2.0 - +2.0)
== END 2024-04-22 07:20 | disposition home or self-care (01) ==
PROVIDERS: PCP Electrodiagnostic Medicine; Visit Provider Internal Medicine
DX: E11.9 Type 2 diabetes mellitus without complications (principal); D35.2 Benign neoplasm of pituitary gland; E22.0 Acromegaly and pituitary gigantism
CPT/HCPCS: 83036; 84305

== ENCOUNTER → 2024-05-02 07:24 | Outpatient (BNVA) | payer MEDICARE, SELFPAY | PROVIDERS: PCP Electrodiagnostic Medicine; Visit Provider Internal Medicine | DX: D35.2 Benign neoplasm of pituitary gland (principal); E22.0 Acromegaly and pituitary gigantism; E11.9 Type 2 diabetes mellitus without complications; K80.20 Calculus of gallbladder without cholecystitis without obstruction; K59.00 Constipation, unspecified; I10 Essential (primary) hypertension; R79.89 Other specified abnormal findings of blood chemistry | CPT/HCPCS: 99214 ==

== ENCOUNTER 2024-07-14 15:27 | Inpatient (IN) | payer MEDICARE, MEDICAID, SELFPAY ==
[2024-07-14 15:33] VITALS: BP 205/87; PULSE 66; TEMP 36.7; O2SAT 94; BMI 34.0
--- NOTE | 2024-07-14 15:49 | XRR_ITS ---
PROCEDURE INFORMATION: Exam: XR Complete Acute Abdomen Series Including Chest Exam date and time: 07/14/2024 4:21 PM Age: 83 years old Clinical indication: Abdominal pain; Generalized TECHNIQUE: Imaging protocol: Radiologic exam. Complete acute abdomen series, including 2 or more views of the abdomen and a single view chest. COMPARISON: CR XR KUB [id number] 07/02/2024 11:08 AM FINDINGS: Lungs: No focal consolidation. Pleural spaces: No evidence of pneumothorax. No evidence of effusion. Heart/Mediastinum: There is nonspecific prominent opacity in the superior mediastinum. Cardiomediastinal silhouette is otherwise within normal limits. Gastrointestinal tract: Nonobstructive bowel gas pattern. Clips noted in the right hemiabdomen and hemipelvis. Moderate stool burden. Intraperitoneal space: No gross evidence of pneumoperitoneum or pneumatosis. Bones/joints: No evidence of acute osseous abnormality. Soft tissues: Grossly unremarkable. XR/XR acute abdomen series [id number] IMPRESSION: 1. Nonobstructive bowel gas pattern. If there is ongoing clinical concern, consider correlation with CT. 2. Nonspecific prominent opacity in the superior mediastinum. Consider correlation with CT to exclude an underlying mass.
[2024-07-14 16:25] LABS: Basophils % 0.3 %; Eosinophils # 0.1 10^3/uL (0.0-0.8); Eosinophils % 1.6 %; Hematocrit 47.4 % (37-53); Lymphocytes # 1.1 10^3/uL (0.8-4.8); Lymphocytes % 28.1 %; Mean Corpuscular HGB Conc 33.1 g/dL (30-55); Mean Corpuscular Hemoglobin 31.2 pg (27-33); Mean Corpuscular Volume 94.2 fl (82-101); Mean Platelet Volume 9.3 fL (7.4-10.4); Monocytes # 0.2 10^3/uL (0.2-0.9); Monocytes % 6.3 %; Neutrophils # 2.43 10^3/uL (1.8-7.7); Neutrophils % 63.2 %; Nucleated Red Blood Cells % 0 %; Platelet Count 136 10^3/cmm (157-399); Red Blood Count 5.03 10^6/uL (3.85-5.65); Red Cell Distribution Width 12.6 % (12.1-15.1); White Blood Count 3.84 10^3/uL (3.29-11.43)
[2024-07-14 16:56] LABS: Alanine Aminotransferase 9 U/L (0-41); Albumin Level 4.1 g/dL (3.5-5.2); Alkaline Phosphatase 57 U/L (40-130); Anion Gap 11.6 (5-19); Aspartate Amino Transferase 16 U/L (0-40); Blood Urea Nitrogen 10 mg/dL (8-23); Carbon Dioxide 29 mmol/L (22-29); Chloride 102 mmol/L (98-107); Creatinine Clr Calc Pharmacy 79.4131; Globulin 2.9 g/dL (1.3-4.6); Glucose 188 mg/dL (65-115); NT Pro B Type Natriuretic Pept 902 pg/mL (0-450); Osmolality Calculated 290 mOsm/kg (285-295); Potassium 4.6 mmol/L (3.5-5.1); Sodium 138 mmol/L (136-145); Total Bilirubin 0.5 mg/dL (0.15-1.2)
[2024-07-14 17:27] LABS: Lactic Sepsis W/Reflex 2.4 mmol/L (0.5-2.2)
[2024-07-14 18:07] LABS: Reflex Lactate Order REFLEX LACTIC ORDERD
[2024-07-14 19:44] LABS: Lactic Acid level (Lactate) 1.7 mmol/L (0.5-2.2)
[2024-07-14 20:09] VITALS: PULSE 67; O2SAT 94
--- NOTE | 2024-07-14 21:31 | CTR_ITS ---
PROCEDURE INFORMATION: Exam: CT Head Without Contrast Exam date and time: 07/14/2024 10:20 PM Age: 83 years old Clinical indication: Speech disturbance; Slurred speech; Additional info: Slurred speech, right facial droop TECHNIQUE: Imaging protocol: Computed tomography of the head without contrast. Radiation optimization: All CT scans at this facility use at least one of these dose optimization techniques: automated exposure control; mA and/or kV adjustment per patient size (includes targeted exams where dose is matched to clinical indication); or iterative reconstruction. COMPARISON: CT head wo con* [id number] 03/07/2020 8:31 PM RADIATION DOSE METRICS: Total DLP (mGy-cm): 1092 FINDINGS: Brain: Sequela of mild-moderate chronic microvascular ischemic changes. Age-indeterminate hypodensity in the region of the anterior limb of the right internal capsule, new since February 2020. No evidence of intra-axial or extra-axial hemorrhage. No mass effect or midline shift. Basilar cisterns are patent. Dense atherosclerotic calcifications of the distal left vertebral artery. Cerebral ventricles: No hydrocephalus. Paranasal sinuses: The visualized paranasal sinuses are well aerated. Mastoid air cells: The visualized mastoids and middle ears are clear. Bones: Calvarium is intact. No evidence of acute fracture. Soft tissues: No gross soft tissue abnormality. CT/CT head wo con* [id number] IMPRESSION: 1. No intracranial hemorrhage. 2. Age-indeterminate hypodensity in the region of the anterior limb of the right internal capsule, new since February 2020. If there is clinical concern for acute ischemia beyond the window for neuro intervention, consider correlation with MRI.
--- NOTE | 2024-07-14 21:31 | CTR_ITS ---
PROCEDURE INFORMATION: Exam: CT Abdomen And Pelvis With Contrast Exam date and time: 07/14/2024 10:23 PM Age: 83 years old Clinical indication: Bloating; Prior surgery; Surgery date: 6+ months; Surgery type: Hernia gb; Additional info: Abd pain, swelling TECHNIQUE: Imaging protocol: Computed tomography of the abdomen and pelvis with contrast. Radiation optimization: All CT scans at this facility use at least one of these dose optimization techniques: automated exposure control; mA and/or kV adjustment per patient size (includes targeted exams where dose is matched to clinical indication); or iterative reconstruction. Contrast material: OMNI 350; Contrast volume: 100 ml; Contrast route: INTRAVENOUS (IV); COMPARISON: CT abdomen pelvis wo con [id number] 03/29/2022 11:40 PM RADIATION DOSE METRICS: Total DLP (mGy-cm): 1143 FINDINGS: Lungs: Breathing artifact limits evaluation of the lung bases. Mild basilar atelectasis. Heart: [id number]-[id number] cardiomegaly. No pericardial effusion or pericardial thickening. Liver: Atrophic left liver, stable. The liver is otherwise normal. Gallbladder and biliary ducts: Status post cholecystectomy. Pneumobilia with [id number]-[id number] intra and extrahepatic ductal dilatation, grossly stable. Questionable 9 mm calcification in the region of the ampulla (image 38, series 3). Pancreas: The pancreas is normal. Spleen: Calcified splenic granulomata are noted. The spleen is otherwise normal. Adrenal glands: Normal. No mass. Kidneys and ureters: There is normal enhancement of the kidneys. No renal calcifications are identified. There is no hydronephrosis. Stable left lower pole renal cyst with peripheral calcifications. Stomach and bowel: Moderate colonic diverticulosis without diverticulitis. There is no large or small bowel obstruction. There is no evidence of bowel wall thickening. Appendix: A normal appendix is not identified. There is no secondary evidence of acute appendicitis. Intraperitoneal space: No inflammatory changes are identified. There is no free fluid or fluid collection seen. There is no pneumoperitoneum. 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 Vasculature: Atherosclerotic calcifications of the aorta are present. No aneurysm is identified. Lymph nodes: No enlarged lymph nodes are identified. Urinary bladder: The bladder is unremarkable. Reproductive: Marked prostatomegaly. Bones/joints: No acute osseous abnormalities are seen. Soft tissues: Small right inguinal hernia containing only fat. Mild increased soft tissue density at the base of the left inguinal canal, stable. CT/CT abdomen pelvis w con* [id number] IMPRESSION: 1. Pneumobilia with [id number] intra and extrahepatic ductal dilatation, grossly stable compared to prior study. Questionable 9 mm calcification in the region of the ampulla could represent choledocholithiasis or may be artifactual. 2. Other stable findings above.
--- NOTE | 2024-07-14 21:34 | ED_ITS ---
HPI - Abdominal Pain 2 General: Chief Complaint: Abdominal Pain Stated Complaint: stomach, slurred speach Time Seen by Provider: 07/14/24 21:24 History of Present Illness: 83-year-old male presents with abdominal discomfort and bloating has been going on for a while but worsened today. Patient also reports that he feels like he is having a little bit of difficulty speaking this been going on since this afternoon. Feels like he is having a hard time getting his words out and are little slurred. Family feels like he has some right sided facial droop that is new since around 2 PM. Patient initially just presented to the ER earlier today for abdominal distention. Patient family also feels like he may be a little bit off or confused. Associated Symptoms: Reports bloating; Denies chills, dysuria, fever(s), nausea and vomiting Related Data Home Medications Medication Instructions Recorded Confirmed lovastatin 40 mg tablet 40 mg PO DAILY 12/22/19 05/02/24 metoprolol succinate 25 mg 50 mg PO BID 09/19/22 05/02/24 tablet,extended release 24 hr multivitamin 1 tab PO DAILY 12/26/22 05/02/24 zinc gluconate 30 mg tablet 30 mg PO DAILY 12/26/22 05/02/24 Previous Rx's Medication Instructions Recorded finasteride 5 mg tablet 5 mg PO QDAY #90 tabs 06/13/22 imiquimod 5 % topical cream packet 1 applic topical ONCE #24 ea 12/29/22 pegvisomant 10 mg subcutaneous 10 mg SUBCUT DAILY 30 days #30 ea 05/02/24 solution Allergies Allergy/AdvReac Type Severity Reaction Status Date / Time No Known Allergies Allergy Verified 07/14/24 15:39 Review of Systems 2 Const: Denies: fever(s) or chills Card: Denies: chest pain or palpitations Resp: Denies: dyspnea or productive cough GI: Reports: abdominal pain and bloating; Denies: nausea or vomiting : Denies: difficulty urinating or dysuria Skin/Breast: Denies: rash Neuro: Reports: confusion, Slurred speech present and other (Please see HPI) PFSH ED 2 PFSH: Medical History History of malignant melanoma Choledocholithiasis with obstruction Acromegaly History of thyroid nodule Degenerative arthritis Pituitary adenoma, GH-producing GERD (gastroesophageal reflux disease) Other and unspecified hyperlipidemia Type 2 diabetes mellitus without complications Benign essential hypertension Vitamin B12 deficiency anemia, unspecified BPH NOS w ur obs/LUTS Prostatic hemorrhage History of primary bladder cancer Elevated PSA Surgical History History of carpal tunnel release History of ERCP ERCP with stone extraction for choledocholithiasis in 2012 and in 2019 History of melanoma excision (1994) excision of melanoma from the right ear History of knee replacement History of back surgery History of left inguinal hernia repair 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 History of cholecystectomy H/O transurethral destruction of bladder lesion Family History Father , AT AGE 75 Renal failure Diabetes Mother , AT AGE 63 Cancer CAD (coronary artery disease) Denies family history of Clotting disorder Dementia Hyperlipidemia Psychiatric illness Chronic kidney disease (CKD) Suicide Anesthesia complication Bleeding disorder Lung disease Hypertension Stroke Social History Smoking and tobacco/nicotine status: never used tobacco/nicotine Alcohol intake: never Substance/Drug Use: never Adopted: No Caregiver/support person: No Lives independently: Yes Marital status: / Current occupational status: retired Current gender identity: Male Physical Exam 2 Const: COMMON NORMALS: no acute distress, patient oriented x3 and alert O RIENTATION/CONSCIOUSNESS: Yes oriented to person, Yes oriented to place and Yes oriented to time Resp: COMMON NORMALS: normal respiratory effort, No use of accessory muscles and clear to auscultation bilaterally AUSCULTATION: clear to auscultation bilaterally Cardio: COMMON NORMALS: regular rate and regular rhythm RATE: regular rate RHYTHM: regular rhythm GI: INSPECTION: Yes abdominal distension (Mild bloating) Neuro: COMMON NORMALS: patient oriented x3 SENSORIUM/ORIENTATION: Yes alert, Yes oriented to person, Yes oriented to place and Yes oriented to time SPEECH: abnormal speech Details: slurred OTHER: Mild right-sided facial droop Psych: COMMON NORMALS: mental status grossly normal, Normal thought process present and cooperative THOUGHT PROCESS: Normal thought process present Skin: COMMON NORMALS: no rashes or lesions noted GENERAL SKIN EXAM: no rashes or lesions noted Course 2 Vital Signs: Vital signs: Vital Signs Temperature 98.1 F 07/14/24 15:33 Pulse Rate 66 07/14/24 15:33 Blood Pressure 205/87 07/14/24 15:33 Pulse Oximetry 94 07/14/24 15:33 Oxygen Delivery Me thod Room Air 07/14/24 15:33 MDM - Abdominal Pain Medical Decision Making Patient's initial presentation in triage was for abdominal distention following a medication. Once he got brought back after being in the ER for approximately 5 hours they noted that he had had some mild confusion, mild difficulty getting his words out and mild slurred speech that started around 1 to 2 PM. I did obtain a head CT that shows an age-indeterminate hypodensity. Patient with a very low NIH score and based on other factors is not really a candidate for thrombolytics. Patient will be admitted to Dr. Wheeler for further inpatient evaluation including potential MRI and carotid studies. Patient was stable upon arrival back to the emergency room since he has not taken his blood pressure medications based he reports he normally takes metoprolol 50 mg twice daily. I did give him metoprolol 50 mg upon arrival to the ER. Lab Data 07/14/24 16:13 07/14/24 16:13 Labs/Radiology: Radiology Impressions Chest/Abdomen X-ray 07/14/24 15:49 IMPRESSION: 1. Nonobstructive bowel gas pattern. If there is ongoing clinical concern, consider correlation with CT. 2. Nonspecific prominent opacity in the superior mediastinum. Consider correlation with CT to exclude an underlying mass. Head CT 07/14/24 21:31 IMPRESSION: 1. No intracranial hemorrhage. 2. Age-indeterminate hypodensity in the region of the anterior limb of the right internal capsule, new since February 2020. If there is clinical concern for acute ischemia beyond the window for neuro intervention, consider correlation with MRI. Laboratory Results WBC 3.84 10^3/uL (3.29-11.43) 07/14/24 16:13 RBC 5.03 10^6/uL (3.85-5.65) 07/14/24 16:13 Hgb 15.70 g/dL (11.27-16.99) 07/14/24 16:13 Hct 47.4 % (37-53) 07/14/24 16:13 MCV 94.2 fl (82-101) 07/14/24 16:13 MCH 31.2 pg (27-33) 07/14/24 16:13 MCHC 33.1 g/dL (30-55) 07/14/24 16:13 RDW 12.6 % (12.1-15.1) 07/14/24 16:13 Plt Count 136 10^3/cmm (157-399) L 07/14/24 16:13 MPV 9.3 fL (7.4-10.4) 07/14/24 16:13 Neut % (Auto) 63.2 % 07/14/24 16:13 Lymph % (Auto) 28.1 % 07/14/24 16:13 Banks % (Auto) 6.3 % 07/14/24 16:13 Eos % (Auto) 1.6 % 07/14/24 16:13 Baso % (Auto) 0.3 % 07/14/24 16:13 Neut # (Auto) 2.43 10^3/uL (1.8-7.7) 07/14/24 16:13 Lymph # (Auto) 1.1 10^3/uL (0.8-4.8) 07/14/24 16:13 Banks # (Auto) 0.2 10^3/uL (0.2-0.9) 07/14/24 16:13 Eos # (Auto) 0.1 10^3/uL (0.0-0.8) 07/14/24 16:13 Baso # (Auto) 0.0 10^3/uL (0.0-0.1) 07/14/24 16:13 Nucleated RBC % (auto) 0 % 07/14/24 16:13 Nucleated RBCs # 0.0 /100WBC 07/14/24 16:13 Sodium 138 mmol/L (136-145) 07/14/24 16:13 Potassium 4.6 mmol/L (3.5-5.1) 07/14/24 16:13 Chloride 102 mmol/L (98-107) 07/14/24 16:13 Carbon Dioxide 29 mmol/L (22-29) 07/14/24 16:13 Anion Gap 11.6 (5-19) 07/14/24 16:13 BUN 10 mg/dL (8-23) 07/14/24 16:13 Creatinine 0.7 mg/dL (0.7-1.2) 07/14/24 16:13 GFR Calculation Not Reportable 07/14/24 16:13 Glucose 188 mg/dL (65-115) H 07/14/24 16:13 Calculated Osmolality 290 mOsm/kg (285-295) 07/14/24 16:13 Lactic Acid 2.4 mmol/L (0.5-2.2) H 07/14/24 16:13 Lactic Acid (Sepsis) 1.7 mmol/L (0.5-2.2) 07/14/24 19:01 Calcium 10.0 mg/dL (8.5-10.5) 07/14/24 16:13 Total Bilirubin 0.5 mg/dL (0.15-1.2) 07/14/24 16:13 AST 16 U/L (0-40) 07/14/24 16:13 ALT 9 U/L (0-41) 07/14/24 16:13 Alkaline Phosphatase 57 U/L (40-130) 07/14/24 16:13 C-Reactive Protein 3.0 mg/L (0.0-4.9) 07/14/24 16:13 NT-Pro-B Natriuret Pep 902 pg/mL (0-450) H 07/14/24 16:13 Total Protein 7.0 g/dL (6.6-8.7) 07/14/24 16:13 Albumin 4.1 g/dL (3.5-5.2) 07/14/24 16:13 Globulin 2.9 g/dL (1.3-4.6) 07/14/24 16:13 All radiology interpretation(s) finalized by discharge Discharge Plan Discharge Patient Disposition: Admitted As Inpatient Clinical Impression: CVA (cerebrovascular accident), Abdominal distension (gaseous) Condition: Stable Coding Level of Care Code ED Clinical Support Specialist for Todd Pop
[2024-07-14 21:39] VITALS: PULSE 69; O2SAT 93
[2024-07-14] MEDS: iohexol 350 mg/mL 500 mL Btl (per mL) IV (22:27)
[2024-07-14 22:39] VITALS: BP 176/138; PULSE 87; O2SAT 96
[2024-07-14 23:06] LABS: Bilirubin Urine Neg (Negative); Blood Urine Neg (Negative); Glucose Urine UA Norm (Normal); Ketones Urine Negative (Negative); Leukocyte Esterase Urine Negative (Negative); Nitrate Urine Negative (Negative); Protein Urine Neg (Negative); Specific Gravity, Urine 1.005 (1.005-1.030); Urine Appearance Clear (CLEAR); Urine Color Yellow (Yellow); Urobilinogen Urine Norm (Negative); pH Urine 7 (5-7)
[2024-07-14 23:09] VITALS: BP 187/101; PULSE 62; O2SAT 96
--- NOTE | 2024-07-14 23:17 | CTR_ITS ---
PROCEDURE INFORMATION: Exam: CTA Head With Contrast, Arteriography Exam date and time: 07/15/2024 12:17 AM Age: 83 years old Clinical indication: Speech disturbance; Additional info: gisell Burrows TECHNIQUE: Imaging protocol: Computed tomographic angiography of the head with contrast. Exam focused on the arteries. 3D rendering (Not supervised by radiologist): MIP and/or 3D reconstructed images were created by the technologist. Radiation optimization: All CT scans at this facility use at least one of these dose optimization techniques: automated exposure control; mA and/or kV adjustment per patient size (includes targeted exams where dose is matched to clinical indication); or iterative reconstruction. Contrast material: OMNI 350; Contrast volume: 100 ml; Contrast route: INTRAVENOUS (IV); COMPARISON: CT head wo con* [id number] 07/14/2024 10:20 PM RADIATION DOSE METRICS: Total DLP (mGy-cm): 621 FINDINGS: ANTERIOR CIRCULATION: Right internal carotid artery: Intracranial segment is patent with no significant stenosis. No aneurysm. Right middle cerebral artery: No occlusion or significant stenosis. No aneurysm. Right anterior cerebral artery: No occlusion or significant stenosis. No aneurysm. Left internal carotid artery: Intracranial segment is patent with no significant stenosis. No aneurysm. Left middle cerebral artery: No occlusion or significant stenosis. No aneurysm. Left anterior cerebral artery: No occlusion or significant stenosis. No aneurysm. POSTERIOR CIRCULATION: Right vertebral artery: No occlusion or significant stenosis. No aneurysm. Left vertebral artery: No occlusion or significant stenosis. No aneurysm. Basilar artery: No occlusion or significant stenosis. No aneurysm. Right posterior cerebral artery: No occlusion or significant stenosis. No aneurysm. Left posterior cerebral artery: No occlusion or significant stenosis. No aneurysm. Brain: See CT brain performed earlier. Cerebral ventricles: See CT brain performed earlier. Bones/joints: See CT brain performed earlier. Soft tissues: See CT brain performed earlier. PROCEDURE INFORMATION: Exam: CTA Neck With Contrast Exam date and time: 07/15/2024 12:17 AM Age: 83 years old Clinical indication: Speech disturbance; Additional info: gisell Burrows TECHNIQUE: Imaging protocol: Computed tomographic angiography of the neck with contrast. Exam focused on the cervical segments of the vasculature. 3D rendering (Not supervised by radiologist): MIP and/or 3D reconstructed images were created by the technologist. Radiation optimization: All CT scans at this facility use at least one of these dose optimization techniques: automated exposure control; mA and/or kV adjustment per patient size (includes targeted exams where dose is matched to clinical indication); or iterative reconstruction. Contrast material: OMNI 350; Contrast volume: 100 ml; Contrast route: INTRAVENOUS (IV); COMPARISON: MR cervical spin wo con* [id number] 11/27/2017 10:34 AM RADIATION DOSE METRICS: Total DLP (mGy-cm): 621 FINDINGS: Right common carotid artery: No stenosis. No dissection or occlusion. Right internal carotid artery: No stenosis of the extracranial segment. No dissection or occlusion. Right external carotid artery: No occlusion or stenosis of the origin. Left common carotid artery: No stenosis. No dissection or occlusion. Left internal carotid artery: No stenosis of the extracranial segment. No dissection or occlusion. Left external carotid artery: No occlusion or stenosis of the origin. Right vertebral artery: Diminutive right vertebral artery which terminates predominantly in right cerebellar vessels. Due to small size these are not well assessed. Left vertebral artery: No stenosis. No dissection or occlusion. 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 Impression Larynx: Suggested soft tissue thickening at the level of larynx concerning for mass. Thyroid: Enlarged thyroid gland with irregular nodular enhancement likely representing goiter. Soft tissues: Normal. No significant soft tissue swelling. Bones/joints: No acute fracture. CT/CT angio headneck* [id number] IMPRESSION: No large vessel stenosis or occlusion. IMPRESSION: 1. No evidence of stenosis or occlusion. 2. Enlarged thyroid gland with irregular nodular enhancement likely representing goiter. Recommend follow-up thyroid ultrasound if indicated. 3. Suggested soft tissue thickening at the level of larynx concerning for mass. Recommend nonemergent ENT consultation. REFERENCES: NASCET CRITERIA. The degree of stenosis in the cervical segment of the internal carotid artery is based on NASCET criteria. Normal is no stenosis. Mild is less than 50% stenosis. Moderate is 50-69% stenosis. Severe is 70% to 99% stenosis. Total occlusion is no detectable patent lumen.
--- NOTE | 2024-07-14 23:51 | ECG_ITS ---
[facility] Test Date: 2024-07-15 Pat Name: Asif Mcmillan Department: Room: 251 Gender: Male Sales Attendant: : 1940 Requested By: Tanmay Post Order Number: [id number] Chase MD: Steve Back M.D. Measurements Intervals [place] Rate: 55 P: -7 GA: 224 QRS: -33 QRSD: 97 T: 5 QT: 400 QTc: 385 Interpretive Statements SINUS BRADYCARDIA WITH FIRST DEGREE AV BLOCK PATTERN CONSISTENT WITH PULMONARY DISEASE INFERIOR MYOCARDIAL INFARCTION , PROBABLY OLD [40+ ms Q WAVE AND/OR ST/T ABNORMALITY IN II/aVF] Compared to ECG 03/30/2022 00:10:11 First degree AV block now present Myocardial infarct finding now present Sinus rhythm no longer present Electronically Signed On 07-15-2024 7:57:01 CDT by Steve Back M.D. [email or web address]
[2024-07-14] MEDS: metoprolol tartrate 50 mg Tablet PO (23:52)
[2024-07-15] VITALS (13 sets, daily range): BP systolic 155–190; BP diastolic 79–86; PULSE 57–89; RESP 18–19; TEMP 36.6–36.9; O2SAT 91–96; BMI 33.9
--- NOTE | 2024-07-15 00:01 | P.HP_ITS ---
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 Currently patient is alert to person, to place, not to time, has a right facial droop, slurring his words, at times does have word finding difficulty, but I can make out most of what he is saying, and family members at bedside help. Patient tells me that today he woke up this morning, nothing out of the ordinary, he went to have breakfast, came back home and did laundry, at about 1 PM he started noticing that he was slurring his words, he felt weak all over, due to his word slurring, and his weakness, he called his son, who currently is not present in the room, but family members tell me that his son said he Kinza was slurring his words over the phone, and ever raphael was worried and wanted to go to the hospital. Patient's daughter and niece immediately came and saw Asif, he was slurring his words, had right facial droop, word finding difficulty, he felt weak all over but no real focal weakness, no slurring words, did feel unsteady on his feet, but no falls. Patient family tells me that he arrived at the emergency room at roughly 2 PM. Patient's family tells me that they were checked in at the front, and he was in the waiting room for over 6 hours, family versed kept coming up to the front and reported to ER staff that he was slurring his words more and more. Patient was seen by ER provider by roughly 8 PM, NIH stroke scale was 2, no stroke alert was called, neurology was not notified, CT head as below CT/CT head wo con* [id number] IMPRESSION: 1. No intracranial hemorrhage. 2. Age-indeterminate hypodensity in the region of the anterior limb of the right internal capsule, new since February 2020. If there is clinical concern for acute ischemia beyond the window for neuro intervention, consider correlation with MRI -Hospitalist team was called for admission for CVA -Currently he has right facial droop, slurring of his words, intermittent word finding difficulties, 1 limb ataxia on the left, no significant focal weakness, no focal weakness [id number] abnormal on the left, NIH stroke scale by my assessment is 4 -I spoke to Dr. Galicia neurology, currently patient's NIH stroke scale 4, he is out of the tPA window -Still in the window for endovascular intervention, has received CT abdomen pelvis with IV contrast however given his NIH stroke scale, severity of his symptoms, he is still in the window for endovascular intervention, benefits outweigh risk, will proceed to CTA head and neck -CTA head and neck ordered -Discussed with family, risks and benefits of CT discussed, they voiced her study, all question answered, agreed to proceed -CTA head and neck will be performed, based on test results further interventions -For his abdominal distention, he has had a for the last 24 hours does report a bowel movement, he is not passing gas from below, denies any bloody or black stools, reports mild abdominal pain but does report abdominal distention -CT scan abdomen pelvis had not resulted, ER provider did not call me on the results -CT scan results finally resulted, reviewed as below CT/CT abdomen pelvis w con* [id number] IMPRESSION: 1. Pneumobilia with [id number] intra and extrahepatic ductal dilatation, grossly stable compared to prior study. Questionable 9 mm calcification in the region of the ampulla could represent choledocholithiasis or may be artifactual. 2. Other stable findings above. ? On examination abdomen is distended, does have minimal diffuse tenderness, diminished bowel sounds in all 4 quadrants, no guarding, no rebound, no rigidity -Does not appear jaundice, no scleral icterus -Review of his records that he has had a cholecystectomy -In 2019, he had abdominal pain, jaundice, fevers, present to the ER was transferred to [facility], had reportedly had an ERCP -He again in 2021, had similar presentation was transferred to [facility], reviewed record he had choledocholithiasis had an ERCP with stone removal -Here he has no significant transaminitis, no alk phos elevation no hyperbilirubinemia, compared to prior studies, CT scan abdomen pelvis results do seem similar to prior results, there is a questionable 9 mm calcification in the region of the ampulla which could represent choledocholithiasis, I have ordered a MRCP Review of Systems 2 Const: Denies: fever(s) or chills Card: Denies: chest pain Resp: Denies: dyspnea GI: Reports: abdominal pain and bloating; Denies: nausea, vomiting or diarrhea Medications/Allergies Home Medications Medication Instructions Recorded Confirmed Last Taken Type lovastatin 40 mg tablet 40 mg PO DAILY 12/22/19 05/02/24 Unknown History finasteride 5 mg tablet 5 mg PO QDAY #90 tabs 06/13/22 05/02/24 Unknown Rx metoprolol succinate 25 mg 50 mg PO BID 09/19/22 05/02/24 Unknown History tablet,extended release 24 hr multivitamin 1 tab PO DAILY 12/26/22 05/02/24 Unknown History zinc gluconate 30 mg tablet 30 mg PO DAILY 12/26/22 05/02/24 Unknown History imiquimod 5 % topical cream packet 1 applic topical ONCE #24 ea 12/29/22 05/02/24 Unknown Rx pegvisomant 10 mg subcutaneous 10 mg SUBCUT DAILY 30 days #30 ea 05/02/24 05/02/24 Unknown Rx solution Allergies Allergy/AdvReac Type Severity Reaction Status Date / Time No Known Allergies Allergy Verified 07/14/24 15:39 PFSH Acute 2 PFSH: Medical History History of malignant melanoma Choledocholithiasis with obstruction Acromegaly History of thyroid nodule Degenerative arthritis Pituitary adenoma, GH-producing GERD (gastroesophageal reflux disease) Other and unspecified hyperlipidemia Type 2 diabetes mellitus without complications Benign essential hypertension Vitamin B12 deficiency anemia, unspecified BPH NOS w ur obs/LUTS Prostatic hemorrhage History of primary bladder cancer Elevated PSA Surgical History History of carpal tunnel release History of ERCP ERCP with stone extraction for choledocholithiasis in 2012 and in 2019 History of melanoma excision (1994) excision of melanoma from the right ear History of knee replacement History of back surgery History of left inguinal hernia repair 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 History of cholecystectomy H/O transurethral destruction of bladder lesion Family History Father , AT AGE 75 Renal failure Diabetes Mother , AT AGE 63 Cancer CAD (coronary artery disease) Denies family history of Clotting disorder Dementia Hyperlipidemia Psychiatric illness Chronic kidney disease (CKD) Suicide Anesthesia complication Bleeding disorder Lung disease Hypertension Stroke Social History Smoking and tobacco/nicotine status: never used tobacco/nicotine Alcohol intake: never Substance/Drug Use: never Adopted: No Caregiver/support person: No Lives independently: Yes Marital status: / Current occupational status: retired Current gender identity: Male Vitals/I&O/Wt Last Vital Signs Temp 98.1 F 07/14/24 15:33 Pulse 62 07/14/24 23:09 BP 187/101 07/14/24 23:09 Pulse Ox 96 07/14/24 23:09 O2 Del Method Room Air 07/14/24 15:33 Weight last 48 hrs Weight 101.605 kg Physical Exam 2 Const: COMMON NORMALS: no acute distress ORIENTATION/CONSCIOUSNESS: Yes awake, Yes oriented to person, Yes oriented to place and Yes oriented to time HENMT: COMMON NORMALS: normocephalic Eye: COMMON NORMALS: Equal, round and reactive pupils present and EOMs intact bilaterally Neck/C-Spine: COMMON NORMALS: full ROM and no lymphadenopathy Resp: COMMON NORMALS: normal respiratory effort, No retractions, No use of accessory muscles and clear to auscultation bilaterally AUSCULTATION: clear to auscultation bilaterally Cardio: COMMON NORMALS: no JVD, regular rate, regular rhythm, S1 normal heart sound present and S2 normal heart sound present RATE: regular rate RHYTHM: regular rhythm HEART SOUNDS: S1 normal heart sound present and S2 normal heart sound present GI: OTHER: Abdomen soft, diffusely tender tender although mild, abdominal distention, no guarding, no rebound, no rigidity : COMMON NORMALS: Yes no CVA tenderness Extremity: COMMON NORMALS: no pedal edema Neuro: OTHER: Bilateral upper extremity, equal strength, bilaterally, no significant weakness His bilateral lower extremity, equal strength bilaterally no significant weakness ? Right [id number]-ol-sqqg normal ? Left duyd-rw-tghk abnormal ? Right facial droop ? Slurring of his words ? At does have word finding difficulty ? Extraocular movements intact Cranial nerve II to XII grossly intact except right facial droop as above Does have slurring of his words ? NIH stroke scale 12 No extinction Data 07/14/24 16:13 07/14/24 16:13 Micro: Microbiology 07/14/24 16:15 Blood Culture - Preliminary Blood SPECIMEN COLLECTED 07/14/24 16:13 Blood Culture - Preliminary Blood SPECIMEN COLLECTED A&P Assessment and plan (1) Acute CVA (cerebrovascular accident): (2) HTN (hypertension): (3) Diabetes mellitus: (4) Abdominal distention: Plan Acute CVA -Last known well normal 2 PM, NIH stroke scale 4, out of window for tPA, -CT head CT/CT head wo con* [id number] IMPRESSION: 1. No intracranial hemorrhage. 2. Age-indeterminate hypodensity in the region of the anterior limb of the right internal capsule, new since February 2020. If there is clinical concern for acute ischemia beyond the window for neuro intervention, consider correlation with MRI. -Still within the window for endovascular intervention, CT angiogram head and neck ordered stat Plan -CTA head and neck ordered, further invention based on results ? Cardiac echo bubble study ? Will keep n.p.o. given slurring of words, right facial droop high aspiration risk, await speech therapy eval -Aspirin 300 mg -Aspirin 81 mg -Plavix 75 mg -Atorvastatin 40 mg -Patient received metoprolol 50 mg in ER, discontinued -Allow for permissive hypertension - Treat systolic blood pressure greater than 220, diastolic greater than 120 -IV fluids -Neurochecks -Stroke scale -Aspiration precautions -MRI ordered -neurology consulted -PT OT -DNR/DNI, confirmed with patient multiple times with family members at bedside Abdominal distention, abdominal pain CT/CT abdomen pelvis w con* [id number] IMPRESSION: 1. Pneumobilia with [id number] intra and extrahepatic ductal dilatation, grossly stable compared to prior study. Questionable 9 mm calcification in the region of the ampulla could represent choledocholithiasis or may be artifactual. 2. Other stable findings above. -ERCP in 2019 -ERCP in 2021, [facility], choledocholithiasis, stone extraction -Ordered CRP, Pro-Cory, GGT, lipase -Serial abdominal exams -IV fluids -N.p.o. -MRCP ordered Type 2 diabetes mellitus, low-dose sliding scale Hypopituitarism, -Patient does not have pegvisomant with him currently currently, advised members at bedside to bring it in so we can give it to him tomorrow Attestations 2 Medical Necessity Statement*: Patient requires hospitalization, inpatient, greater than 2 midnights, for acute CVA, abdominal distention Coding Level of Care Code Critical Care >/= 30 minutes Critical care time (in minutes): 45 The high probability of a clinically significant, sudden or life threatening deterioration, as referenced in this documentation, required my full and direct attention, intervention and personal management. The critical care time shown is in addition to time spent performing any reported separately billable procedures and includes the following: [x] Data and vital sign review and interpretation [x ] Patient assessment, examination and intervention [x] Medication orders and management [x] Patient/Family updates as able [x] Care Coordination and Documentation. Diagnoses Acute CVA (cerebrovascular accident) I63.9 HTN (hypertension) I10 Diabetes mellitus E11.9 Abdominal distention R14.0
--- NOTE | 2024-07-15 00:04 | MR_ITS ---
WS: [id number] MRI/MRCP OF THE ABDOMEN WITHOUT GADOLINIUM ENHANCEMENT TECHNIQUE: Coronal T2 Fase BH, Axial T2 Fase BH, Axial T2 FS BH, Zxial 3D Miramontes BH, Axial DWI BH, 2D MRCP Radial BH, 3D MRCP (Resp), and Axial 3D Dyn BH Post sequences. CLINICAL INFORMATION: intra and extrahepatric biliary dilatation COMPARISON: CT 07/14/2024, 03/29/2022 FINDINGS: Pneumobilia. Prior cholecystectomy. Cardiomegaly. Normal spleen. Small esophageal hiatal hernia. Norm al portal vein and splenic vein. Mild intra and extrahepatic biliary ductal dilatation. A few foci of susceptibility in the common bile duct likely due to pneumobilia. No obstructing calculi. Splenic artery calcifications. Adrenal glands are normal. Pancreas appears normal. Aortic calcificati on. Celiac and SMA are patent. Bilateral renal cortical atrophy. Exophytic LEFT renal cyst measuring 4.5 cm. Small RIGHT renal cysts. MR/MR MRCP [id number] Impression: Some images limited by motion and respiratory artifact 1. No obstructing common bile duct calculi. 2. A few foci of susceptibility artifact in the common bile duct compatible wi th pneumobilia. 3. Note previous CT 03/29/2022 demonstrated a calculus in the distal common bile duct which does not appear present today. Recommend correlation with interval ERCP.
[2024-07-15 00:16] LABS: Erythrocyte Sedimentation Rate 6 mm/hr (0-10)
--- NOTE | 2024-07-15 00:20 | PC.NURSE ---
Assumed care of patient from Pippa Rn @ 2511. Report called to MS nurse by Pippa prior to turning over pt care. Per Dr Post pt to have cta resulted prior to transfer to floor.
[2024-07-15] MEDS: iohexol 350 mg/mL 500 mL Btl (per mL) IV (00:21)
--- NOTE | 2024-07-15 00:22 | PC.NURSE ---
Patients Daughter Emilia leaving for the night per pts request and would like to be kept UTD on medical findings/ conditions.
[2024-07-15 00:34] LABS: Troponin(5th) Baseline 36 ng/L (0-15)
[2024-07-15] MEDS: sodium chloride 0.9% 1,000 ML 125 ML IV ×2 (00:40→07:55)
[2024-07-15 00:43] LABS: NT Pro B Type Natriuretic Pept 1227 pg/mL (0-450)
[2024-07-15 00:44] LABS: Procalcitonin 0.04 ng/mL (0-0.5)
--- NOTE | 2024-07-15 00:51 | PC.NURSE ---
Patient updated with hold up in ER. Pt notified that the CTA is pending results before the hospitalist want us to take him to the floor. Pt verbalized understanding that he is waiting in ER until his scan is back and then will go to med surg.
[2024-07-15 00:54] LABS: Lipase 27 U/L (13-60)
--- NOTE | 2024-07-15 00:56 | PC.NURSE ---
Called Med surg with Patients daughters request for updates and the hold up in the ER waiting for cta results.
--- NOTE | 2024-07-15 02:13 | ECG_ITS ---
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 Measurements Intervals [place] Rate: 56 P: 70 AL: 252 QRS: -27 QRSD: 99 T: 18 QT: 405 QTc: 392 Interpretive Statements SINUS BRADYCARDIA WITH FIRST DEGREE AV BLOCK BORDERLINE LEFT AXIS DEVIATION [QRS AXIS < -20] Compared to ECG 07/15/2024 00:45:12 Myocardial infarct finding no longer present Electronically Signed On 07-15-2024 7:58:41 CDT by Steve Back M.D. [email or web address]
[2024-07-15] MEDS: aspirin 300 mg Supp PR (02:59)
[2024-07-15 03:16] LABS: Troponin 5 2HR 39.34 ng/L (0-15); Troponin 5 2HR Delta 3.34 ABS# (0-10)
[2024-07-15 03:27] LABS: Chol HDL Ratio 3.67 mg/dL (1.0-5.00); Cholesterol 191 mg/dL (0-200); Estmated Average Glucose 134; HDL Cholesterol 52 mg/dL (60-100); Hemoglobin A1C 6.3 % (4.0-6.0); LDL Cholesterol Calculated 100 mg/dL (50-129); LDL HDL Ratio 1.92 RATIO (0.00-3.22); Thyroid Stimulating Hormone 0.24 uIU/mL (0.27-4.20); Triglycerides 194 mg/dL (0-150)
[2024-07-15 03:32] LABS: Ferritin 42 ng/mL (30-400); Gamma Glutamyl Transferase 16 U/L (8-61)
[2024-07-15] MEDS: pantoprazole 40 mg SDV IVP (05:27)
[2024-07-15 06:02] LABS: Glucose Point of Care 101 mg/dL (70-110)
--- NOTE | 2024-07-15 06:11 | ECG_ITS ---
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 Measurements Intervals [place] Rate: 58 P: -46 NV: 197 QRS: -26 QRSD: 96 T: 29 QT: 400 QTc: 394 Interpretive Statements SINUS BRADYCARDIA BORDERLINE LEFT AXIS DEVIATION [QRS AXIS < -20] Compared to ECG 07/15/2024 02:13:15 First degree AV block no longer present Electronically Signed On 07-15-2024 7:57:59 CDT by Steve Back M.D. [email or web address]
[2024-07-15 06:22] LABS: Troponin 5 6HR 35.88 ng/L (0-15)
[2024-07-15 06:23] LABS: Troponin 5 6HR Delta -0.12 ng/L (0-12)
[2024-07-15] MEDS: aspirin 81 mg EC Tablet PO (07:57)
[2024-07-15] MEDS: clopidogrel 75 mg Tablet PO (07:57)
[2024-07-15] MEDS: enoxaparin 40 mg/0.4 mL Syringe SUBCUT (07:57)
--- NOTE | 2024-07-15 08:20 | P.CONIM_ITS ---
Providers/Reason For Consult 2 Consulting Physician/Specialty*: Simon Galicia MD neurology and epilepsy Reason for Consult*: Right internal capsule infarction Attending Physician: Tanmay Post MD Primary Care Provider: David Soto DO History of Present Illness History of Present Illness Asif Mcmillan is a 83 year old male with a history of hypertension, primary bladder cancer, prostatic hemorrhage, type 2 diabetes mellitus, B12 deficiency, pituitary adenoma growth hormone producing, acromegaly and constipation for approximately 1 month. On 07/14/2024 the patient stated that he woke up around 6 AM and was in his usual state of health. The patient stated that he went and washed clothing at the care facility where he lives. Patient stated that then he decided to go to town to have lunch. Patient stated that after eating lunch he was having trouble driving home secondary to not feeling well. When he arrived back at his facility around 1 PM on 07/14/2024 the patient was reported to display slurred speech by bystanders at the care facility and therefore the patient contacted his son who reported the patient was experiencing slurred speech. The patient's daughter arrived around 1:30 PM on 07/14/2024 and observed the patient experiencing slurred speech. The patient was brought to [facility] emergency department around 2:30 PM on 07/14/2024. Due to the patient's complaints of constipation and abdominal discomfort, it was reported that the patient's slurred speech symptoms were not immediately addressed. The patient was hospitalized. After further discussion regarding the slurred speech a noncontrast head CT was obtained on 07/14/2024 and revealed hypodense area in the right internal capsule of undetermined age but new since head CT performed in 2019. I was contacted by the admitting physician during the night of 07/14/2024. The patient was outside of the intravenous thrombolytic window and therefore no intravenous thrombolytics were administered. I requested patient undergo CT angiogram of the head and neck which was performed on 07/14/2024 and revealed no large vessel occlusion. There was report of thyroid goiter. Labs for CBC and comprehensive metabolic panel were obtained. CBC was unremarkable except for decreased platelet count of 136,000 (normal equals 157-399). Comprehensive metabolic panel revealed elevated serum glucose of 188 (normal equals 65-115). There was also troponins levels obtained which was elevated at 36 (normal equals 0-15). On labs performed 07/15/2024 revealed elevated natruretic peptide 1227 (normal equals 0-450). On 07/15/2024 the patient was lying in bed he was in no apparent distress. NIH score = 2 (secondary to mild right lower facial weakness and very minimal dysarthria/slurred speech). The patient denied being homicidal or suicidal. Drug allergies: None Current medications: Finasteride 5 mg p.o. daily Lovastatin 40 mg p.o. daily Metoprolol ER 50 mg p.o. twice daily Multivitamin 1 p.o. daily Pegvisomant 10 mg subcutaneously daily Zinc gluconate 30 mg p.o. daily Past medical history: Constipation Abdominal distention Hypertension Gallstones History of primary bladder cancer History of prostatic hemorrhage Benign prostate hypertrophy Type 2 diabetes mellitus B12 deficiency Pituitary adenoma growth hormone producing Acromegaly Habits: Unknown Family history: Unknown Review of Systems 2 General: Reports: 10 or more systems reviewed and unremarkable except in HPI and below Medications/Allergies Home Medications Medication Instructions Recorded Confirmed Last Taken Type lovastatin 40 mg tablet 40 mg PO DAILY 12/22/19 05/02/24 Unknown History finasteride 5 mg tablet 5 mg PO QDAY #90 tabs 06/13/22 05/02/24 Unknown Rx metoprolol succinate 25 mg 50 mg PO BID 09/19/22 05/02/24 Unknown History tablet,extended release 24 hr multivitamin 1 tab PO DAILY 12/26/22 05/02/24 Unknown History zinc gluconate 30 mg tablet 30 mg PO DAILY 12/26/22 05/02/24 Unknown History imiquimod 5 % topical cream packet 1 applic topical ONCE #24 ea 12/29/22 05/02/24 Unknown Rx pegvisomant 10 mg subcutaneous 10 mg SUBCUT DAILY 30 days #30 ea 05/02/24 05/02/24 Unknown Rx solution Allergies Allergy/AdvReac Type Severity Reaction Status Date / Time No Known Allergies Allergy Verified 07/14/24 15:39 Current Medications Generic Name Dose Route Start Last Admin Trade Name Freq PRN Reason Stop Dose Admin Aspirin 81 mg 07/15/24 09:00 07/15/24 07:57 Aspirin 81 Mg Ec Tablet PO 81 mg DAILY HIREN Administration Clopidogrel Bisulfate 75 mg 07/15/24 09:00 07/15/24 07:57 Clopidogrel 75 Mg Tablet PO 75 mg DAILY HIREN Administration Enoxaparin Sodium 40 mg 07/15/24 09:00 07/15/24 07:57 Enoxaparin 40 Mg/0.4 Ml Syringe SUBCUT 40 mg Q24H HIREN Administration Sodium Chloride 1,000 mls @ 125 mls/hr 07/14/24 23:45 07/15/24 07:55 Sodium Chloride 0.9% IV 125 mls/hr .Q8H HIREN Administration Insulin Human Lispro 0 unit 07/15/24 08:00 07/15/24 07:22 Insulin Lispro 100 Unit/1 Ml SUBCUT Not Given TIDWM HIREN Protocol Pantoprazole Sodium 40 mg 07/15/24 06:00 07/15/24 05:27 Pantoprazole 40 Mg Sdv IVP 40 mg Q24H HIREN Administration PFSH Acute 2 PFSH: Medical History History of malignant melanoma Choledocholithiasis with obstruction Acromegaly History of thyroid nodule Degenerative arthritis Pituitary adenoma, GH-producing GERD (gastroesophageal reflux disease) Other and unspecified hyperlipidemia Type 2 diabetes mellitus without complications Benign essential hypertension Vitamin B12 deficiency anemia, unspecified BPH NOS w ur obs/LUTS Prostatic hemorrhage History of primary bladder cancer Elevated PSA Surgical History History of carpal tunnel release History of ERCP ERCP with stone extraction for choledocholithiasis in 2012 and in 2019 History of melanoma excision (1994) excision of melanoma from the right ear History of knee replacement History of back surgery History of left inguinal hernia repair 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 History of cholecystectomy H/O transurethral destruction of bladder lesion Family History Father , AT AGE 75 Renal failure Diabetes Mother , AT AGE 63 Cancer CAD (coronary artery disease) Denies family history of Clotting disorder Dementia Hyperlipidemia Psychiatric illness Chronic kidney disease (CKD) Suicide Anesthesia complication Bleeding disorder Lung disease Hypertension Stroke Social History Smoking and tobacco/nicotine status: never used tobacco/nicotine Alcohol intake: never Substance/Drug Use: never Adopted: No Caregiver/support person: No Lives independently: Yes Marital status: / Current occupational status: retired Current gender identity: Male Vitals/I&O/Wt Last Vital Signs Temp 97.9 F 07/15/24 08:00 Pulse 60 07/15/24 08:00 Resp 18 07/15/24 08:00 BP 171/79 07/15/24 08:00 Pulse Ox 95 07/15/24 08:00 O2 Del Method Room Air 07/15/24 08:00 07/14/24 07/15/24 07/15/24 22:59 06:59 14:59 Intake Total 906.25 / 906.25 Output Total 600 / 600 Balance -600 / -600 906.25 / 906.25 Weight last 48 hrs Weight 222 lb 1.6 oz Weight 223 lb Weight 224 lb Physical Exam 2 Narrative: Blood pressure 171/79 heart rate 60 respiration 18 temperature 97.9 ?F O2 saturation 95% on room air NIH score = 2 (secondary to mild right lower facial weakness and very minimal dysarthria/slurred speech). The patient is alert and oriented x 3. Speech revealed some questionable mild dysarthria. Cranial nerves II through XII revealed mild flattening of the right nasolabial fold. Other cranial nerves were intact. Pupils 3 mm round reactive to light and accommodation. There was signs of eye surgery bilaterally. Visual fuller appear to be full via confrontation. There were no nystagmus. Motor testing 5/5 bilaterally. There was no drift. There was no active ataxia in the upper or lower extremities. Plantar responses flexor bilaterally. Sensory examination intact to touch. There was no obvious extinction on double sensory stimulation. Throat clear. Lungs clear. Heart regular rhythm and rate extremities were negative for cyanosis. Data 07/14/24 16:13 07/14/24 16:13 Micro: Microbiology 07/14/24 16:15 Blood Culture - Preliminary Blood SPECIMEN COLLECTED 07/14/24 16:13 Blood Culture - Preliminary Blood SPECIMEN COLLECTED A&P Assessment and plan (1) Acute CVA (cerebrovascular accident): Impression: 1. 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 Hypertension 3. Constipation 4. Thyroid goiter 5. History of pituitary adenoma, gross hormone producing with acromegaly Plan: 1. Recommend occupational therapy, physical therapy and physical therapy consultation for baseline evaluation 2. Please give patient and patient's family stroke pamphlet 3. Continue lipid-lowering agent per NIH stroke protocol 4. Recommend starting aspirin 325 mg p.o. every morning with food per NIH stroke protocol 5. Address hypertension 6. Address thyroid goiter findings reported on CT angiogram 07/14/2024 7. Address medical issues as you are currently doing 8. Neurochecks and vital signs per NIH stroke protocol for acute stroke Consult Attestations 2 Medical Necessity Statement: The patient was evaluated by neurology for stroke reported in the right internal capsule of undetermined age Coding Level of Care Code 07706 Diagnoses Acute CVA (cerebrovascular accident) I63.9
--- OUTSIDE RECORDS SUMMARY | 2024-07-15 09:07 | XMS_ITS ---
Author Name Unknown Organization [facility] Address [address] [facility] [place] [address] Care Team Providers Care Retail Leader Name Role Phone David Soto Primary Care Provider ALCIDES Black [phone] REASON FOR VISIT Other Encounters Encounter Location Date Provider Diagnosis [facility] [address] [place] [facility] [place] [address] 01/03/2024 ALCIDES KHAN Plan Of Treatment Next Appt Details Provider Name:ALCIDES Peterson, 02/26/2025 10:40:00 AM, [address] [facility] [place], [address], Progress Notes * Asif BENITES DDOB:1939 (83 yo M)Acc No.[id number]:01/03/2024 Patient:?Asif BENITES :1940???Age:83 Y???Sex:Male Address:[address] [place] [address] [address] [place] [id number] * true * Date:? Generated for Sindi guy/Qing/eTransmitting on:?07/15/2024 09:07 AM CDT
--- OUTSIDE RECORDS SUMMARY | 2024-07-15 09:07 | XMS_ITS ---
Author Name Unknown Organization [facility] Address [address] [place] [address] Care Team Providers Care Confectionery Drops Machine Operator Name Role Phone Charles David Primary Care Provider ALCIDES Black Unavailable [phone] Allergies No Known Allergies Results Component Value Reference Range Notes Urinalysis, Routine Reviewed date:03/01/2024 05:02:15 PM Interpretation: Performing Lab: Notes/Report: Urine-Color yellow Appearance clear Glucose - Bilirubin - Ketones - Specific [place] 1.000 Occult Blood trace pH 8.0 Urine Protein trace Urobilinogen,Semi-Qn - Nitrite, Urine - WBC Esterase - REASON FOR VISIT Surveillance cysto Medications Medication SIG (Take, Route, Frequency, Duration) Notes Start Date End Date Status metFORMIN HCl 500 MG 1 tablet with a anayeli l Orally twice a day 08/13/2023 Active Lovastatin 40 MG 1 tablet with the evening meal Orally Once a day 08/13/2023 Active Lisinopril 40 MG 1 tablet Orally Once a day 08/13/2023 Not-Taking Amoxicillin 875 MG 1 tablet Orally Twic e a day 08/13/2023 Not-Taking Ciprofloxacin HCl 500 MG 1 tablet Orally every 12 hrs for 3 days 02/25/2024 02/28/2024 Active Metamucil Active Omeprazole 40 MG 1 capsule 30 minutes before morning meal Orally Once a day 08/13/2023 Active Metoprolol Tartrate 100 MG 1 tablet with food Orally Twice a day 08/13/2023 Active Social History Tobacco Use: Social History Observation Description Date Details (start date - stop date) Former Smoker NA - NA Tobacco Use/Smoking Question Answer Notes Tobacco use: former smoker How long has it been since you last smoked? > 10 years Vital Signs Temperature 97.6 degrees Fahrenheit 02/25/20 24 Blood pressure systolic 188 mm Hg 02/25/20 24 Blood pressure diastolic 98 mm Hg 024 Heart Rate 92 /min 02/25/2024 Height 68 in 02/25/2024 Weight 220 lbs 02/25/2024 BMI 33.45 kg/m2 02/25/2024 Height-cm 172.72 cm 02/25/2024 Weight-kg 99.79 kg 02/25/2024 Encounters Encounter Location Date Provider Diagnosis [facility] [address] [facility] [place] [address] 02/25/2024 ALCIDES KHAN BPH loc w urin obs/L UTS N40.1 ; History of bladder cancer Z85.51 ; Urgency of urination R39.15 ; Gross hematuria R31.0 ; Prostate cancer screening Z12.5 and Status post transurethral resection of prostate Z90.79 Assessments Encounter Date Diagnosis (ICD Code) Assessment Notes Treat ment Notes Treatment Clinical Notes 02/25/2024 BPH loc w urin obs/LUTS (ICD-10 - N40.1) 02/25/2024 History of bladder cancer (ICD-10 - Z85.51) 02/25/2024 Urgency of urination (ICD-10 - R39.15) 02/25/2024 Gross hematuria (ICD-10 - R31.0) 02/25/2024 Prostate cancer screening (ICD-10 - Z12.5) 02/25/2024 Status post transurethral resection of prostate (ICD-10 - Z90.79) Plan Of Treatment Medication Medication Name Sig Start Date Stop Date Notes Ciprofloxacin HCl 500 MG 1 tablet Orally every 12 hrs for 3 days 02/25/2024 02/28/2024 Next Appt Details Follow Up: 1 Year, Reason: c ysto Provider Name:ALCIDES Peterson, 02/26/2025 10:40:00 AM, [address] [place], [address], Progress Notes * Asif BENITES DDOB:1939 (83 yo M)Acc No.[id number]:02/25/2024 Patient:Asif YOUNG Provider:?ALCIDES KHAN MD :1940???Age:83 Y???Sex:Male Darren e:02/25/2024 Address:[address] [place], [place] [id number] Pcp:David Soto Subjective: * Chief Complaints: * ???1. Surveillance cysto. * HPI: ???Migrated HPI:? The patient is an 83-yo male, referred by Dr. Rubin for an elevated PSA of 7.5. He reports to have urgency and frequency q. 1 to 2 hours. PSAs have ranged from 4 to 7.8.. His granddaughter is present in the room. He has a h/o bladder cancer diagnosed in Nov 2011 with a small well-differentiated appearing papillary lesion on dome of bladder that was fulgurated in clinic. All cysto's have been negative for bladder cancer recurrence. He has a h/o hematuria and chronic prostatitis and nodular hyperplasia and is s/p TURP and negative biopsy in May 2006 and repeat TURP in September 2009. Cysto on 03/13/13, revealed friable prostate. He deferred repeat resection. Cysto in May 2022, revealed no evidence of bladder cancer recurrence but did show regrowth of right lateral lobe and of distal left lateral lobe. He was restarted on finasteride. He last saw Dr. Rubin on 12/26/22 and was doing well. Next cysto is due in May 2023. He has a h/o acromegaly, BPH/LUTS, h/o bladder cancer, h/o malignant melanoma, pituitary adenoma, prostatic hemorrhage and T2DM. He is s/p TURBT, TURP, back surgery, cholecystectomy, left inguinal hernia repair, excision of melanoma from right year, and transsphenoidal hypophysectomy for pituitary adenoma. His dad had renal failure. He is a former smoker. PVR 9.?He is having intermittent gross hematuria. The patient presents today for cystoscopy. * ROS:?General / Constitutional:?Patient denies?chills, fever, weight loss, good appetite.?ENT:?Patient denies?nasal congestionrhinorrhea or epistaxis.?Respiratory:?Patient denies?chronic cough, hemoptysis.?Cardiovascular:?Patient denies?substernal chest pain or palpitations, dyspnea with exertion.?Gastrointestinal:?Patient denies?constipation, rectal bleeding, weight loss, abdominal pain.?Hematology:?Patient denies?easy bruising, bleeding problems.?Genitourinary:?Patient denies?Documented in HPI.?Musculoskeletal:?Patient denies?arthritis / arthralgia, joint stiffness or swelling or redness.?Neurologic:?Patient denies?seizures, headache, difficulty speaking.?Psychiatric:?Patient denies?depressed mood, suicidal thoughts.? * Medical History:?Hypertensio n, Bladder infections, Hx bladder cancer, Hx gross hematuria, Acromegaly, BPH with LUTS, Choledocholithiasis with obstruction, Hx melanoma, Hx thyroid nodule, Hyperlipidemia, Pituitary adenoma, Prostatic hemorrhage, Diabetes, vitamin B 12 deficiency, Lip cancer. * Surgical History:?TURP 2008, bladder cancer surgery 2011, hx back surgery , carpal tunnel , cholecystectomy , ERCP , knee replacement , hernia repair , melanoma excision right ear , transsphenoidal hypophysectomy . * Hospitalization/Major Diagno stic Procedure:?surgery . * Family History:?Father: dece ased, renal failure, DM.?Mother: , breast cancer age 63.? * Social History:?Tobacco Use:?Tobacco Use/Smoking?Tobacco use:?former smoker,?How long has it been since you last smoked??> 10 years.? * Medications:?Taking Metamuci l , Taking Omeprazole 40 MG Capsule Delayed Release 1 capsule 30 minutes before morning meal Orally Once a day , Taking Metoprolol Tartrate 100 MG Tablet 1 tablet with food Orally Twice a day , Taking metFORMIN HCl 500 MG Tablet 1 tablet with a meal Orally twice a day , Taking Lovastatin 40 MG Tablet 1 tablet with the evening meal Orally Once a day , Not-Taking Lisinopril 40 MG Tablet 1 tablet Orally Once a day , Not-Taking Amoxicillin 875 MG Tablet 1 tablet Orally Twice a day , Medication List reviewed and reconciled with the patient * Allergies:?N.K.D.A. Objective: * Vitals:?BP: 188/98 mm Hg, HR : 92 /min, Temp: 97.6 F, Wt: 220 lbs, Wt-k.79 kg, Ht: 68 in, Ht-cm: 172.72 cm, BMI: 33.45 Index, Body Surface Area: 2.19. * Examination: ???General Examination: ?General appearance:?alert, pleasant, well-nourished and in no acute distress.?Head:?normocephalic, atraumatic.?Eyes:?conjunctiva clear, normal.?Neck / thyroid:?Neck is supple, no palpable cervical lymphadenopathy.?Skin:?with no suspicious skin lesions, normal skin turgor.?Heart:?regular rate and rhythm without murmurs, gallops, clicks or rubs.?Lungs:?clear to auscultation bilaterally.?Abdomen:?soft, nontender with normoactive bowel sounds in all four quadrants, No palpable organomegaly. No peritoneal signs. No shifting dullness..?Musculoskeletal:?No clubbing, cyanosis, or edema. No calf tenderness. Free range of motion in all extremities..?Neurologic:?No focal deficits, muscle strength 5/5 in all extremities..?Psych:?cooperative with exam.? Assessment: * Assessment: 1.?BPH loc w urin obs/LUTS - N40.1 (Primary)?2.?History of bladder cancer - Z85.51?3.?Urgency of urination - R39.15?4.?Gross hematuria - R31.0?5.?Prostate cancer screening - Z12.5?6.?Status post transurethral resection of prostate - Z90.79? 83 yo male with history of b ladder cancer, BPH s/p TURP. Cysto negative for recurrence today. Cystoscopy is negative for cancer recurrence. RTC in 1 year for surveillance cysto and UA/PVR. RTC or call sooner with any concerns. The patient voices understanding and agrees with the plan. All of his questions were answered to his satisfaction. Plan: * Treatment: ? Value Reference Range ?Urine-Color yellow * ?Appearance clear * ?Glucose - * ?Bilirubin - * ?Ketones - * ?Specific [place] 1.000 * ?Occult Blood trace * ?pH 8.0 * ?Urine Protein trace * ?Urobilinogen,Semi-Qn - * ?Nitrite, Urine - * ?WBC Esterase - * Procedures:?Urology: Cystoscopy: Consent: General procedure, indications, risks, benefits, alternative treatments, and expected outcomes have been discussed with this patient. The patient has had an opportunity to ask questions, and all questions have been answered by me. The patient verbalizes understanding, and to the best of my knowledge I feel the patient has been adequately informed and consented. The consent form has been signed. Pre-Op Diagnosis: h/o bladder cancer Pre-procedure Urinalysis Dipstick UA obtained prior to procedure to rule out acute UTI. Procedure Cystoscopy: Preparation and technique: antibiotic prophylaxis given (quinolone), topical anesthesia 2% lidocaine jelly, patient position supine, bladder washing by Barbotage technique. Anterior Urethra: thin bulbar stricture Prostatic urethra: TUR defect, regrowth of lateral lobes R>L Bladder: mild trabeculations, no recurrence Ureteral Orifice Normal. Post Procedure: All the instruments were removed from the patient. The patient tolerated the procedure well and was discharged from the office in good condition. All discharge instructions were reviewed with the patient and given in writing.. ? * Procedure Codes:?50807 URINA LYSIS, AUTO, W/O SCOPE, 75813 CYSTOSCOPY, G2211 Complex e/m visit add on * Follow Up:?1 Year (Reason: c ysto) * Billing Information: * Visit Code:? 05533 Office Visit, Est Pt., Level 4. * Procedure Codes:? 50555 URINALYSIS, AUTO, W/O SCOPE. 77016 CYSTOSCOPY. G2211 Complex e/m visit add on. * Sign off status: Completed true * Provider:?ALCIDES KHAN MD Date:?01/28 Generated for Aligned TeleHealthi ng/Fachiquitag/eTransmitting on:?07/15/2024 09:06 AM CDT History and Physical Notes * Examination Category Sub-Category Detail Notes General Examination General appearance: alert, p leasant, well-nourished and in no acute distress Head: normocephalic, atrau matic Eyes: conjunctiva clear, n ormal Neck / thyroid: Neck is supple, no p alpable cervical lymphadenopathy Heart: regular rate and rhy thm without murmurs, gallops, clicks or rubs Lungs: clear to auscultatio n bilaterally Abdomen: soft, nontender with normoactive bowel sounds in all four quadrants, No palpable organomegaly. No peritoneal signs. No shifting dullness. Neurologic: No focal deficits, m uscle strength 5/5 in all extremities. Skin: with no suspicious s kin lesions, normal skin turgor Musculoskeletal: No clubbing, cyanosi s, or edema. No calf tenderness. Free range of motion in all extremities. Psych: cooperative with exa m
--- OUTSIDE RECORDS SUMMARY | 2024-07-15 09:07 | XMS_ITS ---
Author Name Unknown Organization [facility] Address [address] [facility] [place] [address] Care Team Providers Care Back Sewer Name Role Phone David Soto Primary Care Provider ALCIDES Black [phone] REASON FOR VISIT in network with pts hmo now Encounters Encounter Location Date Provider Diagnosis [facility] [address] [place] [facility] [address] 01/03/2024 ALCIDES KHAN Plan Of Treatment Next Appt Details Provider Name:ALCIDES Peterson, 02/26/2025 10:40:00 AM, [address] [facility] [place], [address], Progress Notes * Asif BENITES DDOB:1939 (83 yo M)Acc No.[id number]:01/03/2024 Patient:?Asif BENITES :1940???Age:83 Y???Sex:Male Address:[address] [place] [address] [address], [place] [address] * true * Date:? Generated for Printi ng/Fachiquitag/eTransmitting on:?07/15/2024 09:07 AM CDT
--- OUTSIDE RECORDS SUMMARY | 2024-07-15 09:07 | XMS_ITS ---
Author Name Unknown Organization [facility] Address [address] [place] [address] Care Team Providers Care Filtration Operator Name Role Phone Charles RAMOSDavid Primary Care Provider Unavail able Leobardo Crespo [phone] REASON FOR VISIT Black stools/Lab results Encounters Encounter Location Date Provider Diagnosis [facility] [address] [place] [address] 11/05/2023 Leobardo Crespo Melena K92.1 Assessments Encounter Date Diagnosis (ICD Code) Assessment Notes Treatment Notes Treatment Clinical Notes 11/05/2023 Melena (ICD-10 - K92.1) Plan Of Treatment Future Test Test Name Order Date Basic Metabolic Panel (BMP) 05654 2022 CBC w\ Auto Diff [id number] 10/19/2023 Progress Notes * Asif BENITES DDOB:1939 (83 yo M)Acc No.[id number]:11/05/2023 Patient:?Asif Benites :1940???Age:83 Y???Sex:Male Address:[address] [place] [address], [address], [place] [address] Subjective: * Chief Complaints: * ???Black stools/Lab results * Medical History:? * Surgical History:? * Hospitalization/Major Diagno stic Procedure:? * Medications:? Objective: Assessment: * Assessment: 1.?Melena - K92.1? Plan: * Treatment: * Procedure Codes:? * true * Date:? Generated for Sindi guy/Qing/eTransmitting on:?07/15/2024 09:07 AM CDT
--- OUTSIDE RECORDS SUMMARY | 2024-07-15 09:07 | XMS_ITS | Patient Health Record ---
Author Name Unknown Organization [facility] Address [address] [place] [address] Care Team Providers Care Movie Projectionist Name Role Phone David Soto Primary Care Provider ALCIDES Black Unavailable [phone] Leobardo Crespo Unavailable Unavailable Allergies No Known Allergies Results Component Value Reference Range Notes Urinalysis, Routine Reviewed date:09/09/2023 06:04:00 PM Interpretation: Performing Lab: Notes/Report: Urine-Color yellow Appearance clear Glucose - Bilirubin - Ketones - Specific Phoenix 1.000 Occult Blood - pH 6.0 Urine Protein - Urobilinogen,Semi-Qn - Nitrite, Urine - WBC Esterase - Urinalysis, Routine Reviewed date:03/01/2024 05:02:15 PM Interpretation: Performing Lab: Notes/Report: Urine-Color yellow Appearance clear Glucose - Bilirubin - Ketones - Specific Phoenix 1.000 Occult Blood trace pH 8.0 Urine Protein trace Urobilinogen,Semi-Qn - Nitrite, Urine - WBC Esterase - Reason For Referral Reason Chronic Abd Pain A ppt 08/07 Referring Provider First Name David Referring Provider Last Name Charles Referring Provider Speciality Family Med icine Referred Provider Migration, Provider Referred Provider Specialty Gastroentero logy General Notes Karla Valle 04/18 02:48:17 PM >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;Referring To :Gastroenterology [facility];, Assign To :Tori Acosta;, Facility To :[facility] [id number]; Referral Priority Routine Medications Medication SIG (Take, Route, Frequency, Duration) Notes Start Date End Date Status Metamucil Active Omeprazole 40 MG 1 capsule 30 minutes before morning meal Orally Once a day 08/13/2023 Active Metoprolol Tartrate 100 MG 1 tablet with food Orally Twice a day 08/13/2023 Active metFORMIN HCl 500 MG 1 tablet with a anayeli l Orally twice a day 08/13/2023 Active Lovastatin 40 MG 1 tablet with the evening meal Orally Once a day 08/13/2023 Active Lisinopril 40 MG 1 tablet Orally Once a day 08/13/2023 Not-Taking Amoxicillin 875 MG 1 tablet Orally Twic e a day 08/13/2023 Not-Taking Social History Tobacco Use: Social History Observation Description Date Details (start date - stop date) Former Smoker NA - NA Tobacco Use/Smoking Question Answer Notes Tobacco use: former smoker How long has it been since you last smoked? > 10 years Problems Problem Type SNOMED Code ICD Code Onset Dates Problem Status W/U Status Risk Notes Problem 161547991 Gross hematuria (R31.0) Active confirmed Problem Urgent desire to urinate (77430408) Urgency of urination (R39.15) Active confirmed Problem 987252125 Elevated prostat e specific antigen [PSA] (R97.20) Active confirmed Problem History of transurethral resection of prostate (626622208) Status post transurethral resection of prostate (Z90.79) Active confirmed Problem Personal history of primary malignant neoplasm of urinary bladder (376420805) History of bladder cancer (Z85.51) Active confirmed Problem Screening for malignant neoplasm of prostate (117807919) Prostate cancer screening (Z12.5) Active confirmed Problem 719655569 Malignant neoplasm of urinary bladder, unspecified site (C67.9) Active confirmed Problem Benign prostatic hypertrophy with outflow obstruction (388794972) BPH loc w urin obs/LUTS (N40.1) Active confirmed Vital Signs Heart Rate 92 /min 02/25/2024 Temperature 97.6 degrees Fahrenheit 02/25/2024 Height-cm 172.72 cm 02/25/2024 Blood pressure diastolic 98 mm Hg 02/25/2024 Weight-kg 99.79 kg 02/25/2024 Height 68 in 02/25/2024 Blood pressure systolic 188 mm Hg 02/25/2024 Weight 220 lbs 02/25/2024 BMI 33.45 kg/m2 02/25/2024 Encounters Encounter Location Date Provider Diagnosis [facility] [address] [facility] [place] [address] 01/03/2024 ALCIDES [facility], [facility] [address] [facility] [place] [address] 01/03/2024 ALCIDES [facility], [facility] [address] [facility] [place] [address] 08/07/2023 Leobardo Crespo [facility], [facility] [address] [facility] [place] [address] 08/13/2023 ALCIDES KHAN BPH loc w urin obs/L UTS N40.1 ; Urgency of urination R39.15 ; Gross hematuria R31.0 ; Prostate cancer screening Z12.5 ; History of bladder cancer Z85.51 and Status post transurethral resection of prostate Z90.79 [facility], [facility] [address] [facility] [place] [address] 02/25/2024 ALCIDES KHAN BPH loc w urin obs/L UTS N40.1 ; History of bladder cancer Z85.51 ; Urgency of urination R39.15 ; Gross hematuria R31.0 ; Prostate cancer screening Z12.5 and Status post transurethral resection of prostate Z90.79 Assessments Encounter Date Diagnosis (ICD Code) Assessment Notes Treat ment Notes Treatment Clinical Notes 08/13/2023 Urgency of urination (ICD-10 - R39.15) 08/13/2023 BPH loc w urin obs/LUTS (ICD-10 - N40.1) 02/25/2024 History of bladder cancer (ICD-10 - Z85.51) 02/25/2024 BPH loc w urin obs/LUTS (ICD-10 - N40.1) 02/25/2024 Urgency of urination (ICD-10 - R39.15) 08/13/2023 Gross hematuria (ICD-10 - R31.0) 02/25/2024 Gross hematuria (ICD-10 - R31.0) 08/13/2023 Prostate cancer screening (ICD-10 - Z12.5) 02/25/2024 Prostate cancer screening (ICD-10 - Z12.5) 08/13/2023 History of bladder cancer (ICD-10 - Z85.51) 08/13/2023 Status post transurethral resection of prostate (ICD-10 - Z90.79) 02/25/2024 Status post transurethral resection of prostate (ICD-10 - Z90.79) 08/13/2023 Other PVR 9 ml Plan Of Treatment Pending Test Test Name Order Date PSA, total (cpt 61965) 08/13/2023 Next Appt Details Provider Name:ALCIDES Dion LANDAMalka Nicholas, 02/26/2025 10:40:00 AM, [address] [place], [address], Insurance Providers Payer Name Payer Address Payer Phone Subscriber Number Group Number Insured Name Patient Relationship to Insured Coverage Start Date Coverage End Date [place] [address] [place], [place] [id number] Asif Mcmillan Self - patient is the insured Medical (General) History Medical History History ICD Code hypertension bladder infections hx bladder cancer hx gross hematuria acromegaly BPH with LUTS choledocholithiasis with obstruction hx melanoma hx thyroid nodule hyperlipidemia pituitary adenoma prostatic hemorrhage diabetes vitamin B 12 deficiency lip cancer Surgical History Surgery Date(Month/Year) TURP 2009 bladder cancer surgery 2011 hx back surgery carpal tunnel cholecystectomy ERCP knee replacement hernia repair melanoma excision right ear transsphenoidal hypophysectomy Hospitalization History Reason Date(Month/Year) surgery
--- OUTSIDE RECORDS SUMMARY | 2024-07-15 09:08 | XMS_ITS ---
Author Name Unknown Organization [facility] Address [address] [place] [address] Zan SANTOS [place] [address] Care Team Providers Care Mechanic Senior Name Role Phone Soto David RAMOS Primary Care Provider Unavail able Crespo, Leobardo Long [phone] Results Component Value Reference Range Notes Prothrombin Time 34054 Reviewed date:08/16/2023 12:46:57 PM Interpretation: Performing Lab: Notes/Report: Diagnosis Description: Other specified abnormal findings of blood chemistry ProTime 10.5 9.1-11.9 SEC Normal Range: 9 .1-11.9 INR 1.00 .90-1.20 Therapeutic Range: 2.0-3.0 Therapaeutic Range for heart valve replacement: 2.5-3.50 [place] [address] Reviewed date:08/16/2023 12:46:57 PM Interpretation: Performing Lab: Notes/Report: Diagnosis Description: Other specified abnormal findings of blood chemistry Alpha Feto Prot <2.2 2.2-8.1 ng/mL Performed o n Siemens Atellica Solution Comprehensive Metabolic Pane l 93698 Reviewed date:08/16/2023 12:46:57 PM Interpretation: Performing Lab: Notes/Report: Diagnosis Description: Other specified abnormal findings of blood chemistry Glucose Serum 194 71-110 MG/DL Testing perfor med at [facility], [address] [place] [address] [place] [address]. CLIA ID#: [id number] BUN 12 7-21 MG/DL Creat .64 .57-1.17 MG/DL O-dpjhxv-h-benzoquinone imine (NAPQI) is a metabolite of acetaminophen, NAPQI concentrations of apparoximately 10 mg/L correlation to toxic levels of acetaminophen demonstrates a greater than or equil to 10% change in results. NAPQI concentrations greater than this may lead to falsely depressed results for patient samples. Use of this assay is not recommended for patients undergoing treatment with phenindione, due to the potential for falsely depressed results. GFR 93.2 Calculation per formed from GFR calculator provided by the [employer]. Glomerular Filtration rate(GRF) is the best overall index of kidney function. Normal GFR varies according to age,sex, body size, and declines with age. The National [employer] recommends using the CKD-EPI Creatinine Equation(2009) to estimate GFR. BUN/Creat Ratio 18.8 12.0-20.0 % Total Protein 7.1 5.8-8.0 G/DL Albumin 4.6 3.2-4.8 G/DL Globulin 2.5 2.3-3.5 G/DL Alb/Glob 1.8 0.8-2.2 Calcium 10.6 8.7-10.4 MG/DL Sodium 139 136-145 MMOL/L Potassium 4.8 3.5-5.1 MMOL/L Chloride 102 98-107 MMOL/L CO2 30.5 20.0-31.0 MMOL/L Anion Gap 11 5-15 Alk Phos 78 46-116 Bili Total .6 .3-1.2 MG/DL Use of this ass ay is not recommended for patients undergoing treatment with eltrombopag due to the potential for falsely elevated results. AST/SGOT 16 15-37 UNIT/L ALT/SGPT 8 12-78 UNIT/L Osmo Serum,Calculated 293 280-300 MOSM/KG CBC w\ Auto Diff 63257 Reviewed date:08/16/2023 12:46:57 PM Interpretation: Performing Lab: Notes/Report: Diagnosis Description: Other specified abnormal findings of blood chemistry WBC 4.8 4.5-11.0 X10'3 RBC 4.80 4.50-5.90 X10'6 Hgb 14.2 13.5-17.5 G/DL Hct 45.0 41.0-53.0 % MCV 93.8 80.0-100.0 FL MCH 29.6 27.0-31.0 PG MCHC 31.6 31.0-37.0 G/DL Platelet 152 150-400 X10'3 RDW-SD 48.0 35.0-49.0 FL RDW-CV 13.8 12.2-15.6 % MPV 9.8 9.2-12.0 FL Neutro Auto% 79.7 42.0-75.0 % Lymph Auto% 16.6 21.0-51.0 % [place] Auto% 2.9 1.7-9.3 % Eos Auto% .0 .0-6.0 Baso Auto% 0.2 0.0-1.0 Imm Gran% .6 .0-.4 % Neutro Abs 3.83 .80-7.70 Absolute Neutrophil Count 3830 Lymph Abs .80 .10-4.10 [place]son Abs .14 .20-1.00 Eos Abs .00 .00-.40 Baso Abs .01 .00-.10 Imm Gran Abs .03 .00-.10 NRBC# .00 .00-.20 NRBC% .00 .00-.20 /100 int act WBC's REASON FOR VISIT Lab results Encounters Encounter Location Date Provider Diagnosis [facility] [address] [place] [address] [place] [address] 08/16/2023 Leobardo Crespo Elevated LFTs R79.89 Assessments Encounter Date Diagnosis (ICD Code) Assessment Notes Treatment Notes Treatment Clinical Notes 08/16/2023 Elevated LFTs (ICD-10 - R79.89) Plan Of Treatment No Information Progress Notes * Asif BENITES DDOB:1939 (82 yo M)Acc No.[id number]:08/16/2023 Patient:?Asif Benites :1940???Age:82 Y???Sex:Male Address:[address] [place] [address] Subjective: * Chief Complaints: * ???Lab results * Medical History:? * Surgical History:? * Hospitalization/Major Diagno stic Procedure:? * Medications:? Objective: Assessment: * Assessment: 1.?Elevated LFTs - R79.89? Plan: * Treatment: * Procedure Codes:? * true * Date:? Generated for Sindi guy/Qing/eTlindsaysmjulito on:?07/15/2024 09:07 AM CDT
--- OUTSIDE RECORDS SUMMARY | 2024-07-15 09:08 | XMS_ITS ---
Author Name Unknown Organization [facility] ALLERGIES AND ADVERSE REACTIONS No information ASSESSMENT No information CHIEF COMPLAINT No information Medications Date Medication Dosage Startdate Stopdate Active Dispense Refills N dccode Drugcode Pharmacyid Isprescription Srcstatus 2023 12:00 :00 AM ciprofloxac in 500 mg tablet 6.50299 0 02/25/2024 12:00:00 AM 03/18/2024 12:00:00 AM 0 6.127774 [id number] [facility] -84739 HISTORICAL 2022 12:00 :00 AM tylenol extra strength 500 mg tablet 1 48061632 406 699176 ACTIVE 023 12:00 :00 AM carafate 1 gram tablet 90.0000 00 0 90.466565 3 450369 [facility] [place] 2023 12:00 :00 AM cyanocobala min (vit b-12) 1,000 mcg/ml injection solution 1 764542 ACTIVE 2022 12:00 :00 AM paxlovid 300 mg (150 mg x 2)-100 mg tablets in a dose pack 1.86313 0 0 1.351167 0 055950 P [facility] [place] 023 12:00 :00 AM omeprazole 40 mg capsule,del ayed release 90.0000 00 0 90.182616 3 134953 [facility] [place] 024 12:00 :00 AM famotidine 40 mg tablet 90.0000 00 11/20/2023 12:00:00 AM 1 90.956109 02845051 960 782956 [facility] ACTIVE 2022 12:00 :00 AM omeprazole 40 mg capsule,del ayed release 90.0000 00 07/26/2023 12:00:00 AM 12:00:00 AM 0 90.677939 90414900 401 716993 [facility] HISTORICAL 024 12:00 :00 AM somavert 10 mg subcutaneou s solution 30.0000 00 03/20/2024 12:00:00 AM 1 30.556118 1 21357656 502 179865 [facility] P ACTIVE 2023 12:00 :00 AM lovastatin 40 mg tablet 90.0000 00 01/05/2024 12:00:00 AM 1 90.093679 57772807 806 953705 [facility] ACTIVE 2023 12:00 :00 AM famotidine 40 mg tablet 90.0000 00 1 90.436610 3 356399 P ACTIVE 08/09 12:00 :00 AM prednisone 20 mg tablet 7.74396 0 0 7.940541 0 309732 [facility] 12:00 :00 AM amoxicillin 500 mg tablet 20.0000 00 08/09/2023 12:00:00 AM 12:00:00 AM 0 20.475366 51762429 301 127045 [facility] HISTORICAL 024 12:00 :00 AM mycapssa 20 mg capsule,del ayed release 56.0000 00 11/22/2023 12:00:00 AM 01/17/2024 12:00:00 AM 0 56.038797 72545134 352 7799263 [facility] 12:00 :00 AM cyanocobala min (vit b-12) 1,000 mcg/ml injection solution 3.53059 0 03/17/2024 12:00:00 AM 1 3.526622 0 58268913 901 274641 [facility]17456 P ACTIVE 2022 12:00 :00 AM paxlovid 300 mg (150 mg x 2)-100 mg tablets in a dose pack 30.0000 00 07/17/2023 12:00:00 AM 12:00:00 AM 0 30.016730 10158893 103 [facility] HISTORICAL 2023 12:00 :00 AM famotidine 20 mg tablet 1 0 280619 P ACTIVE 2023 12:00 :00 AM lovastatin 40 mg tablet 90.0000 00 1 90.159961 3 165173 P ACTIVE 2023 12:00 :00 AM senokot 8.6 mg tablet 90.0000 00 01/17/2024 12:00:00 AM 0 90.512216 3 763293 P HISTORICAL 024 12:00 :00 AM metoprolol tartrate 100 mg tablet 90.0000 00 03/26/2024 12:00:00 AM 1 90.316535 11599450 701 582065 [facility] ACTIVE 2023 12:00 :00 AM metoprolol tartrate 50 mg tablet 180.000 000 1 180.93109 0 3 608463 P ACTIVE 2023 12:00 :00 AM metoprolol tartrate 100 mg tablet 180.000 000 1 180.10503 0 3 411987 P ACTIVE 08/09 12:00 :00 AM amoxicillin 500 mg tablet 20.0000 00 0 20.363636 0 143794 [facility] [place] 2022 12:00 :00 AM vitamin daily 3 12:00:00 AM 0 HISTORICAL 08/19 12:00 :00 AM prednisone 20 mg tablet 7.34289 0 08/09/2023 12:00:00 AM 12:00:00 AM 0 7.794994 23363540 825 634584 [facility] HISTORICAL 2022 12:00 :00 AM sucralfate 1 gram tablet 90.0000 00 07/12/2023 12:00:00 AM 11/01/2023 12:00:00 AM 0 90.431456 30240174 001 925371 [facility] HISTORICAL OBJECTIVE DATA No information PHYSICAL EXAMINATION No information TREATMENT PLAN No information PROBLEMS No information RESULTS No information REVIEW OF SYSTEMS No information SUBJECTIVE DATA No information VITAL SIGNS No information
--- OUTSIDE RECORDS SUMMARY | 2024-07-15 09:08 | XMS_ITS | Patient Health Record ---
Author Name Unknown Organization [facility] Address [address] [place] [address] Care Team Providers Care Foundation Engineer Name Role Phone David Soto DO Primary Care Provider Unavail able Leobardo Crespo [phone] Results Component Value Reference Range Notes Prothrombin Time 33753 Reviewed date:08/16/2023 12:46:57 PM Interpretation: Performing Lab: Notes/Report: Diagnosis Description: Other specified abnormal findings of blood chemistry ProTime 10.5 9.1-11.9 SEC Normal Range: 9 .1-11.9 INR 1.00 .90-1.20 Therapeutic Range: 2.0-3.0 Therapaeutic Range for heart valve replacement: 2.5-3.50 [place] [address] Reviewed date:08/16/2023 12:46:57 PM Interpretation: Performing Lab: Notes/Report: Diagnosis Description: Other specified abnormal findings of blood chemistry Alpha Feto Prot <2.2 2.2-8.1 ng/mL Performed o n Siemens Atellica Solution IM CBC w\ Auto Diff 24452 Reviewed date:08/16/2023 12:46:57 PM Interpretation: Performing Lab: [...] 42.0-75.0 % Lymph Auto% 16.6 21.0-51.0 % [place] Auto% 2.9 1.7-9.3 % Eos Auto% .0 .0-6.0 Baso Auto% 0.2 0.0-1.0 Imm Gran% .6 .0-.4 % Neutro Abs 3.83 .80-7.70 Absolute Neutrophil Count 3830 Lymph Abs .80 .10-4.10 [place] Abs .14 .20-1.00 Eos Abs .00 .00-.40 Baso Abs .01 .00-.10 Imm Gran Abs .03 .00-.10 NRBC# .00 .00-.20 NRBC% .00 .00-.20 /100 int act WBC's Comprehensive Metabolic Pane l 86647 Reviewed date:08/16/2023 12:46:57 PM Interpretation: Performing Lab: Notes/Report: Diagnosis Description: Other specified abnormal findings of blood chemistry Glucose Serum 194 71-110 MG/DL Testing perfor med at [facility], [address] [place] [address] [place] [address]. CLIA ID#: [id number] BUN 12 7-21 MG/DL Creat .64 .57-1.17 MG/DL J-vyirrz-q-benzoquinone imine (NAPQI) is a metabolite of acetaminophen, [...] 12-78 UNIT/L Osmo Serum,Calculated 293 280-300 MOSM/KG Reason For Referral Reason Chronic Abd Pain A ppt 08/07 Referring Provider First Name David Referring Provider Last Name Charles Referring Provider Speciality Family [facility] Referred Organization [facility] Referred Provider [facility], [facility] Referred Address [address] [place],[address] Referred Provider Specialty Gastroentero logy General Notes Karla Valle 04/18 02:48:17 PM >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 Referral Priority Routine Medications Medication SIG (Take, Route, Frequency, Duration) Notes Start Date End Date Status Metoprolol Tartrate 100 MG 1 tablet with food Orally Twice a day Active SandoSTATIN LAR Depot 30 MG as directed Intramuscular Ever 4 weeks Not-Taking Fiber - as directed Orally 2 teaspoons mixed with 8 oz as needed Active Support Kombucha 1/2 bottle a day Active Acetaminophen 500 MG 1 capsule as needed Orally every 4 hrs Active Probiotic 1-250 BILLION-MG as directed Orally Active Laxative Pills 25mg As needed Active Sucralfate 1 GM 1 tablet on an empty stomach Orally Three times a day Active Lovastatin ER 40 MG 1 tablet at bedtime Orally Once a day Active Social History Tobacco Use: Social History Observation Description Date Details (start date - stop date) Former Smoker NA - NA xTobacco Use/Smoking Question Answer Notes Are you a former smoker How long has it been since you last smoked? > 10 years Alcohol Screen (Audit-C) Question Answer Notes Did you have a drink containing alcohol in the p ast year? No Points 0 Interpretation Negative Problems Problem Type SNOMED Code ICD Code Onset Dates Problem Status W/U Status Risk Notes Problem 9688386 Melena (K92.1) Active confirmed Problem 456213505 Gross hematuria (R31.0) Active confirmed Problem 730164710 Elevated prostat e specific antigen [PSA] (R97.20) Active confirmed Problem 150373453 Malignant neopla sm of urinary bladder, unspecified site (C67.9) Active confirmed Problem 022838868 History of cholecystectomy (Z90.49) Active confirmed Vital Signs Heart Rate 70 /min 08/07/2023 Temperature 98.2 degrees Fahrenheit 08/07/2023 Respiratory Rate 20 /min 08/07/2023 Height-cm 170.18 cm 08/07/2023 Oximetry 96 % 08/07/2023 Blood pressure diastolic 64 mm Hg 08/07/2023 Weight-kg 98.16 kg 08/07/2023 Height 67 in 08/07/2023 Blood pressure systolic 150 mm Hg 08/07/2023 Weight 216.4 lbs 08/07/2023 BMI 33.89 kg/m2 08/07/2023 Encounters Encounter Location Date Provider Diagnosis [facility] [address] [place] [address] 08/16/2023 Leobardo Crespo Elevated LFTs R79.89 [facility] [address] [place] [address] 11/05/2023 Leobardo Crespo Melena K92.1 [facility] [address] [place] [address] 08/07/2023 Leobardo Crespo Abdominal bloating R14.0 and History of cholecystectomy Z90.49 Assessments Encounter Date Diagnosis (ICD Code) Assessment Notes Treat ment Notes Treatment Clinical Notes 08/07/2023 Abdominal bloating (ICD-10 - R14.0) 08/07/2023 History of cholecystectomy (ICD-10 - Z90.49) 08/16/2023 Elevated LFTs (ICD-1 0 - R79.89) 11/05/2023 Melena (ICD-10 - K92.1) Plan Of Treatment Future Test Test Name Order Date Basic Metabolic Panel (BMP) 93041 2022 CBC w\ Auto Diff 69438 10/19/2023 Insurance Providers Payer Name Payer Address Payer Phone Subscriber Number Group Number Insured Name Patient Relationship to Insured Coverage Start Date Coverage End Date [place] [address] [place] [phone] [id number] Asif Mcmillan Self - patient is the insured Medical (General) History Medical History History ICD Code measles mumps Chicken Pox whooping cough (pertussis) Pneumonia diabetes Back Trouble High Blood Pressure sleep apnea Cancer Surgical History Surgery Date(Month/Year) back surgery 2000 Tumor removal pituitary gland 1999 Gall Bladder 2012 [place] Gallstones X3 2020 Knee Surgery Hospitalization History Reason Date(Month/Year) See history
--- OUTSIDE RECORDS SUMMARY | 2024-07-15 09:08 | XMS_ITS ---
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 Name Role Phone Soto David RAMOS Primary Care Provider Unavail able Leobardo Crespo [phone] REASON FOR VISIT Abdominal Pain Medications Medication SIG (Take, Route, Frequency, Duration) Notes Start Date End Date Status Metoprolol Tartrate 100 MG 1 tablet with food Orally Twice a day Active Probiotic 1-250 BILLION-MG as directed Orally Active Laxative Pills 25mg As needed Active Sucralfate 1 GM 1 tablet on an empty stomach Orally Three times a day Active Lovastatin ER 40 MG 1 tablet at bedtime Orally Once a day Active SandoSTATIN LAR Depot 30 MG as directed Intramuscular Ever 4 weeks Not-Taking Fiber - as directed Orally 2 teaspoons mixed with 8 oz as needed Active Support Kombucha 1/2 bottle a day Active Acetaminophen 500 MG 1 capsule as needed Orally every 4 hrs Active Social History Tobacco Use: Social History [...] Problem Status W/U Status Risk Notes Problem [id number] History of cholecystectomy (Z90.49) Active confirmed Vital Signs Temperature 98.2 degrees Fahrenheit 08/07/20 23 Blood pressure systolic 150 mm Hg 08/07/20 23 Blood pressure diastolic 64 mm Hg 023 Heart Rate 70 /min 08/07/2023 Respiratory Rate 20 /min 08/07/2023 Height 67 in 08/07/2023 Weight 216.4 lbs 08/07/2023 BMI 33.89 kg/m2 08/07/2023 Oximetry 96 % 08/07/2023 Height-cm 170.18 cm 08/07/2023 Weight-kg 98.16 kg 08/07/2023 Encounters Encounter Location Date Provider Diagnosis [facility] [address] [place] [address] 08/07/2023 Leobardo Crespo Abdominal bloating R14.0 and History of cholecystectomy Z90.49 Assessments Encounter Date Diagnosis (ICD Code) Assessment Notes Treat ment Notes Treatment Clinical Notes 08/07/2023 Abdominal bloating (ICD-10 - R14.0) 08/07/2023 History of cholecystectomy (ICD-10 - Z90.49) Plan Of Treatment Next Appt Details Follow Up: prn, Reason: ERCP report from [facility], Lab from Dr. 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 Mr. Benites is an 82-year-old gentleman who presents for evaluation. He gives a history of having his gallbladder removed and had stones in his bile duct. He has had 3 episodes where he had to have an ERCP with clearance of stones. He presented to the hospital septic on 2 of these occasions. He does complain of having some bloating episodes over the last year. This is usually when he eats out and eats a bigger meal or fatty meal. He is not having any fever or chills. He has been gaining weight. He has not been as active over the last year. He has not noticed any jaundice or dark urine. He had been on Sandostatin for a pituitary tumor but has recently discontinued this. He does not have any typical reflux symptoms. He has had no dysphagia, hematemesis or melena. * ROS:?General - Multi System:?Constitutional?Denies fever, chills, body aches, change in appetite, or problems with sleep ,Reports, recent weight gain.?Cardiovascular?Denies any recent chest pain, palpitations or syncope ,REPORTS, shortness of breath , with exertion.?Respiratory?Denies any cough, or hemoptysis.? * Medical History:? * Surgical History:?back surge ry 2000Tumor removal pituitary gland 2000Gall Bladder 2012Bileduct Gallstones X3 2020Knee Surgery * Hospitalization/Major Diagno stic Procedure:?See history * Family History:?Father: dece ased.?Mother: .? No history of colon cancer in family. * Social History:?Tobacco Use:?Tobacco Use/Smoking?Are you a?former smoker ?How long has it been since you last smoked??> 10 years ???Drugs/Alcohol:?Alcohol Screen (Audit-C)?Did you have a drink containing alcohol in the past year??No ?Points?0 ?Interpretation?Negative ?Caffeine?Intake:?2-3 cups per day Coffee, Tea ?Do you smoke marijuana?: Denies. ?Do you drink alcohol?: No. * Medications:?TakingFiber - P owder as directed Orally , Notes: 2 teaspoons mixed with 8 oz as neededSupport , Notes: Kombucha 1/2 bottle a dayAcetaminophen 500 MG Capsule 1 capsule as needed Orally every 4 hrsProbiotic 1-250 BILLION-MG Capsule as directed Orally Laxative Pills , Notes: 25mg As neededSucralfate 1 GM Tablet 1 tablet on an empty stomach Orally Three times a dayLovastatin ER 40 MG Tablet Extended Release 24 Hour 1 tablet at bedtime Orally Once a dayMetoprolol Tartrate 100 MG Tablet 1 tablet with food Orally Twice a dayTaking Fiber - Powder as directed Orally , Notes: 2 teaspoons mixed with 8 oz as neededTaking Support , Notes: Kombucha 1/2 bottle a dayTaking Acetaminophen 500 MG Capsule 1 capsule as needed Orally every 4 hrsTaking Probiotic 1-250 BILLION-MG Capsule as directed Orally Taking Laxative Pills , Notes: 25mg As neededTaking Sucralfate 1 GM Tablet 1 tablet on an empty stomach Orally Three times a dayTaking Lovastatin ER 40 MG Tablet Extended Release 24 Hour 1 tablet at bedtime Orally Once a dayTaking Metoprolol Tartrate 100 MG Tablet 1 tablet with food Orally Twice a dayNot-TakingSandoSTATIN LAR Depot 30 MG Kit as directed Intramuscular , Notes: Ever 4 weeksMedication List reviewed and reconciled with the patientNot-Taking SandoSTATIN LAR Depot 30 MG Kit as directed Intramuscular , Notes: Ever 4 weeksMedication List reviewed and reconciled with the patient * Allergies:?no[Allergies Veri fied] Objective: * Vitals:?Ht: 67 in, Wt:216.4 lbs, Wt-k.16 kg, BMI:33.89 Index, Temp:98.2 F, BP:150/64 mm Hg, HR:70 /min, RR:20 /min, Oxygen sat %:96 %, O2 Source: RA, Ht- cm: 170.18 cm. * Examination: ???Crespo Examination: ?General Appearance:?Well developed, well nourished, in no acute distress.?Heart:?Regular rate and rhythm, 2/6 systolic murmur, no jugular venous distention.?Chest:?Clear to auscultation and percussion.?Abdomen:?Bowel sounds present, no masses palpable, no organomegaly, soft, nontender, nondistended..?Extremities:?1+ LE edema bilateral.?Psych:?Alert, oriented, normal mood and affect.? Assessment: * Assessment: 1.?Abdominal bloating - R14. 0 (Primary)?2.?History of cholecystectomy - Z90.49? The etiology of his bloating may be recurrent common duct stones versus reflux weight change or other etiology. He had recent lab work and we will check this to see what his liver enzymes were. If these are significantly elevated he likely will need a repeat ERCP. We will obtain the records from his prior ERCP. Counseled him that if he starts feeling poorly with fever, chills, nausea or loss of appetite, we should check liver enzymes to make sure that she is not developing obstruction again. We will call him after reviewing his lab work and reviewing his prior ERCPs. Plan: * Treatment: * Procedure Codes:? * Follow Up:?prn (Reason: ERCP report from [facility], Lab from Dr. Soto) Care Plan: * Problems:? * Billing Information: * Visit Code:? 18342 Office Visit, New Pt., Level 3. * Procedure Codes:? * Sign off status: Completed true * Provider:?Leobardo Crespo MD Date:? 023 Generated for Sindi guy/Qing/eTransmitting on:?07/15/2024 09:07 AM CDT History and Physical Notes * Examination Category Sub-Category Detail Angel Crespo Examination General Appearance: Well develo ped, well nourished, in no acute distress Heart: Regular rate and rhy thm, 2/6 systolic murmur, no jugular venous distention Chest: Clear to auscultatio n and percussion Abdomen: Bowel sounds present , no masses palpable, no organomegaly, soft, nontender, nondistended. Extremities: 1+ LE edema bilatera l Psych: Alert, oriented, nor mal mood and affect
--- NOTE | 2024-07-15 09:28 | PC.CHAP ---
Pastoral Care Encounter/Spiritual Assessment Type of Contact [] Declined dinkey operator slate visit [] Patient/Family/Request visit [] Outpatient visit [] Follow-up visit [] Physician referral [] Code/Alert [x] Routine visit [] Staff referral [] Actively dying [] Patient sleeping [] Family support [] [] Out of room [] Palliative care [] [] Receiving care in room [] Pre-surgical visit [] Trauma [] Long length of stay [] ICU visit [] Other: Relational/Emotional Strength [x] Patient feels connected with others/family/visitors/staff [] Distress [] Loneliness/isolation [] Abandonment Spirituality of Patient [x] Person of Odalys [] Attends Jewish of their Odalys [x] Believes in Prayer [] Reads Bible or Taoist materials [] There are Spiritual issues to be addressed 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 Interventions [x] Prayer [x] Active listening [] Non-anxious presence [x] Spiritual/emotional support [] Crisis/trauma care [] Spiritual counseling [] Bereavement support [] Provided bereavement packet [] Provided Bible/devotional materials [] Provided toy/stuffed animal, coloring book to patient or family member [] Provided Communion [] Anointing/Marshall [] Salvation [x] Completed spiritual assessment [] Other: Impact on Illness or Injury [] Angry [] Fearful [] Anxious [] Often cries [] Exhaustion [] Unable to work [] Unable to attend hindu [] Unable to walk/stand [] Unable to read [] Unable to drive [] Unable to eat/drink [] Unable to sleep [] Unable to be with family [] Patient intubated [] Other: Summary Time spent with patient 5 min
--- NOTE | 2024-07-15 09:30 | MR_ITS ---
WS: [id number] MRI HEAD WITHOUT CONTRAST TECHNIQUE: Sagittal T1, T2 axial, T2 axial FLAIR, axial and coronal T1 images, axial susceptibility w eighted imaging, axial diffusion weighted images, and coronal T2 images were obtained. CLINICAL INFORMATION: cva COMPARISON: CT 07/14/2024 FINDINGS: A few tiny punctate foci of restricted diffusion within the LEFT carbone radiata compatible with acute ischemia. No mass effect or midline shift. Moderate small vessel changes. Moderate parenchymal volum e loss. No hemosiderin on the susceptibly weighted images. Normal optic chiasm and pituitary infundibulum. No rmal vascular flow voids at the skull base. No extra-axial fluid collections. No evidence of mass or mass effect. Paranasal sinuses are well aerated. MR/MR head wo con* [id number] IMPRESSION: 1. A few tiny foci of patchy restricted diffusion within the LEFT carbone radia ta compatible with acute ischemia. No significant mass effect or midline shift. 2. No other acute findings Notified Dr. Felix HUNT at 07/15/2024 1:40 PM.
[2024-07-15 13:11] LABS: Free T4 Free Thyroxine 1.23 ng/dL (0.82-1.77)
[2024-07-15 13:28] LABS: Iron 88 ug/dL (59-158); Percent Saturation 28.2 % (20-50); Total Iron Binding Capacity 312 mcg/dl; Unsaturated Iron Binding 224 ug/dL (112-347)
[2024-07-15 13:44] LABS: Vitamin B12 603 pg/mL (232-1245)
[2024-07-15 13:45] LABS: Glucose Point of Care 161 mg/dL (70-110)
[2024-07-15] MEDS: insulin lispro 100 unit/1 mL SUBCUT (13:47)
--- NOTE | 2024-07-15 14:03 | PM.MISC ---
Miscellaneous Note Purpose of Documentation: Cross coverage Note: Admitted overnight with concerns for stroke along with abdominal distention with history of choledocholithiasis requiring ERCP in the past. Follow-up MRI brain as per neurology. Continue with aspirin, Plavix, statin. Will get PT and Occupational Therapy as well. Advance diet as per speech evaluation. Appreciate low TSH. Check free T3 and free T4. Follow-up MRCP. For now we will hold off on Pegvisomant. Permissible hypertension. Change metoprolol 25 mg twice daily to prevent withdrawal tachycardia. Discharge plan: Patient requesting discharge to possible SNF.
[2024-07-15 16:36] LABS: Glucose Point of Care 91 mg/dL (70-110)
[2024-07-15] MEDS: sodium chloride 0.9% 1,000 ML 75 ML IV (18:14)
[2024-07-15 20:25] LABS: Glucose Point of Care 137 mg/dL (70-110)
[2024-07-15] MEDS: atorvastatin 40 mg Tablet PO (20:39)
[2024-07-15] MEDS: metoprolol tartrate 25 mg Tablet PO (20:39)
--- NOTE | 2024-07-15 23:57 | USCV_ITS ---
Asif Mcmillan Age: 83 Gender: M : 1940 Exam Date: 07/15/2024 06:34 Ordering Phys: Tanmay Post MD Technologist: Exam Location: [facility] [place] Indication: tia BP: 148 / 96 HR: 94 Rhythm: Sinus Technical Quality: Adequate MEASUREMENTS (Male / Female) Normal Values 2D ECHO LV Diastolic Diameter PLAX 5.3 cm 4.2 - 5.9 / 3.9 - 5.3 cm IVS Diastolic Thickness 2.1 cm 0.6 - 1.0 / 0.6 - 0.9 cm IVS Systolic Thickness 2.8 cm LVPW Diastolic Thickness 1.5 cm 0.6 - 1.0 / 0.6 - 0.9 cm LVPW Systolic Thickness 2.0 cm LVOT Diameter 2.1 cm LV Ejection Fraction 2D Teich 65.7 % LV Ejection Fraction MOD 4C 71.9 % LV Ejection Fraction MOD 2C 66.6 % LV Ejection Fraction 2C AL 66.8 % LA Diameter 4.0 cm RA Systolic Volume 4C AL 72.0 ml RA Systolic Volume 4C MOD 71.6 ml LA Sys Volume AL 94.6 cm cubed LA Sys Volume Index AL 38.1 cm cubed/m squared Aorta at Sinotubular Diameter 3.0 cm M-MODE LA Ao Ratio MM 1.1 MV E Point Septal Separation 1.5 cm AV Cusp Separation MM 2.3 cm DOPPLER AV Peak Velocity 313.7 cm/s LVOT Peak Velocity 89.0 cm/s AV Area Cont Eq vti 1.5 cm squared AV Area Cont Eq pk 1.0 cm squared MV Peak Velocity 127.0 cm/s MV Area PHT 2.6 cm squared Mitral E to A Ratio 0.5 TV Peak Velocity 256.5 cm/s TR Peak Velocity 279.0 cm/s TR Peak Gradient 31.1 mmHg TV Peak E Velocity 106.0 cm/s Right Atrial Pressure 3.0 mmHg Pulmonary Artery Systolic Pressu 34.1 mmHg PV Peak Velocity 117.0 cm/s FINDINGS Left Ventricle Left ventricle is normal in size. LV systolic function is normal with EF 55 to 60%. No regional wall motion abnormalities are seen. Moderate to severe left ventricular hypertrophy. Grade 1 diastolic dysfunction. Right Ventricle Normal in size and function. Right Atrium Normal in size Left Atrium Dilated. Mitral Valve Structurally normal mitral valve. Mild mitral regurgitation. Aortic Valve Aortic valve is thickened. Mild aortic stenosis with aortic valve area 1.61 cm squared and mean gradient across aortic valve 15 mmHg. Moderate aortic regurgitation. Tricuspid Valve Mild tricuspid regurgitation. Pulmonic Valve Mild pulmonic regurgitation. Pericardium Normal Aorta Normal in size IVC Not well-visualized. CONCLUSIONS LV systolic function is normal with EF 55 to 60%. Grade 1 diastolic dysfunction. Left atrial dilation. Mild mitral regurgitation. Mild aortic stenosis. Moderate aortic regurgitation. Mild tricuspid regurgitation. Mild pulmonic regurgitation. No comparison studies are available. Steve Back MD (Electronically Signed) Final Date: 15 July 2024 08:46 S
[2024-07-16] VITALS: BP 169/86; PULSE 55; RESP 19; TEMP 36.5; O2SAT 93
[2024-07-16 04:00] VITALS: BP 164/77; PULSE 60; RESP 18; TEMP 36.6; O2SAT 98
[2024-07-16 05:16] LABS: Eosinophils # 0.1 10^3/uL (0.0-0.8); Eosinophils % 3.2 %; Hematocrit 45.8 % (37-53); Lymphocytes # 1.1 10^3/uL (0.8-4.8); Lymphocytes % 27.7 %; Mean Corpuscular HGB Conc 32.5 g/dL (30-55); Mean Corpuscular Volume 95.4 fl (82-101); Mean Platelet Volume 9.4 fL (7.4-10.4); Monocytes # 0.4 10^3/uL (0.2-0.9); Monocytes % 8.5 %; Neutrophils # 2.47 10^3/uL (1.8-7.7); Neutrophils % 60.1 %; Nucleated Red Blood Cells % 0 %; Platelet Count 108 10^3/cmm (157-399); Red Cell Distribution Width 12.6 % (12.1-15.1); White Blood Count 4.11 10^3/uL (3.29-11.43)
[2024-07-16] MEDS: pantoprazole 40 mg SDV IVP (05:20)
[2024-07-16 05:38] LABS: Alanine Aminotransferase 8 U/L (0-41); Albumin Level 3.6 g/dL (3.5-5.2); Alkaline Phosphatase 46 U/L (40-130); Anion Gap 11.1 (5-19); Aspartate Amino Transferase 16 U/L (0-40); Blood Urea Nitrogen 9 mg/dL (8-23); Calcium 9.4 mg/dL (8.5-10.5); Carbon Dioxide 27 mmol/L (22-29); Chloride 107 mmol/L (98-107); Creatinine Clr Calc Pharmacy 79.0778; Globulin 2.4 g/dL (1.3-4.6); Glucose 114 mg/dL (65-115); Osmolality Calculated 292 mOsm/kg (285-295); Potassium 4.1 mmol/L (3.5-5.1); Sodium 141 mmol/L (136-145); Total Bilirubin 0.7 mg/dL (0.15-1.2)
[2024-07-16 05:41] VITALS: PULSE 56
[2024-07-16 06:29] VITALS: BMI 33.6
[2024-07-16 06:48] LABS: Glucose Point of Care 117 mg/dL (70-110)
[2024-07-16 08:00] VITALS: BP 168/78; PULSE 85; RESP 18; TEMP 36.6; O2SAT 94
[2024-07-16] MEDS: sodium chloride 0.9% 1,000 ML 75 ML IV (08:43)
[2024-07-16] MEDS: aspirin 81 mg EC Tablet PO (09:10)
[2024-07-16] MEDS: acetaminophen 325 mg Tablet 650 MG PO (09:11)
[2024-07-16] MEDS: enoxaparin 40 mg/0.4 mL Syringe SUBCUT (09:12)
[2024-07-16] MEDS: metoprolol tartrate 25 mg Tablet PO (09:12)
[2024-07-16] MEDS: clopidogrel 75 mg Tablet PO (09:12)
--- NOTE | 2024-07-16 09:20 | PC.CHAP ---
Pastoral Care Encounter/Spiritual Assessment Type of Contact [] Declined special needs teacher visit [] Patient/Family/Request visit [] Outpatient visit [] Follow-up visit [] Physician referral [] Code/Alert [x] Routine visit [] Staff referral [] Actively dying [x] Patient sleeping [x] Family support [] [] Out of room [] Palliative care [] [] Receiving care in room [] Pre-surgical visit [] Trauma [] Long length of stay [] ICU visit [] Other: Relational/Emotional Strength [] Patient feels connected with others/family/visitors/staff [] Distress [] Loneliness/isolation [] Abandonment Spirituality of Patient [] Person of Odalys [] Attends Latter Day of their Odalys [] Believes in Prayer [] Reads Bible or Quaker materials [] There are Spiritual issues to be addressed Membership Coordinator Interventions [x] Prayer [x] Active listening [x] Non-anxious presence [x] Spiritual/emotional support [] Crisis/trauma care [] Spiritual counseling [] Bereavement support [] Provided bereavement packet [] Provided Bible/devotional materials [] Provided toy/stuffed animal, coloring book to patient or family member [] Provided Communion [] Anointing/Nunda [] Salvation [] Completed spiritual assessment [x] Other:Patient sleeping. Visited and prayed with family. Impact on Illness or Injury [] Angry [] Fearful [] Anxious [] Often cries [] Exhaustion [] Unable to work [] Unable to attend buddhist [] Unable to walk/stand [] Unable to read [] Unable to drive [] Unable to eat/drink [] Unable to sleep [] Unable to be with family [] Patient intubated [] Other: Summary Time spent with patient 5 min
--- NOTE | 2024-07-16 11:24 | PM.DCS ---
Discharge Providers Date of Admission: 07/15/24 00:40 Date of Discharge: July 16, 2024 Attending Provider at Admission: Tanmay Post MD Attending Provider at Discharge: Sergio Ramirez MD Consults: Neurology: Dr. 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 Currently patient is alert to person, to place, not to time, has a right facial droop, slurring his words, at times does have word finding difficulty, but I can make out most of what he is saying, and family members at bedside help. Patient tells me that today he woke up this morning, nothing out of the ordinary, he went to have breakfast, came back home and did laundry, at about 1 PM he started noticing that he was slurring his words, he felt weak all over, due to his word slurring, and his weakness, he called his son, who currently is not present in the room, but family members tell me that his son said he Kinza was slurring his words over the phone, and ever raphael was worried and wanted to go to the hospital. Patient's daughter and niece immediately came and saw Asif, he was slurring his words, had right facial droop, word finding difficulty, he felt weak all over but no real focal weakness, no slurring words, did feel unsteady on his feet, but no falls. Patient family tells me that he arrived at the emergency room at roughly 2 PM. Patient's family tells me that they were checked in at the front, and he was in the waiting room for over 6 hours, family versed kept coming up to the front and reported to ER staff that he was slurring his words more and more. Patient was seen by ER provider by roughly 8 PM, NIH stroke scale was 2, no stroke alert was called, neurology was not notified. Hospital Course Hospital Course Patient was admitted to the hospital further evaluation and management of a possible stroke. Neurology was consulted who recommended patient to have an MRI. Patient was not found to be in the time interval for tenecteplase. CT abdomen pelvis was done because of abdominal distention in which there was a concern for biliary dilatation for which MRCP was done which ruled out any obstructive biliary pathology. During hospitalization his liver functions remain normal. MRI of the head was consistent with a tiny left carbone radiata acute ischemia. Patient was seen by PT/OT and speech therapy during hospitalization and diet and physical therapy was advanced gradually. He has been discharged home with home health for further rehabitation. During hospitalization his antihypertensives were adjusted. He is to follow-up with neurology and his primary care provider as an outpatient within next 2 weeks. He is to check his blood pressure daily maintain a blood pressure diary for further adjustment of antihypertensives. Physical Exam Const: COMMON NORMALS: no acute distress ORIENTATION/CONSCIOUSNESS: Yes awake, Yes oriented to person, Yes oriented to place and Yes oriented to time HENMT: COMMON NORMALS: normocephalic HEAD & SCALP: normocephalic Eye: COMMON NORMALS: Equal, round and reactive pupils present and EOMs intact bilaterally PUPIL: Yes Equal, round and reactive pupils present Neck/C-Spine: COMMON NORMALS: full ROM, no lymphadenopathy and no JVD Resp: COMMON NORMALS: normal respiratory effort, No retractions, No use of accessory muscles and clear to auscultation bilaterally AUSCULTATION: clear to auscultation bilaterally Cardio: COMMON NORMALS: no JVD, regular rate, regular rhythm, S1 normal heart sound present and S2 normal heart sound present RATE: regular rate RHYTHM: regular rhythm HEART SOUNDS: S1 normal heart sound present and S2 normal heart sound present GI: OTHER: Abdomen soft, diffusely tender tender although mild, abdominal distention, no guarding, no rebound, no rigidity : COMMON NORMALS: Yes no CVA tenderness BLADDER/KIDNEY EXAM: Yes no CVA tenderness Back/Pelvis: COMMON NORMALS: no CVA tenderness Extremity: COMMON NORMALS: no pedal edema Neuro: SENSORIUM/ORIENTATION: Yes oriented to person, Yes oriented to place and Yes oriented to time OTHER: Bilateral upper extremity, equal strength, bilaterally, no significant weakness His bilateral lower extremity, equal strength bilaterally no significant weakness ? Right [id number] normal ? Left [id number] abnormal ? Right facial droop ? Slurring of his words ? At does have word finding difficulty ? Extraocular movements intact Cranial nerve II to XII grossly intact except right facial droop as above Does have slurring of his words ? NIH stroke scale 12 No extinction Discharge Data Studies Completed and Pending Completed Studies During Hospitalization Category Date Time Status CT abdomen pelvis w con* [id number] Stat Cat Scan 07/14/24 21:[address] angio head neck [CT angio headneck* [id number]] Cat Scan 07/14/24 23:[address] head wo con* [id number] Stat Cat Scan 07/14/24 21:31 Completed XR acute abdomen series [id number] Stat Exams 07/14/24 15:49 Completed MR MRCP [id number] Routine MRI 07/15/24 00:04 Completed MR head wo con* [id number] Routine MRI 07/15/24 09:30 Completed CV. echo w/w bubble cont [id number] Stat Ultrasound 07/15/24 23:57 Completed Pending at discharge Category Date Time Status Blood Culture Stat Lab 07/14/24 16:15 Results C.Diff PCR (Lab) Routine Lab 07/14/24 23:54 Uncollected Immunochemical Fecal OCB Routine Lab 07/14/24 23:54 Uncollected Lactoferrin Routine Lab 07/14/24 23:54 Uncollected MAG [Magnesium] AM LABS Lab 07/17/24 04:00 Ordered MAG [Magnesium] AM LABS Lab 07/18/24 04:00 Ordered OVA and Parasites, Conc and PE Routine Lab 07/14/24 23:54 Uncollected Salmonella / Shigella / Campy Routine Lab 07/14/24 23:54 Uncollected Radiology Impressions Chest/Abdomen X-ray 07/14/24 15:49 IMPRESSION: 1. Nonobstructive bowel gas pattern. If there is ongoing clinical concern, consider correlation with CT. 2. Nonspecific prominent opacity in the superior mediastinum. Consider correlation with CT to exclude an underlying mass. Abdomen/Pelvis CT 07/14/24 21:31 IMPRESSION: 1. Pneumobilia with [id number] intra and extrahepatic ductal dilatation, grossly stable compared to prior study. Questionable 9 mm calcification in the region of the ampulla could represent choledocholithiasis or may be artifactual. 2. Other stable findings above. Head CT 07/14/24 21:31 IMPRESSION: 1. No intracranial hemorrhage. 2. Age-indeterminate hypodensity in the region of the anterior limb of the right internal capsule, new since February 2020. If there is clinical concern for acute ischemia beyond the window for neuro intervention, consider correlation with MRI. Head/Neck CTA 07/14/24 23:17 IMPRESSION: No large vessel stenosis or occlusion. IMPRESSION: 1. No evidence of stenosis or occlusion. 2. Enlarged thyroid gland with irregular nodular enhancement likely representing goiter. Recommend follow-up thyroid ultrasound if indicated. 3. Suggested soft tissue thickening at the level of larynx concerning for mass. Recommend nonemergent ENT consultation. REFERENCES: NASCET CRITERIA. The degree of stenosis in the cervical segment of the internal carotid artery is based on NASCET criteria. Normal is no stenosis. Mild is less than 50% stenosis. Moderate is 50-69% stenosis. Severe is 70% to 99% stenosis. Total occlusion is no detectable patent lumen. Cholangiopancreatography MRI 07/15/24 00:04 Impression: Some images limited by motion and respiratory artifact 1. No obstructing common bile duct calculi. 2. A few foci of susceptibility artifact in the common bile duct compatible with pneumobilia. 3. Note previous CT 03/29/2022 demonstrated a calculus in the distal common bile duct which does not appear present today. Recommend correlation with interval ERCP. Head MRI 07/15/24 09:30 IMPRESSION: 1. A few tiny foci of patchy restricted diffusion within the LEFT carbone radiata compatible with acute ischemia. No significant mass effect or midline shift. 2. No other acute findings Notified Dr. Felix HUNT at 07/15/2024 1:40 PM. Echocardiogram: CONCLUSIONS LV systolic function is normal with EF 55 to 60%. Grade 1 diastolic dysfunction. Left atrial dilation. Mild mitral regurgitation. Mild aortic stenosis. Moderate aortic regurgitation. Mild tricuspid regurgitation. Mild pulmonic regurgitation. No comparison studies are available. Steve Back MD (Electronically Signed) Final Date: 15 July 2024 08:46 S Laboratory Results WBC 4.11 10^3/uL (3.29-11.43) 07/16/24 04:38 RBC 4.80 10^6/uL (3.85-5.65) 07/16/24 04:38 Hgb 14.90 g/dL (11.27-16.99) 07/16/24 04:38 Hct 45.8 % (37-53) 07/16/24 04:38 MCV 95.4 fl (82-101) 07/16/24 04:38 MCH 31.0 pg (27-33) 07/16/24 04:38 MCHC 32.5 g/dL (30-55) 07/16/24 04:38 RDW 12.6 % (12.1-15.1) 07/16/24 04:38 Plt Count 108 10^3/cmm (157-399) L 07/16/24 04:38 MPV 9.4 fL (7.4-10.4) 07/16/24 04:38 Neut % (Auto) 60.1 % 07/16/24 04:38 Lymph % (Auto) 27.7 % 07/16/24 04:38 [place] % (Auto) 8.5 % 07/16/24 04:38 Eos % (Auto) 3.2 % 07/16/24 04:38 Baso % (Auto) 0.0 % 07/16/24 04:38 Neut # (Auto) 2.47 10^3/uL (1.8-7.7) 07/16/24 04:38 Lymph # (Auto) 1.1 10^3/uL (0.8-4.8) 07/16/24 04:38 [place] # (Auto) 0.4 10^3/uL (0.2-0.9) 07/16/24 04:38 Eos # (Auto) 0.1 10^3/uL (0.0-0.8) 07/16/24 04:38 Baso # (Auto) 0.0 10^3/uL (0.0-0.1) 07/16/24 04:38 Nucleated RBC % (auto) 0 % 07/16/24 04:38 Nucleated RBCs # 0.0 /100WBC 07/16/24 04:38 ESR 6 mm/hr (0-10) 07/15/24 00:04 Sodium 141 mmol/L (136-145) 07/16/24 04:38 Potassium 4.1 mmol/L (3.5-5.1) 07/16/24 04:38 Chloride 107 mmol/L (98-107) 07/16/24 04:38 Carbon Dioxide 27 mmol/L (22-29) 07/16/24 04:38 Anion Gap 11.1 (5-19) 07/16/24 04:38 BUN 9 mg/dL (8-23) 07/16/24 04:38 Creatinine 0.6 mg/dL (0.7-1.2) L 07/16/24 04:38 GFR Calculation Not Reportable 07/16/24 04:38 Glucose 114 mg/dL (65-115) 07/16/24 04:38 POC Glucose 117 mg/dL (70-110) H 07/16/24 06:19 Estimat Average Glucose 134 07/15/24 02:33 Hemoglobin A1c 6.3 % (4.0-6.0) H 07/15/24 02:33 Calculated Osmolality 292 mOsm/kg (285-295) 07/16/24 04:38 Lactic Acid 2.4 mmol/L (0.5-2.2) H 07/14/24 16:13 Lactic Acid (Sepsis) 1.7 mmol/L (0.5-2.2) 07/14/24 19:01 Calcium 9.4 mg/dL (8.5-10.5) 07/16/24 04:38 Magnesium 2.0 mg/dL (1.7-2.3) 07/16/24 04:38 Iron 88 ug/dL (59-158) 07/15/24 02:33 TIBC 312 mcg/dl 07/15/24 02:33 % Saturation 28.2 % (20-50) 07/15/24 02:33 Unsat Iron Binding 224 ug/dL (112-347) 07/15/24 02:33 Ferritin 42 ng/mL (30-400) 07/15/24 00:04 Total Bilirubin 0.7 mg/dL (0.15-1.2) 07/16/24 04:38 GGT 16 U/L (8-61) 07/15/24 00:04 AST 16 U/L (0-40) 07/16/24 04:38 ALT 8 U/L (0-41) 07/16/24 04:38 Alkaline Phosphatase 46 U/L (40-130) 07/16/24 04:38 Troponin T Baseline 36 ng/L (0-15) H 07/15/24 00:04 Troponin T 120 Minute 39.34 ng/L (0-15) H 07/15/24 02:33 Delta Troponin T 3.34 ABS# (0-10) 07/15/24 02:33 Troponin T Hi Sens 6Hr 35.88 ng/L (0-15) H 07/15/24 05:58 Troponin T Hi Sens 6Hr Delta -0.12 ng/L (0-12) L 07/15/24 05:58 C-Reactive Protein 3.0 mg/L (0.0-4.9) 07/14/24 16:13 NT-Pro-B Natriuret Pep 1227 pg/mL (0-450) H 07/15/24 00:04 Total Protein 6.0 g/dL (6.6-8.7) L 07/16/24 04:38 Albumin 3.6 g/dL (3.5-5.2) 07/16/24 04:38 Globulin 2.4 g/dL (1.3-4.6) 07/16/24 04:38 Triglycerides 194 mg/dL (0-150) H 07/15/24 02:33 Cholesterol 191 mg/dL (0-200) 07/15/24 02:33 LDL Cholesterol, Calc 100 mg/dL (50-129) 07/15/24 02:33 HDL Cholesterol 52 mg/dL (60-100) L 07/15/24 02:33 LDL/HDL Ratio 1.92 RATIO (0.00-3.22) 07/15/24 02:33 Cholesterol/HDL Ratio 3.67 mg/dL (1.0-5.00) 07/15/24 02:33 Lipase 27 U/L (13-60) 07/15/24 00:04 Vitamin B12 603 pg/mL (232-1245) 07/15/24 02:33 Folate 13.0 ng/mL (4.5-32.2) 07/16/24 04:38 Procalcitonin 0.04 ng/mL (0-0.5) 07/15/24 00:04 TSH 0.24 uIU/mL (0.27-4.20) L 07/15/24 02:33 Free T4 1.23 ng/dL (0.82-1.77) 07/15/24 02:33 Free T3 3.0 PG/ML (2.0-4.4) 07/15/24 02:33 Random Cortisol 8.20 ug/dL (2.47-19.5) 07/15/24 00:04 Urine Color Yellow (Yellow) 07/14/24 22:50 Urine Appearance Clear (CLEAR) 07/14/24 22:50 Urine pH 7 (5-7) 07/14/24 22:50 Ur Specific [place] 1.005 (1.005-1.030) 07/14/24 22:50 Urine Protein Neg (Negative) 07/14/24 22:50 Urine Glucose (UA) Norm (Normal) 07/14/24 22:50 Urine Ketones Negative (Negative) 07/14/24 22:50 Urine Blood Neg (Negative) 07/14/24 22:50 Urine Nitrate Negative (Negative) 07/14/24 22:50 Urine Bilirubin Neg (Negative) 07/14/24 22:50 Urine Urobilinogen Norm mg/dL (Negative) 07/14/24 22:50 Ur Leukocyte Esterase Negative (Negative) 07/14/24 22:50 Amorphous Sediment Not Reportable 07/14/24 22:50 Vitals Last Vital Signs Temp 97.8 F 07/16/24 08:00 Pulse 85 07/16/24 08:00 Resp 18 07/16/24 08:00 BP 168/78 07/16/24 08:00 Pulse Ox 94 07/16/24 08:00 O2 Del Method Room Air 07/16/24 08:00 Discharge Plan Discharge Patient Disposition: Home Health Service Condition: Stable Prescriptions: New clopidogrel 75 mg Tablet 75 mg PO DAILY Qty: 30 0RF aspirin 81 mg Tablet,Delayed Release (Dr/Ec) 81 mg PO DAILY Qty: 30 0RF losartan 50 mg tablet 50 mg PO DAILY Qty: 60 0RF Continued lovastatin 40 mg tablet 40 mg PO DAILY pegvisomant 10 mg recon soln 10 mg SUBCUT DAILY 30 Days Qty: 30 3RF famotidine 40 mg tablet 40 mg PO QAM cyanocobalamin (vitamin B-12) 1,000 mcg/mL solution 1,000 mcg IM .Q30D Tylenol 325 mg Capsule See Rx Instructions .ROUTE .COMPLEX Rx Instructions: Take 2 capsules by mouth in the morning, evening, and 2 tablets at noon if needed for headache. Changed metoprolol tartrate 50 mg tablet 25 mg PO BID Qty: 30 0RF Discharge Orders: Discharge Order (Routine); Ordered 07/16/24 Ordered By: Sergio Ramirez Referrals: [facility] [Outside] Simon Galicia MD [Physician] - 2 weeks (We have notified your physician's clinic of the need for a follow-up appointment to be scheduled. If you have not heard from them within the next 2 business days, please call them directly. ) David Soto DO [Primary Care Provider] - 07/22/24 8:20 am ( ) Discharge Diet: As Directed Patient Instructions: Losartan (By mouth), Clopidogrel (By mouth) (Plavix), Stroke (DC), Opioid Safety, Stroke Stoplight Activity Restrictions/Additional Instructions: Dysphagia level 6 diet Follow-up with neurologist as an outpatient in 2 weeks. Goal blood pressure less than 140/90 mmHg. Dose of metoprolol has been changed to 25 mg oral daily and losartan 50 mg daily has been added to your medication list. Discharge Attestations Time Spent in Discharge Care*: greater than 30 min Specific Discharge Activities: educating patient, discussing with pcp/other providers, discussing with showcase trimmer/social workers/dc planners, documenting/other paperwork and evaluating patient/reviewing data Status at Discharge: Cognitive status at discharge: cognitively intact, Behavioral status at discharge: cooperative, Functional status at discharge: uses cane/walker, Overall status at discharge: patient is progressing back to baseline Quality Metrics Clinical Quality Measures [ Cerebrovascular Accident { Contraindication to Antithrombotic: None; antithrombotic prescribed; Contraindication to Anticoagulation: Overlap treatment not indicated; Contraindication to Statin: None; Statin prescribed; Contraindication to tPA: Did not meet criteria;}] Coding Level of Care Code 28677 Total time (in minutes) for Discharge: 60 Diagnoses Acute CVA (cerebrovascular accident) I63.9
[2024-07-16 11:33] LABS: Glucose Point of Care 146 mg/dL (70-110)
[2024-07-16 11:49] VITALS: BP 158/74; PULSE 63; RESP 18; TEMP 36.8; O2SAT 93
[2024-07-16] MEDS: insulin lispro 100 unit/1 mL SUBCUT (12:10)
--- NOTE | 2024-07-16 12:39 | PC.SOCIAL ---
IMM Updated Updated pt on IMM. No questions voiced. Provided pt a copy. Initialed, dated, & timed a copy & placed in chart.
--- NOTE | 2024-07-16 14:07 | PC.NURSE ---
All discharge instructions and medications were went over with patient and daughter Emilia. Stroke education booklet and stoplight provided. All questions answered and patient and daughter both verbalized understanding.
[2024-07-16 14:09] VITALS: BP 158/74; PULSE 63; RESP 18; TEMP 36.8; O2SAT 93
--- NOTE | 2024-07-16 14:11 | PC.NURSE ---
home med pegvisomant subcu injection given back to patient when discharged
== END 2024-07-16 14:08 | disposition home health service (06) | DRG 65 ==
LOC: ER 22:59 → MEDSURG 07-15 00:34
PROVIDERS: Emergency Medicine; Admitting Provider Family Medicine; Emergency Provider Student in an Organized Health Care Education/Training Program; PCP Electrodiagnostic Medicine; Visit Provider Student in an Organized Health Care Education/Training Program
DX: I63.9 Cerebral infarction, unspecified (principal); E23.0 Hypopituitarism; I10 Essential (primary) hypertension; E11.9 Type 2 diabetes mellitus without complications; K21.9 Gastro-esophageal reflux disease without esophagitis; E78.5 Hyperlipidemia, unspecified; R14.0 Abdominal distension (gaseous); E53.8 Deficiency of other specified B group vitamins; K59.00 Constipation, unspecified; E04.9 Nontoxic goiter, unspecified; R47.81 Slurred speech; R29.810 Facial weakness; Z90.49 Acquired absence of other specified parts of digestive tract; Z79.899 Other long term (current) drug therapy; Z85.51 Personal history of malignant neoplasm of bladder; Z85.820 Personal history of malignant melanoma of skin
CPT/HCPCS: 36415; 36416; 70450; 70496; 70498; 70551; 74022; 74177; 74181; 80053; 80061; 81001; 82533; 82607; 82728; 82746; 82962; 82977; 83036; 83540; 83550; 83605; 83690; 83735; 83880; 84145; 84439; 84443; 84481; 84484; 85025; 85651; 86140; 87040; 92523; 92610; 93005; 94664; 96360; 96361; 96372; 97161; 97165; 99285; C8929; J1650; J1815; J2470; J7030

== ENCOUNTER 2024-07-29 06:30 | Outpatient (RCR) | payer MEDICARE, SELFPAY | END 2024-08-28 23:59 | disposition home or self-care (01) | LOC: SST 06:30 | PROVIDERS: Visit Provider Electrodiagnostic Medicine | DX: I63.9 Cerebral infarction, unspecified (principal) | CPT/HCPCS: 92507; 92523 ==

== ENCOUNTER → 2024-07-31 10:25 | Outpatient (BNVA) | payer MEDICARE, MEDICAID, SELFPAY | PROVIDERS: PCP Electrodiagnostic Medicine; Referring Provider Electrodiagnostic Medicine; Visit Provider Psychiatry & Neurology Neurology | DX: I63.9 Cerebral infarction, unspecified (principal); Z09 Encounter for follow-up examination after completed treatment for conditions other than malignant neoplasm | CPT/HCPCS: 99212 ==

== ENCOUNTER → 2024-08-13 08:49 | Outpatient (BNVA) | payer MEDICARE, SELFPAY | PROVIDERS: Visit Provider Nurse Practitioner Family | DX: L57.0 Actinic keratosis (principal); L82.0 Inflamed seborrheic keratosis; L56.8 Other specified acute skin changes due to ultraviolet radiation; L98.8 Other specified disorders of the skin and subcutaneous tissue; Z86.006 Personal history of melanoma in-situ | CPT/HCPCS: 17000; 17110; 99213 ==

== ENCOUNTER 2024-08-21 09:25 | Outpatient (CLI) | payer MEDICARE, SELFPAY ==
--- NOTE | 2024-08-21 09:44 | FL_ITS ---
WS: [email or web address] Exam: FL barium swallow modifd [id number] Date/Time of Exam: 08/21/2024 9:47 AM Reason For Exam: Other dysphagia Fluoroscopy time: 3min [id number] minutes # of spot films: 1 Modified barium swallow test is performed in conjunction with the speech therapy service. Oral pharyngeal phase of swallowing was unremarkable. The patient experienced penetration into the la ryngeal inlet when ingesting thin liquid barium. There is also minimal penetration identified when th e patient ingested nectar consistency liquid. The patient tolerated solid mixture of barium foodstuff s without difficulty. No aspiration was identified. There was some hypomotility of the distal esophag us noted when the patient ingested a barium tablet however the tablet was propelled into the stomach with an additional drink of thick liquid. FL/FL barium swallow modifd [id number] IMPRESSION: 1. Penetration into the laryngeal inlet when ingesting thin liquid barium solut ion. Slight penetration also noted when the patient ingested nectar consistency liquid. No aspiration was identified. 2. Hypomotility of the lower esophagus. A separate report with recommendations will follow from the speech therapy serv ice.
== END 2024-08-21 09:26 | disposition home or self-care (01) ==
PROVIDERS: Visit Provider Electrodiagnostic Medicine
DX: I63.9 Cerebral infarction, unspecified (principal); R93.3 Abnormal findings on diagnostic imaging of other parts of digestive tract
CPT/HCPCS: 74230; 92611

== ENCOUNTER 2024-08-29 06:00 | Outpatient (RCR) | payer MEDICARE, SELFPAY | END 2024-09-27 23:59 | disposition home or self-care (01) | LOC: SST 06:00 | PROVIDERS: Visit Provider Electrodiagnostic Medicine | DX: I63.9 Cerebral infarction, unspecified (principal) | CPT/HCPCS: 92507 ==

== ENCOUNTER → 2024-09-26 09:58 | Outpatient (BNVA) | payer MEDICARE, SELFPAY | PROVIDERS: Visit Provider Internal Medicine | DX: D35.2 Benign neoplasm of pituitary gland (principal); E22.0 Acromegaly and pituitary gigantism; R79.89 Other specified abnormal findings of blood chemistry; E11.9 Type 2 diabetes mellitus without complications; K80.20 Calculus of gallbladder without cholecystitis without obstruction; K59.00 Constipation, unspecified; I10 Essential (primary) hypertension | CPT/HCPCS: 99214 ==

== ENCOUNTER 2024-09-28 06:00 | Outpatient (RCR) | payer MEDICARE, SELFPAY | END 2024-10-22 23:59 | disposition home or self-care (01) | LOC: SST 06:00 | PROVIDERS: Visit Provider Electrodiagnostic Medicine | DX: I63.9 Cerebral infarction, unspecified (principal) | CPT/HCPCS: 92507 ==

== ENCOUNTER 2024-11-14 12:16 | Outpatient (CLI) | payer MEDICARE, SELFPAY ==
--- NOTE | 2024-11-14 12:40 | FL_ITS ---
WS: [email or web address] FL barium swallow [id number] REASON FOR EXAM: DYSPHAGIA FLUOROSCOPY TIME: 90 seconds # OF SPOT FILMS: Multiple TECHNIQUE: Patient was examined in the upright AP and lateral projections, prone KAY, and supine LPO positions. Swallowing of barium was monitored fluoroscopically and multiple rapid sequence spot films were obtai garret. FINDINGS: The cervical esophagus demonstrated normal motility and anatomy. There was no extrinsic mass effect. There is no laryngeal penetration or aspiration. The thoracic esophagus demonstrated infrequent periods of lower esophageal sphincter spasm with mild tertiary contractions and delayed emptying of the esophagus. There is a small hiatal hernia without significant reflux or Schatzki ring. There was no fixed narrowing of the distal esophagus. Ingested barium demonstrated rapid passage from the stomach and into the small bowel distal to the li gament of [place]. FL/FL barium swallow [id number] IMPRESSION: Normal cervical esophagus. Mild dysmotility of the thoracic esophagus.
--- NOTE | 2024-11-14 14:00 | USR_ITS ---
PROCEDURE INFORMATION: Exam: US Soft Tissue Head and Neck, Thyroid Exam date and time: 11/14/2024 1:09 PM Age: 84 years old Clinical indication: Condition or disease; Other: Goiter TECHNIQUE: Imaging protocol: Real-time ultrasound scan of the neck with image documentation. Exam focused on the thyroid. COMPARISON: CT angio headneck* [id number] 07/15/2024 12:17 AM FINDINGS: Right thyroid lobe: The right lobe of the thyroid gland measures 2.4 x 2.4 x 6.1 cm. There is a mixed cystic and solid nodule in the superior pole of the right lobe measuring 2.6 x 1.6 x 1.4 cm. There is a cystic nodule in the posterior aspect of the right lobe measuring 1.1 x 0.9 x 0.9 cm. Left thyroid lobe: The left lobe of the thyroid gland measures 1.7 x 2.7 x 5.2 cm. Multiple subcentimeter nodules in the left lobe which were not further assessed. Isthmus: The isthmus measures 0.3 cm in thickness. Soft tissues: There is a 6.6 x 2.3 x 7.1 cm isoechoic to fat mass in the subcutaneous anterior upper chest just inferior to the manubrium. US/US thyroid [id number] IMPRESSION: 1. There is a 2.6 cm mixed cystic and solid nodule with coarse calcifications and ill-defined borders in the right lobe of the thyroid gland consistent with a TI-RADS TR4 nodule. This is moderately suspicious and FNA is recommended for further assessment. 2. There is a 6.6 x 2.3 x 7.1 cm isoechoic to fat mass in the subcutaneous anterior upper chest just inferior to the manubrium. Lipoma?
== END 2024-11-14 12:17 | disposition home or self-care (01) ==
PROVIDERS: PCP Electrodiagnostic Medicine; Visit Provider Electrodiagnostic Medicine
DX: E04.2 Nontoxic multinodular goiter (principal); R14.0 Abdominal distension (gaseous); R93.89 Abnormal findings on diagnostic imaging of other specified body structures
CPT/HCPCS: 74220; 76536

== ENCOUNTER 2024-11-24 10:02 | Outpatient (CLI) | payer MEDICARE, SELFPAY ==
--- NOTE | 2024-11-24 10:21 | FL_ITS ---
WS: [email or web address] Exam: FL small bowel FT gastro [id number] Date/Time of Exam: 11/24/2024 10:46 AM Reason For Exam: ABDOMINAL DISTENSION Fluoroscopy time: Preliminary abdominal survey shows retained barium in numerous colonic diverticuli. Minutes # of spot films: Barium courses through the small bowel without obstruction. Several diverticuli of the duodenum are n oted. The mucosal pattern of the duodenum, jejunum and ileum is otherwise unremarkable. No evidence o f bowel loop herniation or displacement. Barium noted in the colon at slightly over 2 hours post donna um ingestion. Numerous diverticuli of the lower descending and sigmoid colon noted. Spot compression views of the terminal ileum are unremarkable. IMPRESSION1. Several duodenal diverticuli and colonic diverticuli. 2. No evidence of small bowel obstruction. Grossly normal small bowel transit time.
== END 2024-11-24 10:03 | disposition home or self-care (01) ==
LOC: RAD 10:05
PROVIDERS: PCP Electrodiagnostic Medicine; Visit Provider Electrodiagnostic Medicine
DX: E04.9 Nontoxic goiter, unspecified (principal); K57.10 Diverticulosis of small intestine without perforation or abscess without bleeding; K57.30 Diverticulosis of large intestine without perforation or abscess without bleeding
CPT/HCPCS: 74250

== ENCOUNTER → 2024-12-24 10:17 | Outpatient (BNVA) | payer MEDICARE, SELFPAY | PROVIDERS: PCP Electrodiagnostic Medicine; Visit Provider Internal Medicine | DX: E11.9 Type 2 diabetes mellitus without complications (principal); R79.89 Other specified abnormal findings of blood chemistry; D35.2 Benign neoplasm of pituitary gland; E22.0 Acromegaly and pituitary gigantism | CPT/HCPCS: 36415; 83036; 83516; 84305; 84439; 86376; 86800 ==

== ENCOUNTER 2025-01-05 06:42 | Outpatient (CLI) | payer MEDICARE, SELFPAY ==
--- NOTE | 2025-01-05 07:00 | NM_ITS ---
WS: [id number] NUCLEAR MEDICINE 24 HOUR I-123 THYROID UPTAKE INDICATION: Nontoxic multinodular goiter TECHNIQUE: I-123 24 HOUR THYROID UPTAKE WITH PLANAR IMAGING. 160.5 UCI PETRONA 123 COMPARISON: Ultrasound 11/14/2024 FINDINGS: Normal 24-hour thyroid uptake 15.75% Multinodular patchy thyroid uptake bilaterally compatible with history of multinodular goiter. Focal increased activity in a RIGHT upper thyroid nodule corresponding to the previously described TR 4 nodule on the recent ultrasound in the superior pole measuring 2.6 x 1.4 x 1.6 cm on the ultrasound NORMAL 24H THRYOID UPTAKE 8-35% NM/NM thyroid uptake multi [id number] IMPRESSION: Normal 24-hour uptake 15.75%
== END 2025-01-05 06:43 | disposition home or self-care (01) ==
PROVIDERS: PCP Electrodiagnostic Medicine; Visit Provider Specialist
DX: E04.2 Nontoxic multinodular goiter (principal)
CPT/HCPCS: 78014; A9516

== ENCOUNTER → 2025-02-12 14:06 | Outpatient (BNVA) | payer MEDICARE, SELFPAY | PROVIDERS: PCP Electrodiagnostic Medicine; Visit Provider Nurse Practitioner Family | DX: L98.8 Other specified disorders of the skin and subcutaneous tissue (principal); D17.1 Benign lipomatous neoplasm of skin and subcutaneous tissue of trunk; Z08 Encounter for follow-up examination after completed treatment for malignant neoplasm; Z86.006 Personal history of melanoma in-situ; L57.0 Actinic keratosis | CPT/HCPCS: 17000; 99213 ==

== ENCOUNTER 2025-03-05 06:10 | Outpatient (CLI) | payer MEDICARE, SELFPAY ==
[2025-03-05 08:04] LABS: Free T4 Free Thyroxine 1.08 ng/dL (0.82-1.77); Thyroid Stimulating Hormone 0.12 uIU/mL (0.27-4.20)
[2025-03-06 07:04] LABS: T3 Total 109 ng/dL (76-181)
== END 2025-03-05 06:11 | disposition home or self-care (01) ==
PROVIDERS: PCP Electrodiagnostic Medicine; Visit Provider Internal Medicine
DX: E11.9 Type 2 diabetes mellitus without complications (principal); D35.2 Benign neoplasm of pituitary gland; E22.0 Acromegaly and pituitary gigantism; K80.20 Calculus of gallbladder without cholecystitis without obstruction; K59.00 Constipation, unspecified; I10 Essential (primary) hypertension; I63.9 Cerebral infarction, unspecified; R79.89 Other specified abnormal findings of blood chemistry
CPT/HCPCS: 36415; 84439; 84443; 84480

== ENCOUNTER → 2025-03-17 07:09 | Outpatient (BNVA) | payer MEDICARE, SELFPAY | PROVIDERS: PCP Electrodiagnostic Medicine; Visit Provider Internal Medicine | DX: E11.9 Type 2 diabetes mellitus without complications (principal); D35.2 Benign neoplasm of pituitary gland; I10 Essential (primary) hypertension; K59.00 Constipation, unspecified; R79.89 Other specified abnormal findings of blood chemistry; E22.0 Acromegaly and pituitary gigantism | CPT/HCPCS: 99214 ==

== ENCOUNTER 2025-05-11 07:32 | Outpatient (CLI) | payer MEDICARE, SELFPAY ==
--- NOTE | 2025-05-11 07:42 | US_ITS ---
WS: [id number] . ULTRASOUND THYROID TECHNIQUE: Ultrasound of the thyroid. CLINICAL INFORMATION: NONTOXIC SINGLE THYROID NODULE COMPARISON: 11/14/2024 FINDINGS: Thyroid: Right and left thyroid lobes are normal in size with heterogeneous echotexture Complex 2.5 x 1.3 cm RIGHT thyroid nodule with coarse calcifications is unchanged. Stable complex cystic nodule measuring 1.0 x 0.8 x 0.6 cm in the superior RIGHT thyroid is unchanged Additional 1.0 x 1.0 x 0.8 cm cystic nodule posterior inferior RIGHT thyroid. No suspicious LEFT thyroid nodules. Stable suprasternal lipoma Right thyroid lobe: 3.8 cm x 2.3 cm x 2.4 cm Left thyroid lobe: 3.9 cm x 1.5 cm x 2.0 cm. Isthmus: 0.3 mm. Cervical lymphadenopathy: None. US/US thyroid 85220 IMPRESSION: 1. Previously described 2.5 x 1.3 cm mixed cystic and solid nodule with coarse calcifications in the RIGHT thyroid is unchanged compatible with TI-RADS 4 nod ule. Recommend continued surveillance versus further evaluation with FNA. 2. Stable suprasternal lipoma
[2025-05-11 10:17] LABS: Estmated Average Glucose 146; Hemoglobin A1C 6.7 % (4.0-6.0)
[2025-05-11 10:25] LABS: Creatinine Urine, Random 140 mg/dL (39-259)
[2025-05-11 10:26] LABS: Alanine Aminotransferase 7 U/L (0-41); Albumin Level 4.2 g/dL (3.5-5.2); Alkaline Phosphatase 55 U/L (40-130); Anion Gap 14.3 (5-19); Aspartate Amino Transferase 13 U/L (0-40); Blood Urea Nitrogen 15 mg/dL (8-23); Calcium 10.5 mg/dL (8.5-10.5); Carbon Dioxide 28 mmol/L (22-29); Chloride 100 mmol/L (98-107); Cholesterol 192 mg/dL (0-200); Globulin 2.8 g/dL (1.3-4.6); Glucose 99 mg/dL (65-115); HDL Cholesterol 53 mg/dL (60-100); Osmolality Calculated 287 mOsm/kg (285-295); Potassium 4.3 mmol/L (3.5-5.1); Sodium 138 mmol/L (136-145); Total Protein 7.0 g/dL (6.6-8.7); Triglycerides 266 mg/dL (0-150)
[2025-05-11 10:26] LABS: Microalbum Creatinine Ratio Ur 157 mg/dL (0-20)
== END 2025-05-11 07:33 | disposition home or self-care (01) ==
PROVIDERS: Family Provider Internal Medicine; PCP Electrodiagnostic Medicine; Visit Provider Electrodiagnostic Medicine
DX: E04.1 Nontoxic single thyroid nodule (principal); E11.9 Type 2 diabetes mellitus without complications; D17.79 Benign lipomatous neoplasm of other sites
CPT/HCPCS: 36415; 76536; 80053; 80061; 82044; 83036; 84305

== ENCOUNTER → 2025-05-26 09:15 | Outpatient (BNVA) | payer MEDICARE, SELFPAY | PROVIDERS: PCP Electrodiagnostic Medicine; Visit Provider Internal Medicine | DX: I10 Essential (primary) hypertension (principal); E11.9 Type 2 diabetes mellitus without complications; I63.9 Cerebral infarction, unspecified; K59.00 Constipation, unspecified; R79.89 Other specified abnormal findings of blood chemistry; K80.20 Calculus of gallbladder without cholecystitis without obstruction; D35.2 Benign neoplasm of pituitary gland; E22.0 Acromegaly and pituitary gigantism | CPT/HCPCS: 36415; 84439; 84443; 84480; 99214 ==

== ENCOUNTER 2025-06-04 06:39 | Emergency (ER) | payer MEDICARE, SELFPAY ==
--- OUTSIDE RECORDS SUMMARY | 2025-02-26 05:40 | XMS_ITS ---
Author Organization [employer] [employer] Address [address] [place] [address] Care Team Providers Care Consulting Marine Engineer Name Role Phone David Soto Primary Care Provider ALCIDES Black [phone] REASON FOR VISIT w/ ua/pvr Medications Medication SIG (Take, Route, Frequency, Duration) Notes Start Date End Date Status Lovastatin 40 MG 1 tablet with the evening meal Orally Once a day 08/13/2023 Active metFORMIN HCl 500 MG 1 tablet with a anayeli l Orally twice a day 08/13/2023 Active Lisinopril 40 MG 1 tablet Orally Once a day 08/13/2023 Not-Taking Amoxicillin 875 MG 1 tablet Orally Twic e a day 08/13/2023 Not-Taking Metamucil Active Metoprolol Tartrate 100 MG 1 tablet with food Orally Twice a day 08/13/2023 Active Omeprazole 40 MG 1 capsule 30 minutes before morning meal Orally Once a day 08/13/2023 Active Encounters Encounter Location Date Provider Diagnosis [facility] [address] [place] [address] 02/26/2025 ALCIDES KHAN History of bladder cancer Z85.51 ; BPH loc w urin obs/LUTS N40.1 ; Urgency of urination R39.15 ; Gross hematuria R31.0 ; Prostate cancer screening Z12.5 and Status post transurethral resection of prostate Z90.79 Assessments Encounter Date Diagnosis (ICD Code) Assessment Notes Treatment Notes Treatment Clinical Notes Section Notes 02/26/2025 History of bladder cancer (ICD-10 - Z85.51) 84 yo male with history of bladder cancer, BPH s/p TURP. 02/26/2025 BPH loc w urin obs/LUTS (ICD-10 - N40.1) 84 yo male with history of bladder cancer, BPH s/p TURP. 02/26/2025 Urgency of urination (ICD-10 - R39.15) 84 yo male with history of bladder cancer, BPH s/p TURP. 02/26/2025 Gross hematuria (ICD-10 - R31.0) 84 yo male with history of bladder cancer, BPH s/p TURP. 02/26/2025 Prostate cancer screening (ICD-10 - Z12.5) 84 yo male with history of bladder cancer, BPH s/p TURP. 02/26/2025 Status post transurethral resection of prostate (ICD-10 - Z90.79) 84 yo male with history of bladder cancer, BPH s/p TURP. Plan Of Treatment Pending Test Test Name Order Date Urinalysis, Routine 02/26/2025 Progress Notes * Asif BENITES DDOB:1939 (84 yo M)Acc No.[id number]:02/26/2025 Patient: Krystal Asif JACK D Provider: Gene KHAN MD :1940 A ge:84 Y S ex:Male Date:02/26/2025 Address:[address] [place], [place] [id number] Pcp:David Soto Subjective: * Chief Complaints: * 1 . W/ ua/pvr. * HPI: M igrated HPI: The patient is an 84-yo male, referred by Dr. Rubin for an [...] failure. He is a former smoker. PVR 9. He is having intermittent gross hematuria. Cysto on 02/25/24negative for cancer recurrence. Here today for 1yr surveillance Cystoscopy. * Medical History: * Medications: T aking Metamucil , Taking Omeprazole 40 MG Capsule Delayed [...] Tablet 1 tablet Orally Twice a day Objective: * Vitals: Assessment: * Assessment: 1. B PH loc w urin obs/LUTS - N40.1 (Primary) 2 . H istory of bladder cancer - Z85.51 3 . U rgency of urination - R39.15 4 . G ross hematuria - R31.0 5 . P rostate cancer screening - Z12.5 6 . S tatus post transurethral resection of prostate - Z90.79 84 yo male with history of b ladder cancer, BPH s/p TURP. Plan: * Treatment: * Procedure Codes: 8 1003 URINALYSIS, AUTO, W/O SCOPE * Billing Information: * Visit Code: * Procedure Codes: 00457 URINALYSIS, AUTO, W/O SCOPE. * Electronic signature of AUST IN MD BILL on 06/04/2025 at 06:42 AM CDT Sign off status: Pending * Provider: Gene KHAN MD Date: 02/26/2025 Generated for Sindi guy/Qing/Estelleitting on: 0 06/04/2025 06:42 AM CDT History and Physical Notes * HPI (History of Present Illness) Category Sub-Category Detail Notes Category Not es Migrated HPI The patient is an 84-yo male, referred by Dr. Rubin for an [...] failure. He is a former smoker. PVR 9. He is having intermittent gross hematuria. Cysto on 02/25/24 negative for cancer recurrence. Here today for 1yr surveillance Cystoscopy
[2025-06-04 06:41] VITALS: BP 170/82; PULSE 73; RESP 16; TEMP 36.8; O2SAT 94; BMI 34.0
--- OUTSIDE RECORDS SUMMARY | 2025-06-04 06:42 | XMS_ITS | Encounter Summary ---
Author Organization [facility] Address [address] [place] [address] Care Team Providers Care Train Inspector Name Role Phone Sara Bermudez MD Primary Care Provider Encounter Details Date Type Department Care Team (Latest Contact Info) Description 08/22/1999 Outpatient Historical [facility] Steve Restrepo MD NO ADDRESS ON FILE Hypersomnia with sleep apnea, unspecified (Primary Dx) Social History Tobacco Use Types Packs/Day Years Used Date Smoking Tobacco: Never Assessed Sex and Gender Information Value Date Recorded Sex Assigned at Not on file 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
--- OUTSIDE RECORDS SUMMARY | 2025-06-04 06:42 | XMS_ITS | Encounter Summary ---
Author Organization [facility] Address [address] [place] [address] Care Team Providers Care Corn Lab Technician Name Role Phone Sara Bermudez MD Primary Care Provider Encounter Details Date Type Department Care Team (Latest Contact Info) Description 08/22/1999 Outpatient Historical [facility] Imaging Services-Don Zabala [place] [address] [place] [address] Steve Restrepo MD NO ADDRESS ON FILE Cervicalgia (Primary Dx) Social History Tobacco Use Types Packs/Day Years Used Date Smoking Tobacco: Never Assessed Sex and Gender Information Value Date Recorded Sex Assigned at Not on file Legal Sex Male 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
--- OUTSIDE RECORDS SUMMARY | 2025-06-04 06:42 | XMS_ITS | Encounter Summary ---
Author Organization [employer] Address [address] [place] [address] Care Team Providers Care Watch And Clock Repair Clerk Name Role Phone Sara Bermudez MD Primary Care Provider Encounter Details Date Type Department Care Team (Latest Contact Info) Description 12/24/1998 Outpatient Historical HIS MD Sarthak CANO Arlen D NO ADDRESS ON FILE Personal history of malignant melanoma of skin (Primary Dx); Pain in limb Social History Tobacco Use Types Packs/Day Years Used Date Smoking Tobacco: Never Assessed Sex and Gender Information Value Date Recorded Sex Assigned at Not on file Legal Sex Male 6:12 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
--- OUTSIDE RECORDS SUMMARY | 2025-06-04 06:42 | XMS_ITS | Encounter Summary ---
Author Organization [facility] Address [address] 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
--- OUTSIDE RECORDS SUMMARY | 2025-06-04 06:42 | XMS_ITS | Encounter Summary ---
Author Organization [facility] Address [address] [place] [address] Care Team Providers Care Brokerage Branch Manager Name Role Phone Sara Bermudez MD Primary Care Provider Encounter Details Date Type Department Care Team (Latest Contact Info) Description 05/03/2000 Outpatient Historical [facility] Endocrinology-Don Zabala [place] [address] [place] [phone] Annika Wood MD [address] [place] [address] Acromegaly and gigantism (CMS/HCC) (Primary Dx) Social History Tobacco Use Types Packs/Day Years Used Date Smoking Tobacco: Never Assessed Sex and Gender Information Value Date Recorded Sex Assigned at Not on file 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
--- OUTSIDE RECORDS SUMMARY | 2025-06-04 06:42 | XMS_ITS | Encounter Summary ---
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
--- OUTSIDE RECORDS SUMMARY | 2025-06-04 06:42 | XMS_ITS | Encounter Summary ---
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
--- OUTSIDE RECORDS SUMMARY | 2025-06-04 06:42 | XMS_ITS | Patient Health Record ---
Author Organization [facility] Address [address] [place] [address] Care Team Providers Care Director Of Housing Name Role Phone David Soto Primary Care Provider ALCIDES Black Unavailable [phone] Allergies No Known Allergies Reason For Referral No Information Medications Medication SIG (Take, Route, Frequency, Duration) Notes Start Date End Date Status Metoprolol Tartrate 100 MG 1 tablet with food Orally Twice a day 08/13/2023 Active Omeprazole 40 MG 1 capsule 30 minutes before morning meal Orally Once a day 08/13/2023 Active Lovastatin 40 MG 1 tablet with the evening meal Orally Once a day 08/13/2023 Active metFORMIN HCl 500 MG 1 tablet with a anayeli l Orally twice a day 08/13/2023 Active Lisinopril 40 MG 1 tablet Orally Once a day 08/13/2023 Not-Taking Amoxicillin 875 MG 1 tablet Orally Twic e a day 08/13/2023 Not-Taking Metamucil Active Social History Tobacco Use: Social History Observation Description Date Details (start date - stop date) Former Smoker NA - NA Tobacco Use/Smoking Question Answer Notes Tobacco use: former smoker How long has it been since you last smoked? > 10 years Problems Problem Type SNOMED Code ICD Code Onset Dates Problem Status W/U Status Risk Notes Problem Gross hematuria (480966591) Gross hematuria (R31.0) Active confirmed Problem Urgent desire to urinate (01448068) Urgency of urination (R39.15) Active confirmed Problem Elevated PSA (347840777) Elevated prostate specific antigen [PSA] (R97.20) Active confirmed Problem History of transurethral resection of prostate (661278121) Status post transurethral resection of prostate (Z90.79) Active confirmed Problem Personal history of primary malignant neoplasm of urinary bladder (325736751) History of bladder cancer (Z85.51) Active confirmed Problem Screening for malignant neoplasm of prostate (629321128) Prostate cancer screening (Z12.5) Active confirmed Problem Malignant tumor of urinary bladder (950007456) Malignant neoplasm of urinary bladder, unspecified site (C67.9) Active confirmed Problem Benign prostatic hypertrophy with outflow obstruction (891912306) BPH loc w urin obs/LUTS (N40.1) Active confirmed Assessments Encounter Date Diagnosis (ICD Code) Assessment Notes Treatment Notes Treatment Clinical Notes Section Notes 02/26/2025 84 yo mal e with history of bladder cancer, BPH s/p TURP. Plan Of Treatment Pending Test Test Name Order Date PSA, total (cpt 29464) 08/13/2023 Insurance Providers Payer Name Payer Address Payer Phone Subscriber Number Group Number Insured Name Patient Relationship to Insured Coverage Start Date Coverage End Date [place] [address] [place], [place] [id number] Asif Mcmillan Self - patient is the insured Medical (General) History Medical History History ICD Code hypertension bladder infections hx bladder cancer hx gross hematuria acromegaly BPH with LUTS choledocholithiasis with obstruction hx melanoma hx thyroid nodule hyperlipidemia pituitary adenoma prostatic hemorrhage diabetes vitamin B 12 deficiency lip cancer Surgical History Surgery Date(Month/Year) TURP 2008 bladder cancer surgery 2011 hx back surgery carpal tunnel cholecystectomy ERCP knee replacement hernia repair melanoma excision right ear transsphenoidal hypophysectomy Hospitalization History Reason Date(Month/Year) surgery
--- OUTSIDE RECORDS SUMMARY | 2025-06-04 06:42 | XMS_ITS | Encounter Summary ---
Author Organization [facility] Address [address] Schofieldn: Epic Prelude [place] [address] Care Team Providers Care Pick Up Driver Name Role Phone Sara Bermudez MD Primary Care Provider Encounter Details Date Type Department Care Team (Late st Contact Info) Description 05/11/2000 Outpatient Historical Arik John MD [address] [facility] [address] [place] [address] Social History Tobacco Use Types Packs/Day Years Used Date Smoking Tobacco: Never Assessed Sex and Gender Information Value Date Recorded Sex Assigned at Not on file Legal Sex Male 6:12 AM CHEMIST ENZYMES Gender Identity Not on file Sexual Orientation Not on file documented as of this encounter Plan of Treatment Not on file documented as of this encounter Visit Diagnoses Not on filedocumented in this encounter Care Teams Pick Up Driver Relationship Specialty Start Date End Date Sara Bermudez MD [address] [place] [address] PCP - General Family Practice 03/08/20 documented as of this encounter
--- OUTSIDE RECORDS SUMMARY | 2025-06-04 06:42 | XMS_ITS ---
Author Organization Unknown Problems Date Problem Result OnSetDate Icd10 SnomedCode Severity Cu stom 12/25/2024 12:00:00 AM Ascending cholangitis 12/25/2024 12:00:00 AM [id number] 12/25/2024 12:00:00 AM Aneurysm of thoracic aorta 12/25/2024 12:00:00 AM [id number] 12/25/2024 12:00:00 AM Vitamin B deficiency 12/25/2024 12:00:00 AM [id number] 12/25/2024 12:00:00 AM Cerebrovascular accident 12/25/2024 12:00:00 AM [id number] 10/28/2024 12:00:00 AM Goiter 10/28/2024 12:00:00 AM [id number] 10/28/2024 12:00:00 AM Mass of soft tissue 10/28/2024 12:00:00 AM [id number] 12/25/2024 12:00:00 AM Pituitary adenoma 12/25/2024 12:00:00 AM [id number] 12/25/2024 12:00:00 AM Gallstone pancreatitis 12/25/2024 12:00:00 AM [id number] 04/21/2025 12:00:00 AM Abdominal bloating 04/21/2025 12:00:00 AM [id number] 05/24/2025 12:00:00 AM Ventral incisional hernia 05/24/2025 12:00:00 AM [id number] 12/25/2024 12:00:00 AM Obesity 12/25/2024 12:00:00 AM [id number] 12/25/2024 12:00:00 AM Acromegaly 12/25/2024 12:00:00 AM [id number] 03/18/2025 12:00:00 AM Thyroid nodule 03/18/2025 12:00:00 AM [id number] 07/22/2024 12:00:00 AM Cerebrovascular accident 07/22/2024 12:00:00 AM [id number]
--- OUTSIDE RECORDS SUMMARY | 2025-06-04 06:42 | XMS_ITS | Encounter Summary ---
Author Organization [facility] Address [address] 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
--- OUTSIDE RECORDS SUMMARY | 2025-06-04 06:42 | XMS_ITS | Encounter Summary ---
Author Organization [facility] Address [address] 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
--- OUTSIDE RECORDS SUMMARY | 2025-06-04 06:42 | XMS_ITS | Encounter Summary ---
Author Organization [facility] Address [address] [place] [address] Care Team Providers Care Trend Investigator Name Role Phone David Soto DO Primary Care Provider [phone] Encounter Details Date Type Department Care Team (Late st Contact Info) Description 06/02/2025 External Device Data ST[facility] ABSTRACTION Provider, Abstract NO ADDRESS ON FILE Social History Tobacco Use Types Packs/Day Years Used Date Smoking Tobacco: Never Smokeless Tobacco: Never Alcohol Use Standard Drinks/Week Comments No 0 (1 standard drink = 0.6 oz pur e alcohol) Sex and Gender Information Value Date Recorded Sex Assigned at Not on file Legal Sex Male 12:58 AM KELP CUTTER Gender Identity Not on file Sexual Orientation Not on file documented as of this encounter Plan of Treatment Upcoming Encounters Date Type Department Care Team (Late st Contact Info) Description 07/31/2025 9:00 AM CDT Office Visit [facility] Gastroenterology- [place] [address] [address] Se Villagran FNP [address] [address] documented as of this encounter Visit Diagnoses Not on filedocumented in this encounter Care Teams Trend Investigator Relationship Specialty Start Date End Date David Soto DO PCP - General Family Practice 04/03/22 documented as of this encounter
--- OUTSIDE RECORDS SUMMARY | 2025-06-04 06:43 | XMS_ITS | Encounter Summary ---
Author Organization [employer] Address [address] [place] [address] Care Team Providers Care Director Community Health Nursing Name Role Phone Sara Bermudez MD Primary Care Provider Encounter Details Date Type Department Care Team (Late st Contact Info) Description 06/25/2000 Outpatient Historical [facility] Annika Wood MD [address] [place] [address] Acromegaly and gigantism (CMS/HCC) (Primary Dx) Social History Tobacco Use Types Packs/Day Years Used Date Smoking Tobacco: Never Assessed Sex and Gender Information Value Date Recorded Sex Assigned at Not on file 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
--- OUTSIDE RECORDS SUMMARY | 2025-06-04 06:43 | XMS_ITS | Encounter Summary ---
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
--- OUTSIDE RECORDS SUMMARY | 2025-06-04 06:43 | XMS_ITS | Encounter Summary ---
Author Organization [facility] Address [address] 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
--- OUTSIDE RECORDS SUMMARY | 2025-06-04 06:43 | XMS_ITS | Encounter Summary ---
Author Organization [facility] Address [address] [place] [address] Care Team Providers Care Physician Specialist Name Role Phone Sara Bermudez MD Primary Care Provider Encounter Details Date Type Department Care Team (Latest Contact Info) Description 12/14/2005 Outpatient Historical [facility] [address] [place] [address] Eleuterio Keys MD [address] [place] [address] HYPERTENSION NOS (Primary Dx); HYPERLIPIDEMIA NEC/NOS; HYPERTROPHY PROSTATE W/O OBST; IDIO PERIPH NEURPTHY NOS Social History Tobacco Use Types Packs/Day Years Used Date Smoking Tobacco: Never Assessed Sex and Gender Information Value Date Recorded Sex Assigned at Not on file 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 Gender Identity Not on file Sexual Orientation Not on file documented as of this encounter Plan of Treatment Not on file documented as of this encounter Visit Diagnoses Diagnosis Unspecified essential hypertension- Primary Other and unspecified hyperlipidemia Hypertrophy of prostate without urinary obstruction and other lower urinary tract symptoms (LUTS) Unspecified hereditary and idiopathic peripheral neuropathy documented in this encounter Care Teams Physician Specialist Relationship Specialty Start Date End Date Sara Bermudez MD [address] [place] [address] [place] [phone] PCP - General Family Practice 03/08/20 documented as of this encounter
--- OUTSIDE RECORDS SUMMARY | 2025-06-04 06:43 | XMS_ITS | Clinical Summary ---
Author Organization [facility] Address [address] [place] [address] Phone Care Team Providers Care System Safety Engineer Name Role Phone Sara Bermudez MD Primary Care Provider Allergies No known active allergies Medications metFORMIN (GLUCOPHAGE) 500 mg Oral tablet Take 500 mg by mouth daily. 04/09/2010 Active quinapril (ACCUPRIL) 10 mg Oral tablet Take 10 mg by mouth daily. Active lovastatin (MEVACOR) 40 mg Oral tablet Take 40 mg by mouth daily. 04/09/2010 Active metoprolol tartrate (LOPRESSOR) 25 mg Oral tablet Take 25 mg by mouth daily. Active omeprazole (PRILOSEC) 20 mg Oral CpDR Take 20 mg by mouth daily. Active sennosides (SENOKOT) 8.6 mg Oral tablet Take 8.6 mg by mouth daily. Active Active Problems Problem Noted Date Diagnosed Date Severe sepsis without septic shock 03/10/2020 Ascending cholangitis 03/08/2020 Thrombocytopenia 03/08/2020 Type 2 diabetes mellitus, wi thout long-term current use of insulin 03/08/2020 Hypoxemia 03/08/2020 Benign obstructive jaundice 07/12/2013 Gallstone pancreatitis 04/10/2010 Essential hypertension 04/10/2010 Dyslipidemia 04/10/2010 Choledocholithiasis 04/10/2010 Elevated liver enzymes Immunizations Immunization Administration Dates Next Due Influenza Seasonal Unspecified Formulation IM Social History Tobacco Use Types Packs/Day Years Used Date Smoking Tobacco: Never Alcohol Use Standard Drinks/Week Comments No 0 (1 standard drink = 0.6 oz pur e alcohol) Sex and Gender Information Value Date Recorded Sex Assigned at Not on file 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 Gender Identity Not on file Sexual Orientation Not on file Last Filed Vital Signs Vital Sign Reading Time Taken Comments Blood Pressure 153/75 03/13/2020 12:45 PM CDT Pulse 87 03/13/2020 12:45 PM CDT Temperature 37.1 C (98.7 F) 03/13/2020 12:45 PM CDT Respiratory Rate 16 03/13/2020 12:4 5 PM CDT Oxygen Saturation 91% 03/13/2020 12: 45 PM CDT Inhaled Oxygen Concentration - - Weight 96.6 kg (212 lb 15.4 oz) 03/13/2020 5:26 AM CDT Height 172.7 cm (5' 8 ) 03/11/2020 4:37 AM CDT Body Mass Index 32.38 03/11/2020 4:37 AM CDT Plan of Treatment Health Maintenance Due Date Last Done Comments DIABETES ANNUAL FOOT EXAM 1957 DIABETES ANNUAL RETINAL EXAM 1957 DIABETES MICROALBUMIN ANNUAL SCREEN 1957 LDL CHOLESTEROL ANNUAL 1957 DTAP/TDAP/TD VACCINES (1 - Tdap) 1958 PNEUMOCOCCAL VACCINE 50+ YEARS (1 of 2 - PCV) 09/07/19 58 ZOSTER VACCINE (1 of 2) 1989 DIABETES HBA1C Q 6 MONTHS 11/03/2000 05/03/2000 RSV VACCINE (60+ or ) (1 - 1-dose 75+ series) 2014 INFLUENZA VACCINE (#1) 2025 08/11/2012 Insurance MEDICARE PART A AND B [employer] [place] [id number] [facility] Medicare Part D Advance Directives For more information, please contact: [phone] * Full Code (Latest Code Status on File) Date Activated Date Inactivated Comments 03/08/2020 9:11 AM 03/13/2020 3:53 PM * Full Code Date Activated Date Inactivated Comments 07/12/2013 7:54 AM 07/14/2013 7:38 PM * Full Code Date Activated Date Inactivated Comments 04/11/2010 11:51 AM 04/12/2010 1:20 PM * Full Code Date Activated Date Inactivated Comments 04/09/2010 8:42 PM 04/11/2010 11:51 AM Care Teams System Safety Engineer Relationship Specialty Start Date End Date Sara Bermudez MD [address] [address] PCP - General Family Practice 03/08/20
--- OUTSIDE RECORDS SUMMARY | 2025-06-04 06:43 | XMS_ITS | Encounter Summary ---
Author Organization [facility] Address [address] [place] [address] Care Team Providers Care Psychiatry Adult Physician Name Role Phone Sara Bermudez MD Primary Care Provider Encounter Details Date Type Department Care Team (Latest Contact Info) Description 06/25/2000 Outpatient Historical [facility] Endocrinology-[facility] [address] [place] [address] Annika Wood MD [address] [place] [address] Acromegaly and gigantism (CMS/HCC) (Primary Dx) Social History Tobacco Use Types Packs/Day Years Used Date Smoking Tobacco: Never Assessed Sex and Gender Information Value Date Recorded Sex Assigned at Not on file 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
--- OUTSIDE RECORDS SUMMARY | 2025-06-04 06:43 | XMS_ITS | Clinical Summary ---
Author Organization [facility] Address [address] [facility] Attn: Epic Prelude ADT [place] [address] Care Team Providers Care Ground Mixer Name Role Phone David Soto DO Primary Care Provider [phone] Allergies No known active allergies Medications metoprolol tartrate (LOPRESSOR) 25 mg tablet Take 25 mg by mouth daily. Active sennosides-docu sate sodium (SENNA-S) 8.6-50 mg tablet Take 2 Tablets by mouth 2 times daily. 2 Active mineral oil (MURI-LUBE) Oil Take by mouth. PT takes 2 or 3 spoonfuls every night Active aspirin (ECOTRIN EC) 81 mg Tablet, Delayed Release (E.C.) Take 81 mg by mouth daily. Active acetaminophen (TYLENOL) 325 mg tablet Take 325 mg by mouth daily. Pt takes 2 tablets every morning Active methIMAzole (TAPAZOLE) 5 mg tablet TAKE 1/2 (ONE-HALF) TABLET BY MOUTH ONCE DAILY FOR 30 DAYS Active clopidogreL (PLAVIX) 75 mg Tablet Take 75 mg by mouth daily. Active losartan (COZAAR) 50 mg tablet Take 50 mg by mouth daily. Active famotidine (PEPCID) 40 mg tablet Take 40 mg by mouth daily in the morning. Active lovastatin (MEVACOR) 40 mg tablet Take 40 mg by mouth daily. 5 Active CYANOCOBALAMIN, VITAMIN B-12, ORAL Take by mouth. PT takes Vitamin B 12 injection once a month Active lubiprostone (AMITIZA) 24 mcg Capsule Take 1 Capsule (24 mcg) by mouth 2 times daily with meals. 60 Capsule 5 Active Active Problems Problem Noted Date Diagnosed Date Pancreatitis due to common bile duct stone 03/30 Hypertension 03/30/2022 Severe sepsis without septic shock 03/10/2020 Ascending cholangitis 03/08/2020 Type 2 diabetes mellitus, wi thout long-term current use of insulin 03/08/2020 Thrombocytopenia 03/08/2020 Hypoxemia 03/08/2020 Benign obstructive jaundice 07/12/2013 Dyslipidemia 04/10/2010 Essential hypertension 04/10/2010 Choledocholithiasis 04/10/2010 Gallstone pancreatitis 04/10/2010 Elevated liver enzymes Encounters Date Type Department Care Team Description 06/02/2025 External Device Data [facility] ABSTRACTION Provider, Abstract 05/13/2025 External Device Data [facility] ABSTRACTION Provider, Abstract 05/12/2025 External Device Data [facility] ABSTRACTION Provider, Abstract 05/05/2025 External Device Data [facility] ABSTRACTION Provider, Abstract 05/05/2025 External Device Data [facility] ABSTRACTION Provider, Abstract 05/05/2025 External Device Data [facility] ABSTRACTION Provider, Abstract 04/30/2025 9:30 AM CDT Office Visit [facility] Gastroenterology[address] [address] Wilton Moncada MD Abdominal distention, non-gaseous (Primary Dx); Constipation, unspecified constipation type from Last 3 Months Immunizations Immunization Administration Dates Next Due Influenza Seasonal Unspecified Formulation IM Social History Tobacco Use Types Packs/Day Years Used Date Smoking Tobacco: Never Smokeless Tobacco: Never Alcohol Use Standard Drinks/Week Comments No 0 (1 standard drink = 0.6 oz pur e alcohol) Sex and Gender Information Value Date Recorded Sex Assigned at Not on file Legal Sex Male 12:58 AM CRIPPLE CHASER Gender Identity Not on file Sexual Orientation Not on file Last Filed Vital Signs Vital Sign Reading Time Taken Comments Blood Pressure 160/74 04/30/2025 9:24 AM CDT Pulse 56 04/30/2025 9:24 AM CDT Temperature 36.7 C (98 F) 04/01/2022 4:00 PM CDT Respiratory Rate 18 04/01/2022 4:00 PM CDT Oxygen Saturation 95% 04/01/2022 4:00 PM CDT Inhaled Oxygen Concentration - - Weight 100.1 kg (220 lb 9.6 oz) 04/30/2025 9:24 AM CDT Height 172.7 cm (5' 8 ) 04/30/2025 9:24 AM CDT Body Mass Index 33.54 04/30/2025 9:24 AM CDT Plan of Treatment Upcoming Encounters Date Type Department Care Team (Late st Contact Info) Description 07/31/2025 9:00 AM CDT Office Visit [facility] Gastroenterology- [place] [address] [place] [address] Se Villagran, ZACARIAS [address] [place] [address] [place] [address] Health Maintenance Due Date Last Done Comments DIABETES ANNUAL FOOT EXAM 1957 DIABETES ANNUAL RETINAL EXAM 1957 DIABETES MICROALBUMIN ANNUAL SCREEN 1957 LDL CHOLESTEROL ANNUAL 1957 DTAP/TDAP/TD VACCINES (1 - Tdap) 1958 ZOSTER VACCINE (1 of 2) 1989 RSV VACCINE (60+ or ) (1 - 1-dose 75+ series) 2014 COVID-19 Vaccine ( - 2023-2 5 season) 2024 10/06/2021, 03/03/2021, 02/03/2021 [place] Preventative Visit/Annual Wellness Visit 10/29/2024 INFLUENZA VACCINE (#1) 2025 , 08/09/2023, 10/04/2022, Additional history exists DIABETES HBA1C Q 6 MONTHS 06/21/2025 12/22/2024 PNEUMOCOCCAL VACCINE 50+ YEARS Completed 08/07/2024 , 03/15/2016 Insurance [facility] MEDICARE HMO * Guarantor: ASIF BENITES Account Type Relation to Patient Date of Phone Billing Address Personal/Family [address] [address] [address] [facility] Medicare Part D Advance Directives For more information, please contact: [phone] * NO CPR (In Event of Cardiopulmonary Arrest) (Latest Code Status on File) Date Activated Date Inactivated Comments 03/30/2022 10:26 AM 04/01/2022 9:29 PM Question Answer Comments Mechanical Ventilation (for respiratory distress) - Invasive (i.e. intubation): No Mechanical Ventilation (for respiratory distress) - Non-Invasive (i.e. BiPAP, CPAP): Yes Cardioversion - (Allow prior to Cardiopulmonary Arrest): No Vasopressors - (Allow prior to Cardiopulmonary A rrest): No Inotropic Agents - (Allow prior to Cardiopulmona ry Arrest): No External Pacing - (Allow prior to Cardiopulmonar y Arrest): No Invasive Monitoring - (Allow prior to Cardiopulm onary Arrest): No Care Teams Ground Mixer Relationship Specialty Start Date End Date David Soto DO PCP - General Family Practice 04/03/22
--- OUTSIDE RECORDS SUMMARY | 2025-06-04 06:43 | XMS_ITS | Encounter Summary ---
Author Organization [facility] Address [address] [place] [address] Care Team Providers Care Shake Cutter Name Role Phone Sara Bermudez MD Primary Care Provider Encounter Details Date Type Department Care Team (Latest Contact Info) Description 08/30/2000 Outpatient Historical [facility] Ear, Nose and Throat 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
--- OUTSIDE RECORDS SUMMARY | 2025-06-04 06:43 | XMS_ITS | Patient Health Record ---
Author Organization [facility] Address [address] [place] [address] Care Team Providers Care Check Out Clerk Name Role Phone David Soto DO Primary Care Provider Unavail able Leobardo Crespo Unavailable [phone] Reason For Referral No Information Medications Medication SIG (Take, Route, Frequency, Duration) Notes Start Date End Date Status Metoprolol Tartrate 100 MG Tablet 1 tablet with food Orally Twice a day Active SandoSTATIN LAR Depot 30 MG Kit as directed Intramuscular Ever 4 weeks Not-Taking Fiber - Powder as directed Orally 2 teaspoons mixed with 8 oz as needed Active Support Kombucha 1/2 bottle a day Active Acetaminophen 500 MG Capsule 1 capsule as needed Orally every 4 hrs Active Probiotic 1-250 BILLION-MG Capsule as directed Orally Act patrick Laxative Pills 25mg As needed Active Sucralfate 1 GM Tablet 1 tablet on an empty stomach Orally Three times a day Active Lovastatin ER 40 MG Tablet Extended Release 24 Hour 1 tablet at bedtime Orally Once a day Active Social History Tobacco Use: Social History Observation Description Date Details (start date - stop date) Former Smoker NA - NA Social History Drugs/Alcohol: Social Info Question Answer Notes Alcohol Screen (Audit-C) Did you have a drink containing alcohol in the past year? No Points 0 Interpretation Negative Caffeine Intake: 2-3 cups per day Coffee, Tea Tobacco Use: Social Info Question Answer Notes xTobacco Use/Smoking Are you a former smoker How long has it been since you last smoked? > 10 years Additional Details Category Social Info Options Details Drugs/Alcohol: Do you smoke marijuana? De nies Do you drink alcohol? No Problems Problem Type SNOMED Code ICD Code Onset Dates Problem Status W/U Status Risk Notes Problem Melena (9384144) Melena (K92.1) Active confirme d Problem Gross hematuria (438891242) Gross hematuria (R31.0) Active confirmed Problem Elevated PSA (847906659) Elevated prostate specific antigen [PSA] (R97.20) Active confirmed Problem Malignant tumor of urinary bladder (779540385) Malignant neoplasm of urinary bladder, unspecified site (C67.9) Active confirmed Problem History of cholecystectomy (640563534) History of cholecystectomy (Z90.49) Active confirmed Plan Of Treatment No Information Insurance Providers Payer Name Payer Address Payer Phone Subscriber Number Group Number Insured Name Patient Relationship to Insured Coverage Start Date Coverage End Date [place] [address] [place] [address] [id number] Asif Mcmillan Self - patient is the insured Medical (General) History Medical History History ICD Code measles mumps Chicken Pox whooping cough (pertussis) Pneumonia diabetes Back Trouble High Blood Pressure sleep apnea Cancer Surgical History Surgery Date(Month/Year) back surgery 1999 Tumor removal pituitary gland 1999 Gall Bladder 2012 Bileduct Gallstones X3 2020 Knee Surgery Hospitalization History Reason Date(Month/Year) See history
--- OUTSIDE RECORDS SUMMARY | 2025-06-04 06:43 | XMS_ITS | Encounter Summary ---
Author Organization [facility] Address [address] [place] [address] Care Team Providers Care Spa Consultant Name Role Phone Sara Bermudez MD Primary Care Provider Encounter Details Date Type Department Care Team (Late st Contact Info) Description 01/09/2006 Outpatient Historical [facility] Ear, Nose and Throat 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
--- NOTE | 2025-06-04 06:44 | ED_ITS ---
HPI - General Adult General: Chief complaint: Fall Stated complaint: rib pain Time Seen by Provider: 06/04/25 06:43 History of Present Illness: 84-year-old male presents emergency room complaining of left-sided rib pain after he fell out of bed this morning. He hit his ribs when he fell there was no loss conscious he denies any other injury. No difficulty breathing this large lipoma overlying the manubrium has been present for many years and is unchanged Associated symptoms: Reports chest pain (Rib pain); Deny dyspnea or rash Related Data Home Medications ?Medication ?Instructions ?Recorded ?Confirmed lovastatin 40 mg tablet 40 mg PO DAILY 12/22/1904/29 acetaminophen 325 mg capsule See Rx Instructions .Rout e 07/15/24 05/26/25 (Tylenol) .COMPLEX Pain cyanocobalamin (vitamin B-12) 1,000 mcg IM .Q30D 07/1505/26/25 1,000 mcg/mL injection solution famotidine 40 mg tablet 40 mg PO QAM 07/15/24 Previous Rx's ?Medication ?Instructions ?Recorded aspirin 81 mg tablet,delayed 81 mg PO DAILY #30 tabs 0 07/16/24 release clopidogrel 75 mg tablet 75 mg PO DAILY #30 tabs 06/29 06/21 losartan 50 mg tablet 50 mg PO DAILY #60 tabs 06/29 06/21 metoprolol tartrate 50 mg tablet 25 mg (1/2 x 50 mg) P O BID #30 tabs 07/16/24 pegvisomant 10 mg subcutaneous 10 mg SUBCUT DAILY 30 d ays #10 ea 10/02/24 solution (Somavert) methimazole 5 mg tablet 2.5 mg (1/2 x 5 mg) PO DAILY 30 03/17/25 days #60 tabs hydrocodone 5 mg-acetaminophen 325 1 tab PO Q6H PRN pa in #10 tabs 06/04/25 mg tablet Allergies Allergy/AdvReac Type Severity Reaction Status Date / Time No Known Allergies Allergy Verified 03/16/25 16:31 Review of Systems Const: Denies: fever(s) or chills Card: Reports: chest pain (Rib pain) Resp: Denies: dyspnea GI: Denies: abdominal pain : Denies: dysuria, urinary frequency or urinary urgency Musc: Denies: neck pain or back pain Skin/Breast: Denies: rash PFSH ED PFSH: Medical History History of malignant melanoma Choledocholithiasis with obstruction Acromegaly History of thyroid nodule Degenerative arthritis Pituitary adenoma, GH-producing GERD (gastroesophageal reflux disease) Other and unspecified hyperlipidemia Type 2 diabetes mellitus without complications Benign essential hypertension Vitamin B12 deficiency anemia, unspecified BPH NOS w ur obs/LUTS Prostatic hemorrhage History of primary bladder cancer Elevated PSA Surgical History History of carpal tunnel release History of ERCP ERCP with stone extraction for choledocholithiasis in 2012 and in 2019 History of melanoma excision (1994) excision of melanoma from the right ear History of knee replacement History of back surgery History of left inguinal hernia repair 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 History of cholecystectomy H/O transurethral destruction of bladder lesion Family History Father , AT AGE 75 Renal failure Diabetes Mother , AT AGE 63 Cancer CAD (coronary artery disease) Denies family history of Clotting disorder Dementia Hyperlipidemia Psychiatric illness Chronic kidney disease (CKD) Suicide Anesthesia complication Bleeding disorder Lung disease Hypertension Stroke Social History Smoking and tobacco/nicotine status: former use of tobacco/nicotine Alcohol intake: never Substance/Drug Use: never Adopted: No Caregiver/support person: No Lives independently: Yes Marital status: / Current occupational status: retired Current gender identity: Male Physical Exam Const: GENERAL APPEARANCE: cooperative ORIENTATION/CONSCIOUSNESS: Yes awake, Yes oriented to person, Yes oriented to place and Yes oriented to time HENMT: COMMON NORMALS: normocephalic, atraumatic and hearing grossly normal bilaterally HEAD & SCALP: normocephalic and atraumatic Resp: COMMON NORMALS: normal respiratory effort, No retractions, No use of accessory muscles and clear to auscultation bilaterally AUSCULTATION: clear to auscultation bilaterally Cardio: COMMON NORMALS: regular rate, regular rhythm and No murmurs present (Cardio) RATE: regular rate RHYTHM: regular rhythm GI: COMMON NORMALS: Soft to palpation and No hepatosplenomegaly present AUSCULTATION: Yes normoactive bowel sounds PALPATION: Yes Soft to palpation, No Tenderness to palpation present (GI), No Guarding due to palpation present (GI) and Yes No hepatosplenomegaly present Extremity: COMMON NORMALS: normal to inspection, capillary refill normal, no clubbing, cyanosis or edema, no calf tenderness and no pedal edema Neuro: SENSORIUM/ORIENTATION: Yes oriented to person, Yes oriented to place and Yes oriented to time Skin: COMMON NORMALS: no rashes or lesions noted GENERAL SKIN EXAM: no rashes or lesions noted Course Vital Signs: Vital signs: Vital Signs Temperature 98.3 F 06/04/25 06:41 Pulse Rate 60 06/04/25 09:33 Respiratory Rate 16 06/04/25 06:41 Blood Pressure 156/68 06/04/25 09:33 Pulse Oximetry 93 06/04/25 09:33 Oxygen Delivery Me thod Room Air 06/04/25 06:41 MDM - General Adult Medical Decision Making Head CT was negative. X-ray of the ribs equivocal for fracture CT of the chest done shows acute anterior left 6th and 7th fractures with a hematoma around the 6 and 7 fractures extends centrally but does not impinge on the pericardium. Rib x-ray is okay today on plain film more lateral were not noted on the CT. Treat with pain medications as above. Return if has further problems. Patient is on dual antiplatelet therapy with Plavix and aspirin but no direct anticoagulants. Medical Records I reviewed the patient's medical records. Lab Data I reviewed the patient's lab results. Radiology Impressions Ribs X-Ray 06/04/25 06:47 IMPRESSION: Equivocal findings for nondisplaced left rib fractures as above. Head CT 06/04/25 07:33 IMPRESSION: 1. No acute intracranial hemorrhage or edema. 2. No skull fracture or scalp hematoma. 3. Mild symmetric cerebral and cerebellar atrophy and moderate small vessel disease. Chest CT 06/04/25 08:06 IMPRESSION: 1. No pneumothorax or pulmonary contusion. 2. Nondisplaced acute anterior LEFT sixth and seventh rib fractures at the costochondral junction. 3. Hematoma surrounds the fractures of the LEFT sixth and seventh ribs with extension centrally to about the pericardium of the RIGHT ventricle. 4. 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 5. Dilated pulmonary artery. 6. Prior cholecystectomy and pneumobilia. Notified Joo Erwin DO at 06/04/2025 9:02 AM. All radiology interpretation(s) finalized by discharge Discharge Plan Discharge Patient Disposition: Home Clinical Impression: Fracture of left sixth rib, Fracture of left seventh rib, Fall Condition: Stable Prescriptions: New hydrocodone-acetaminophen 5-325 mg tablet 1 tab PO Q6H PRN (Reason: pain) Qty: 10 0RF No Action lovastatin 40 mg tablet 40 mg PO DAILY methimazole 5 mg tablet 2.5 mg PO DAILY 30 Days Qty: 60 0RF Rx Instructions: take 2.5 mg daily Somavert 10 mg recon soln 10 mg SUBCUT DAILY 30 Days Qty: 10 3RF Rx Instructions: Inject 10mg every other day famotidine 40 mg tablet 40 mg PO QAM cyanocobalamin (vitamin B-12) 1,000 mcg/mL solution 1,000 mcg IM .Q30D Tylenol 325 mg Capsule See Rx Instructions .ROUTE .COMPLEX Rx Instructions: Take 2 capsules by mouth in the morning, evening, and 2 tablets at noon if needed for headache. clopidogrel 75 mg Tablet 75 mg PO DAILY Qty: 30 0RF aspirin 81 mg Tablet,Delayed Release (Dr/Ec) 81 mg PO DAILY Qty: 30 0RF losartan 50 mg tablet 50 mg PO DAILY Qty: 60 0RF metoprolol tartrate 50 mg tablet 25 mg PO BID Qty: 30 0RF Discharge Orders: Discharge ED (Routine); Ordered 06/04/25 Ordered By: Joo Erwin Referrals: David Soto DO [Primary Care Provider, Family Practice] Discharge Diet: Usual diet Discharge Activity: Increase activity as tolerated Patient Instructions: Opioid Safety, Pain Management, Patient Portal & Tammy Instructions Activity Restrictions/Additional Instructions: Thank you for choosing [facility] for your healthcare needs today. It is very important that you follow up as instructed or that you return to the Emergency Department should you have concerns or if your condition changes or worsens in any way. You were seen in the emergency room after a fall. Imaging shows you have nondisplaced fractures of the 6th and 7th ribs. There is a small amount of bleeding around them. Scan of your head and neck were negative. He will be discharged home can use pain medications as needed follow-up with your doctor as needed. Your ribs will likely be very sore for the next couple of weeks likely worse tomorrow than they are today. 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
--- NOTE | 2025-06-04 06:45 | ECG_ITS ---
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 Measurements Intervals [place] Rate: 56 P: -70 RI: 212 QRS: -32 QRSD: 94 T: 23 QT: 406 QTc: 393 Interpretive Statements SINUS BRADYCARDIA WITH FIRST DEGREE AV BLOCK LEFT AXIS DEVIATION [QRS AXIS < -30] Compared to ECG 07/15/2024 06:11:49 First degree AV block now present Electronically Signed On 06-05-2025 13:53:15 CDT by Joanne Carpenter M.D. [email or web address] [id number]
--- NOTE | 2025-06-04 06:47 | XR_ITS ---
WS: [id number] XR ribs LT mn 3V w CXR1V [id number] REASON FOR EXAM: trauma FINDINGS: Very subtle deformities of the lateral sixth the eighth left ribs which may represent acute nondisplaced fractures. Equivocal. No underlying lung or pleural abnormality. No pneumothorax or subcutaneous emphysema. XR/XR ribs LT mn 3V w CXR1V [id number] IMPRESSION: Equivocal findings for nondisplaced left rib fractures as above.
--- NOTE | 2025-06-04 06:52 | PC.NURSE ---
bedside report completed with Nancy Pandey RN, prev nurse left prior to bedside charting
--- NOTE | 2025-06-04 07:33 | CT_ITS ---
WS: [id number] CT HEAD NONCONTRAST HISTORY: Fall/closed head injury TECHNIQUE: Contiguous axial imaging performed through the brain. Bone and soft tissue windows. Sagittal and coronal reformats reviewed. All CT scans at [facility] use at least one of these dose optimization techniques: automated exposure control; mA and/or kV adjustment per patient size (includes targeted exams where dose is matched to clinical indication); or iterative reconstruction. DLP: 1048.28 mGy.cm COMPARISON: 07/14/2024 Mild symmetric atrophy. Moderate small vessel ischemic disease. Prior lacunar infarct LEFT carbone radiata. Moderate cerebellar atrophy. No acute hemorrhage. No edema. Ventricles: Normal size with no hydrocephalus. Paranasal sinuses: As visualized are clear. Mastoid air cells: Well pneumatized. Calvarium and scalp: Skull is intact with no soft tissue edema or swelling. Dense calcification in the distal LEFT vertebral artery, unchanged. Moderate calcification in the intracranial carotid arteries. CT/CT head wo con* [id number] IMPRESSION: 1. No acute intracranial hemorrhage or edema. 2. No skull fracture or scalp hematoma. 3. Mild symmetric cerebral and cerebellar atrophy and moderate small vessel di sease.
--- NOTE | 2025-06-04 08:06 | CT_ITS ---
WS: [id number] CT chest wo con [id number] HISTORY: possible L rib fx TECHNIQUE: Axial imaging performed through the thorax. Coronal and sagittal reformats are submitted. All CT scans at [facility] use at least one of these dose optimization techniques: automated exposure control; mA and/or kV adjustment per patient size (includes targeted exams where dose is matched to clinical indication); or iterative reconstruction. CONTRAST: None DLP: 465.02 mGy.cm COMPARISON: 03/07/2020 Lungs and central airway: Moderate pulmonary hyperexpansion. Dependent changes at the lung bases. No mass or pulmonary nodule. No pneumothorax or pulmonary contusion. Pleura: Normal. No pleural effusion. Heart and pericardium: Mild cardiomegaly. Mediastinum and tho: No mediastinum or hilar adenopathy. Vessels: Ectatic aorta. No ascending aortic aneurysm. Dense calcification throughout the aortic arch and descending aorta. Mild aneurysmal dilatation of the distal aortic arch and proximal descending aorta to 4.6 cm. Pulmonary artery is dilated. Chest wall and lower neck: Chest wall contusion anteriorly at the level of the heart. Hematoma surrounds the LEFT sixth and seventh rib fractures. Upper abdomen: Pneumobilia noted within the liver. Prior cholecystectomy. No adrenal mass. Osseous structures: Moderate degenerative changes in the thoracic spine with hypertrophic osteophytes. No thoracic spine fracture. Moderate bilateral degenerative joint disease involving the shoulders. Chest wall contusion with hematoma surrounding the anterior LEFT sixth and seventh ribs at the costochondral junction. These fractures are near the costochondral junction and are not displaced but there is surrounding hematoma. The hematoma extends centrally into the fat surrounding the heart. Hematoma extends to minimally contact the pericardium over the RIGHT ventricle. There is no mass effect upon the heart. CT/CT chest wo con [id number] IMPRESSION: 1. No pneumothorax or pulmonary contusion. 2. Nondisplaced acute anterior LEFT sixth and seventh rib fractures at the cos tochondral junction. 3. Hematoma surrounds the fractures of the LEFT sixth and seventh ribs with ex tension centrally to about the pericardium of the RIGHT ventricle. 4. 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 5. Dilated pulmonary artery. 6. Prior cholecystectomy and pneumobilia. Notified Joo Erwin DO at 06/04/2025 9:02 AM.
[2025-06-04 08:46] VITALS: BP 171/81; PULSE 60; O2SAT 95
[2025-06-04 09:33] VITALS: BP 156/68; PULSE 60; O2SAT 93
== END 2025-06-04 09:34 | disposition home or self-care (01) ==
PROVIDERS: Emergency Provider Family Medicine; PCP Electrodiagnostic Medicine
DX: S22.42XA Multiple fractures of ribs, left side, initial encounter for closed fracture (principal); Z79.82 Long term (current) use of aspirin; Z79.02 Long term (current) use of antithrombotics/antiplatelets; Z87.891 Personal history of nicotine dependence; E11.9 Type 2 diabetes mellitus without complications; Z85.46 Personal history of malignant neoplasm of prostate; Z85.820 Personal history of malignant melanoma of skin; I10 Essential (primary) hypertension; W06.XXXA Fall from bed, initial encounter
CPT/HCPCS: 70450; 71101; 71250; 93005; 99284; J9999

== ENCOUNTER 2025-08-17 07:43 | Outpatient (CLI) | payer MEDICARE, SELFPAY ==
[2025-08-17 09:18] LABS: Estmated Average Glucose 143; Hemoglobin A1C 6.6 % (4.0-6.0)
[2025-08-17 09:31] LABS: Alanine Aminotransferase 13 U/L (0-41); Albumin Level 4.5 g/dL (3.5-5.2); Alkaline Phosphatase 60 U/L (40-130); Anion Gap 13.7 (5-19); Aspartate Amino Transferase 14 U/L (0-40); Blood Urea Nitrogen 17 mg/dL (8-23); Calcium 10.4 mg/dL (8.5-10.5); Carbon Dioxide 28 mmol/L (22-29); Chloride 99 mmol/L (98-107); Cholesterol 162 mg/dL (0-200); Free T4 Free Thyroxine 1.03 ng/dL (0.82-1.77); Globulin 2.7 g/dL (1.3-4.6); Glucose 174 mg/dL (65-115); HDL Cholesterol 50 mg/dL (60-100); Osmolality Calculated 290 mOsm/kg (285-295); Potassium 3.7 mmol/L (3.5-5.1); Sodium 137 mmol/L (136-145); Thyroid Stimulating Hormone 0.87 uIU/mL (0.27-4.20); Total Protein 7.2 g/dL (6.6-8.7); Triglycerides 193 mg/dL (0-150)
[2025-08-17 10:31] LABS: Creatinine Urine, Random 194 mg/dL (39-259)
[2025-08-17 10:44] LABS: Microalbum Creatinine Ratio Ur 227 mg/dL (0-20)
== END 2025-08-17 07:44 | disposition home or self-care (01) ==
LOC: LAB 07:43
PROVIDERS: PCP Electrodiagnostic Medicine; Visit Provider Internal Medicine
DX: I63.9 Cerebral infarction, unspecified (principal); I10 Essential (primary) hypertension; K59.00 Constipation, unspecified; R79.89 Other specified abnormal findings of blood chemistry; K80.20 Calculus of gallbladder without cholecystitis without obstruction; E11.9 Type 2 diabetes mellitus without complications; D35.2 Benign neoplasm of pituitary gland; E22.0 Acromegaly and pituitary gigantism
CPT/HCPCS: 36415; 80053; 80061; 82044; 83036; 84305; 84439; 84443; 84480

== ENCOUNTER → 2025-08-18 08:12 | Outpatient (BNVA) | payer MEDICARE, SELFPAY | PROVIDERS: PCP Electrodiagnostic Medicine; Visit Provider Nurse Practitioner Family | DX: L98.8 Other specified disorders of the skin and subcutaneous tissue (principal); D17.1 Benign lipomatous neoplasm of skin and subcutaneous tissue of trunk; L30.4 Erythema intertrigo; Z08 Encounter for follow-up examination after completed treatment for malignant neoplasm; Z86.006 Personal history of melanoma in-situ; L56.8 Other specified acute skin changes due to ultraviolet radiation; L57.0 Actinic keratosis | CPT/HCPCS: 17000; 99213 ==

== ENCOUNTER → 2025-08-25 07:37 | Outpatient (BNVA) | payer MEDICARE, SELFPAY | PROVIDERS: PCP Electrodiagnostic Medicine; Visit Provider Internal Medicine Endocrinology, Diabetes & Metabolism | DX: D35.2 Benign neoplasm of pituitary gland (principal); R79.89 Other specified abnormal findings of blood chemistry; E11.9 Type 2 diabetes mellitus without complications; K80.20 Calculus of gallbladder without cholecystitis without obstruction; K59.01 Slow transit constipation; I10 Essential (primary) hypertension; I63.9 Cerebral infarction, unspecified; E05.00 Thyrotoxicosis with diffuse goiter without thyrotoxic crisis or storm | CPT/HCPCS: 99214 ==

== ENCOUNTER → 2025-09-21 13:01 | Outpatient (BNVA) | payer MEDICARE, SELFPAY | PROVIDERS: PCP Electrodiagnostic Medicine; Referring Provider Electrodiagnostic Medicine; Visit Provider Internal Medicine | DX: I48.91 Unspecified atrial fibrillation (principal); Z79.01 Long term (current) use of anticoagulants; Z87.891 Personal history of nicotine dependence; Z86.73 Personal history of transient ischemic attack (TIA), and cerebral infarction without residual deficits | CPT/HCPCS: 99204 ==

== ENCOUNTER → 2025-09-29 12:10 | Outpatient (BNVA) | payer MEDICARE, SELFPAY | PROVIDERS: PCP Electrodiagnostic Medicine; Visit Provider Nurse Practitioner Family | DX: L23.9 Allergic contact dermatitis, unspecified cause (principal); L21.8 Other seborrheic dermatitis; L30.4 Erythema intertrigo; L98.8 Other specified disorders of the skin and subcutaneous tissue; Z08 Encounter for follow-up examination after completed treatment for malignant neoplasm; Z86.006 Personal history of melanoma in-situ; L57.0 Actinic keratosis | CPT/HCPCS: 17000; 99214 ==

== ENCOUNTER 2025-10-05 07:25 | Outpatient (CLI) | payer MEDICARE, SELFPAY ==
--- NOTE | 2025-10-05 | ECG_ITS ---
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 The perfusion scan will be documented separately. DATA: Baseline heart rate was 108 beats per minute. Baseline blood pressure was 126/82 millimeters of mercury. Target heart rate was 134. Maximum heart rate achieved was 148. which was 110% of the predicted target heart rate. Maximum blood pressure was 179/96 millimeters of mercury. The reason for ending the test was completion of the protocol. The patient did not experience any symptoms. ELECTROCARDIOGRAM: BASELINE: Atrial fibrillation, left axis. Poor R wave progression in the anterolateral leads, interventricular conduction delay EXERCISE: After Lexiscan injection, no ST-T changes suggestive of ischemic noted. No arrhythmia noted. CONCLUSION: Please note due to baseline abnormality of the EKG specificity and sensitivity of the EKG portion of LexiScan MIBI stress test will be low 1. EKG not suggestive of ischemia 2. Lexiscan injection unremarkable. 3. Perfusion scan will be documented separately. Electronically Signed On 10-11-2025 18:02:10 PLUMBING MANAGER by ZEN VELASQUEZ [email or web address] [id number]
--- NOTE | 2025-10-05 07:54 | NMCV_ITS ---
NM mariia perf SPECT r/s* [id number] Asif Mcmillan Age: 85 Gender: M : 1940 Exam Date: 10/05/2025 08:27 Ordering Phys: Steve Back M.D ([email or web address]) Technologist: DANIELLE Hernández Exam Location: [facility] Indications: cp STRESS TEST Please see separate stress test report in [facility] for full findings IMAGE PROTOCOL Rest/Stress 1 Lexiscan Day Radiopharmaceutical Dose (mCi) Administration Site Administered by Rest: Tc-99m 10.7 IV DANIELLE Hernández Sestamibi Stress:Tc-99m 32.4 IV Diana Hill, FOREST [employer] ECOLOGY PROFESSOR Sestamibi Rest: 05-Oct-2025 60 Discovery 630 Stress: 05-Oct-2025 30 Discovery 630 0.4mg Lexiscan. Supine position only as patient was unable to lay prone. SPECT RESULTS Technical Quality: Good Raw Data Analysis: Normal Image Corrections: No attenuation or motion correction applied Summed Stress Score: 0 Summed Rest Score: 0 Summed Difference Score: 0 PERFUSION FINDINGS Medium sized area of fixed perfusion defect noted in the basal inferior wall in the absence of wall motion abnormality it could be an artifact FUNCTIONAL RESULTS (calculated via Gated SPECT) Stress Image LV EF (%): 42 Stress EDV (mL):102 TID: 1.05 Stress ESV (mL):59 FUNCTIONAL FINDINGS: There is normal left ventricular systolic function. IMPRESSIONS This study is negative for ischemia Judith Cardenas MD (Electronically Signed) Final Date: 07 October 2025 08:08 S
[2025-10-05 08:29] VITALS: BMI 34.4
[2025-10-05 09:17] VITALS: BP 130/95; PULSE 110
== END 2025-10-05 07:26 | disposition home or self-care (01) ==
LOC: RAD 07:26 → CDL 08:05
PROVIDERS: PCP Electrodiagnostic Medicine; Visit Provider Internal Medicine
DX: R01.1 Cardiac murmur, unspecified (principal); R07.9 Chest pain, unspecified; R93.1 Abnormal findings on diagnostic imaging of heart and coronary circulation
CPT/HCPCS: 36415; 78452; 93017; 93306; 96374; A9500; J2785